=== PATIENT | female | born 1995 | race Caucasian/White ===

== ENCOUNTER → 2016-08-17 | Outpatient (CLI) | payer BC ==
--- NOTE | 2016-08-17 14:38 | US ---
EXAMINATION TYPE: US abdomen complete DATE OF EXAM: 08/17/2016 2:12 PM COMPARISON: 10/08/2013 CLINICAL HISTORY: R10.30 lower abdominal pain. left flank pain EXAM MEASUREMENTS: Liver Length: 14.3 cm Gallbladder Wall: 0.1 cm CBD: 0.4 cm Spleen: 8.4 cm Right Kidney: 10.6 x 4.5 x 4.4 cm Left Kidney: 10.5 x 5.3 x 4.8 cm Findings: Pancreas: tail gassed out, vis portions wnl Liver: wnl Gallbladder: wnl Evidence for sonographic Arizmendi's sign: no CBD: wnl Spleen: wnl Right Kidney: wnl Left Kidney: wnl Upper IVC: wnl Abd Aorta: wnl The liver is homogenous. The intrahepatic portion of the IVC and proximal abdominal aorta are within normal limits. There is no evidence of cholelithiasis. Common bile duct is unremarkable. The visu alized portions of the pancreas are homogenous. The spleen is unremarkable. Kidneys are symmetric a nd free of hydronephrosis. No renal lesions are seen. IMPRESSION: No significant abnormality.
--- NOTE | 2016-08-17 14:38 | US ---
EXAMINATION TYPE: US transvaginal DATE OF EXAM: 08/17/2016 2:27 PM COMPARISON: NONE CLINICAL HISTORY: R10.30 lower abdominal pain. rt states left flank pain TECHNIQUE: Transvaginal (TV) Date of LMP: has subcutaneous control chip in arm x 2 yrs, no cycles EXAM MEASUREMENTS: Uterus: 6.7 x 2.7 x 4.5 cm Endometrial Stripe: 0.1 cm Right Ovary: 2.4 x 1.6 x 3.0 cm Left Ovary: 2.6 x 1.2 x 2.3 cm Findings: 1. Uterus: Anteverted wnl 2. Endometrium: wnl 3. Right Ovary: wnl 4. Left Ovary: wnl 5. Bilateral Adnexa: wnl 6. Posterior cul-de-sac: Trace free fluid IMPRESSION: Trace free fluid. Otherwise unremarkable study.
== END | disposition home or self-care (01) ==
LOC: RADUSWWP 13:50
PROVIDERS: ATTEND Family Medicine
DX: R10.9 Unspecified abdominal pain (principal)
CPT/HCPCS: 76700; 76830

== ENCOUNTER 2017-03-05 11:35 | Emergency (ER) | payer BC ==
[2017-03-05] MEDS ORDERED: SODIUM CHLORIDE 0.9% 500 ML BAG ONE (11:38)
--- NOTE | 2017-03-05 12:49 | ED ---
General Adult HPI - General Stated complaint: vomiting blood/stomach burning Time Seen by Provider: 03/05/17 12:30 Source: RN notes reviewed - History of Present Illness Initial comments: This is a 21-year-old female presents emergency Department stating about 9:00 this morning she started becoming nauseated and then started vomiting. Patient states then she had an episode of blood in the vomitus. Patient states she has a little epigastric abdominal pain. Patient denies any diarrhea. Patient denies any fever chills. Patient states she does not feel ill in any other way. Patient did not take anything for the vomiting. Patient denies chest pain difficulty breathing shortness breath. Patient denies any previous history of similar. - Related Data Home Medications Medication Instructions Recorded Confirmed Levonorgestrel-Ethin Estradiol 1 tab PO HS 03/05/17 03/05/17 [Trivora-28 Tablet] Allergies Allergy/AdvReac Type Severity Reaction Status Date / Time azithromycin [From Zithromax] Allergy Unknown Verified 03/05/17 13:38 latex Allergy Rash/Hives Verified 03/05/17 13:38 Review of Systems ROS Statement: Those systems with pertinent positive or pertinent negative responses have been documented in the HPI. ROS Other: All systems not noted in ROS Statement are negative. Past Medical History Past Medical History: No Reported History History of Any Multi-Drug Resistant Organisms: None Reported Past Surgical History: Tonsillectomy Past Psychological History: No Psychological Hx Reported Smoking Status: Never smoker Past Alcohol Use History: None Reported Past Drug Use History: None Reported General Exam - General Exam Comments Initial Comments: GENERAL: Patient is well-developed and well-nourished. Patient is nontoxic and well- hydrated and is in mild distress. ENT: Neck is soft and supple. No significant lymphadenopathy is noted. Oropharynx is clear. Moist mucous membranes. Neck has full range of motion without eliciting any pain. EYES: The sclera were anicteric and conjunctiva were pink and moist. Extraocular movements were intact and pupils were equal round and reactive to light. Eyelids were unremarkable. PULMONARY: Unlabored respirations. Good breath sounds bilaterally. No audible rales rhonchi or wheezing was noted. CARDIOVASCULAR: There is a regular rate and rhythm without any murmurs gallops or rubs. ABDOMEN: Soft and nontender with normal bowel sounds. No palpable organomegaly was noted. There is no palpable pulsatile mass. SKIN: Skin is clear with no lesions or rashes and otherwise unremarkable. NEUROLOGIC: Patient is alert and oriented x3. Cranial nerves II through XII are grossly intact. Motor and sensory are also intact. Normal speech, volume and content. Symmetrical smile. MUSCULOSKELETAL: Normal extremities with adequate strength and full range of motion. LYMPHATICS: No significant lymphadenopathy is noted PSYCHIATRIC: Normal psychiatric evaluation. Medical Decision Making - Medical Decision Making I went back into the room to reevaluate the patient she was no longer having abdominal pain she was no longer nauseated. Patient felt good enough to be discharged home to follow-up with her family doctor - Lab Data Result diagrams: 03/05/17 12:42 03/05/17 12:42 Lab Results 03/05/17 03/05/17 03/05/17 Range/Units 12:42 12:42 12:42 WBC 7.4 (4.0-11.0) k/uL RBC 3.82 (3.80-5.40) m/uL Hgb 12.0 (11.4-16.0) gm/dL Hct 35.2 (34.0-46.0) % MCV 92.1 (80.0-100.0) fL MCH 31.4 (25.0-35.0) pg MCHC 34.1 (31.0-37.0) g/dL RDW 12.5 (11.5-15.5) % Plt Count 247 (150-450) k/uL Neutrophils % (Manual) 60 % Lymphocytes % (Manual) 33 % Monocytes % (Manual) 4 % Eosinophils % (Manual) 1 % Basophils % (Manual) 0 % Neutrophils # (Manual) 4.44 (1.3-7.7) k/uL Lymphocytes # (Manual) 2.44 (1.0-4.8) k/uL Monocytes # (Manual) 0.30 (0-1.0) k/uL Eosinophils # (Manual) 0.07 (0-0.7) k/uL Basophils # (Manual) 0.00 (0-0.2) k/uL PT 11.0 (9.0-12.0) sec INR 1.1 (<1.2) APTT 24.1 (22.0-30.0) sec Sodium 139 (137-145) mmol/L Potassium 3.8 (3.5-5.1) mmol/L Chloride 108 H (98-107) mmol/L Carbon Dioxide 23 (22-30) mmol/L Anion Gap 8 mmol/L BUN 7 (7-17) mg/dL Creatinine 0.50 L (0.52-1.04) mg/dL Est GFR (MDRD) Af Amer >60 (>60 ml/min/1.73 sqM) Est GFR (MDRD) Non-Af >60 (>60 ml/min/1.73 sqM) Glucose 84 (74-99) mg/dL Calcium 9.5 (8.4-10.2) mg/dL Total Bilirubin 0.4 (0.2-1.3) mg/dL AST 15 (14-36) U/L ALT 29 (9-52) U/L Alkaline Phosphatase 42 (38-126) U/L Total Protein 6.9 (6.3-8.2) g/dL Albumin 4.1 (3.5-5.0) g/dL Amylase 33 (30-110) U/L Lipase 86 (23-300) U/L Disposition Clinical Impression: Hematemesis, Acute vomiting Disposition: HOME SELF-CARE Condition: Good Instructions: Acute Nausea and Vomiting (ED) Referrals: Byron Leslie MD [Primary Care Provider] - 1-2 days Time of Disposition: 14:32
[2017-03-05 13:13] LABS: HCT 35.2 % (34.0-46.0); MCH 31.4 pg (25.0-35.0); MCV 92.1 fL (80.0-100.0); RBC 3.82 m/uL (3.80-5.40); WBC 7.4 k/uL (4.0-11.0)
[2017-03-05 13:14] LABS: CH 30.8; CHCM 33.6; HDW 2.27; MCHC 34.1 g/dL (31.0-37.0); Mean Platelet Volume 7.2; RDW 12.5 % (11.5-15.5)
[2017-03-05 13:24] LABS: INR 1.1 (<1.2); Partial Thromboplastin Time 24.1 sec (22.0-30.0)
[2017-03-05 13:26] LABS: ALT 29 U/L (9-52); AST 15 U/L (14-36); Alkaline Phosphatase 42 U/L (38-126); Amylase 33 U/L (30-110); Anion Gap 8 mmol/L; Blood Urea Nitrogen 7 mg/dL (7-17); Calcium 9.5 mg/dL (8.4-10.2); Carbon Dioxide 23 mmol/L (22-30); Chloride 108 mmol/L (98-107); Glucose 84 mg/dL (74-99); Non-African American GFR(MDRD) >60 (>60 ml/min/1.73 sqM); Potassium 3.8 mmol/L (3.5-5.1); Sodium 139 mmol/L (137-145); Total Bilirubin 0.4 mg/dL (0.2-1.3); Total Protein 6.9 g/dL (6.3-8.2)
--- NOTE | 2017-03-05 14:20 | XR ---
EXAMINATION TYPE: XR abdomen 1V DATE OF EXAM: 03/05/2017 CLINICAL HISTORY: Pain and hemoptysis. TECHNIQUE: 2 upright KUB images of the abdomen are obtained. COMPARISON: None. FINDINGS: Scattered gas is seen in non-distended small bowel loops. Gas and fecal material is seen in non-distended colon. Several overlying metallic skin ornaments are present. There is no visceromeg denise, pneumoperitoneum, or abnormal calcification appreciated. The lung bases are clear and the osse ous structures are intact. IMPRESSION: Overall nonobstructive bowel gas pattern.
--- NOTE | 2017-03-05 14:20 | XR ---
EXAMINATION TYPE: XR chest 2V DATE OF EXAM: 03/05/2017 CLINICAL HISTORY: Pain and hemoptysis. TECHNIQUE: Frontal and lateral views of the chest are obtained. COMPARISON: Chest x-ray June 13, 2016. FINDINGS: There is no focal air space opacity, pleural effusion, or pneumothorax seen. The cardiac silhouette size is within normal limits. The osseous structures are intact. Metallic ornament overl ies the mid sternum. IMPRESSION: No acute process identified.
[2017-03-05] MEDS ORDERED: ONDANSETRON 4 MG ODT STARTER PACK 2 TAB BTL PO STA (14:33)
[2017-03-05 14:49] VITALS: BP 134/87; PULSE 87; RESP 18; TEMP 98.4
== END 2017-03-05 14:49 | disposition home or self-care (01) ==
LOC: EC 11:35
DX: K92.0 Hematemesis (principal); R07.9 Chest pain, unspecified; Z79.3 Long term (current) use of hormonal contraceptives; Z88.1 Allergy status to other antibiotic agents; Z91.040 Latex allergy status
CPT/HCPCS: 99284 ×2; 36415; 80053; 82150; 83690; 85027; 85610; 85730; 71020; 74000; S0119

== ENCOUNTER 2017-03-14 14:13 | Emergency (ER) | payer OTHER, BC ==
[2017-03-14 14:31] VITALS: BP 122/84; PULSE 98; RESP 18; TEMP 97.6
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
== END 2017-03-14 15:18 | disposition home or self-care (01) ==
LOC: EC 14:13
DX: S46.912A Strain of unspecified muscle, fascia and tendon at shoulder and upper arm level, left arm, initial encounter (principal); S09.90XA Unspecified injury of head, initial encounter; Z88.1 Allergy status to other antibiotic agents; Z91.040 Latex allergy status; Z79.3 Long term (current) use of hormonal contraceptives; V43.53XA Car driver injured in collision with pick-up truck in traffic accident, initial encounter; Y92.410 Unspecified street and highway as the place of occurrence of the external cause
CPT/HCPCS: 70450; 72125; 99284

== ENCOUNTER → 2017-04-11 | Outpatient (CLI) | payer BC ==
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
== END | disposition home or self-care (01) ==
LOC: RADCTMAIN 07:55
PROVIDERS: ATTEND Orthopaedic Surgery
DX: R93.7 Abnormal findings on diagnostic imaging of other parts of musculoskeletal system (principal); M25.512 Pain in left shoulder; S40.012A Contusion of left shoulder, initial encounter
CPT/HCPCS: 73202; Q9967

== ENCOUNTER 2017-09-19 10:56 | Emergency (ER) | payer BC ==
[2017-09-19] MEDS ORDERED: ACETAMINOPHEN TAB 500 MG TAB PO STA (12:08)
[2017-09-19] MEDS ORDERED: IBUPROFEN 600 MG TAB PO STA (12:08)
--- NOTE | 2017-09-19 12:15 | ED ---
URI HPI - General Chief Complaint: Upper Respiratory Infection Stated Complaint: bronchitis, Dehydration Time Seen by Provider: 09/19/17 12:00 Source: patient, RN notes reviewed Mode of arrival: ambulatory Limitations: no limitations - History of Present Illness Initial Comments: This is a 22-year-old female who presents to the emergency department with chief complaint of bronchitis. Patient states that she has had fevers, chills, body aches, sore throat, and a nonproductive cough since Saturday. She was seen at her doctor's office on Saturday and was diagnosed with allergies. She returned to her doctor's yesterday and was diagnosed with bronchitis. She was given a shot of Rocephin and was prescribed amoxicillin and an albuterol inhaler. Patient states that she is not feeling any better so presents to the emergency department today. Denies abdominal pain, nausea or vomiting, diarrhea or constipation. Appetite is poor, however patient does continue to urinate normally. Her last dose of medication was 7:30 this morning when she took Tylenol cold and flu. - Related Data Home Medications Medication Instructions Recorded Confirmed Levonorgestrel-Ethin Estradiol 1 tab PO HS 03/05/17 03/05/17 [Trivora-28 Tablet] Previous Rx's Medication Instructions Recorded Cefdinir [Omnicef] 300 mg PO Q12HR #14 capsule 09/19/17 predniSONE 20 mg PO BID #6 tab 09/19/17 Allergies Allergy/AdvReac Type Severity Reaction Status Date / Time azithromycin [From Zithromax] Allergy Unknown Verified 03/14/17 14:25 latex Allergy Rash/Hives Verified 03/14/17 14:25 tramadol [From Ultram] Allergy Rash/Hives Verified 09/19/17 11:08 Review of Systems ROS Statement: Those systems with pertinent positive or pertinent negative responses have been documented in the HPI. ROS Other: All systems not noted in ROS Statement are negative. Past Medical History Past Medical History: No Reported History History of Any Multi-Drug Resistant Organisms: None Reported Past Surgical History: Tonsillectomy Past Psychological History: No Psychological Hx Reported Smoking Status: Never smoker Past Alcohol Use History: None Reported Past Drug Use History: None Reported General Exam - General Exam Comments Initial Comments: General: Awake and alert, well-developed; in no apparent distress. Mother is at bedside. HEENT: Head atraumatic, normocephalic. Pupils are equal, round and reactive to light. Extraocular movements intact. Oropharynx moist without erythema or exudate. Neck: Supple. Normal ROM. Cardiovascular: Regular rate and rhythm. No murmurs, rubs or gallops. Chest symmetrical. Respiratory: Normal respiratory effort with no use of accessory muscles. Rhonchi left lower lobe. No wheezes or rales. Abdomen: Soft, non-tender, non-distended. No rigidity, rebound or guarding. Normal bowel sounds in all 4 quadrants. Musculoskeletal: Normal ROM, no tenderness bilateral upper and lower extremities. Ambulating normally. Skin: [place], warm and dry without rashes or lesions. Neurological: Alert and oriented x3. CN II-XII grossly intact. Speech is fluent and answers are appropriate. No focal neuro deficits. Psychiatric: Normal mood and affect. No overt signs of depression or anxiety noted. Limitations: no limitations Course Vital Signs 09/19/17 09/19/17 11:03 13:08 Temperature 101.1 F H 99.4 F Pulse Rate 112 H 104 H Respiratory 20 18 Rate Blood Pressure 123/80 113/65 O2 Sat by Pulse 98 98 Oximetry Medical Decision Making - Medical Decision Making This is a 22-year-old female who presents to the emergency department with chief complaint of bronchitis. Patient is febrile on presentation. She was given doses of Tylenol and Motrin. Patient tested negative for influenza, strep throat and Michele-Bowman virus. Chest x-ray revealed no acute cardiopulmonary processes. Rhonchi was noted in the left lower lobe. Amoxicillin will be discontinued and patient will be placed on cefdinir as she is allergic to azithromycin. She'll also be prescribed 3 days worth of steroids. Patient's vital signs have stabilized and she is in no acute distress. She will be discharged home. Return parameters were discussed. She is in agreement with plan and voices understanding. All questions were answered. - Lab Data Lab Results 09/19/17 09/19/17 Range/Units 11:10 12:30 Heterophile Antibody Negative (Negative) Influenza Type A RNA Not Detected (Not Detectd) Influenza Type B (PCR) Not Detected (Not Detectd) Group A Strep Rapid Negative (Negative) - Radiology Data Radiology results: report reviewed Chest x-ray findings: The cardiomediastinal silhouette, aorta and pulmonary vasculature are within normal limits. Lungs and pleural space are clear. Right mammary ornamentation. Impression: No acute cardiopulmonary process. Disposition Clinical Impression: Bronchitis Disposition: HOME SELF-CARE Condition: Good Instructions: Upper Respiratory Infection (ED), Acute Bronchitis (ED) Additional Instructions: Please take medications as prescribed. Please follow up with primary care provider within 1-2 days. Return to emergency department if symptoms should worsen or any concerns arise. Prescriptions: Cefdinir [Omnicef] 300 mg PO Q12HR #14 capsule predniSONE 20 mg PO BID #6 tab Referrals: Byron Leslie MD [Primary Care Provider] - 1-2 days Time of Disposition: 13:28
--- NOTE | 2017-09-19 12:16 | XR ---
EXAMINATION TYPE: XR chest 2V DATE OF EXAM: 09/19/2017 COMPARISON: 03/05/2017 HISTORY: 22-year-old female with pain TECHNIQUE: PA and lateral views FINDINGS: The cardiomediastinal silhouette, aorta, and pulmonary vasculature are within normal limits. Lungs an d pleural spaces are clear. Right mammary ornamentation. IMPRESSION: No acute cardiopulmonary process.
[2017-09-19 13:09] VITALS: BP 113/65; PULSE 104; RESP 18; TEMP 99.4
[2017-09-19] MEDS ORDERED: predniSONE 50 MG TAB PO STA (13:25)
== END 2017-09-19 13:37 | disposition home or self-care (01) ==
LOC: EC 10:56
DX: J40 Bronchitis, not specified as acute or chronic (principal); Z88.1 Allergy status to other antibiotic agents; Z88.5 Allergy status to narcotic agent; Z91.040 Latex allergy status; Z79.3 Long term (current) use of hormonal contraceptives
CPT/HCPCS: 36415; 71046; 86308; 87081; 87430; 87502; 99283

== ENCOUNTER 2017-11-23 06:55 | Emergency (ER) | payer OTHER, BC ==
[2017-11-23 08:01] LABS: Basophils % (A) 0 %; Eosinophils % (A) 0 %; HCT 37.1 % (34.0-46.0); HGB 12.4 gm/dL (11.4-16.0); Lymphocytes # (A) 0.7 k/uL (1.0-4.8); Lymphocytes % (A) 5 %; MCH 30.7 pg (25.0-35.0); MCHC 33.5 g/dL (31.0-37.0); MCV 91.8 fL (80.0-100.0); Mean Platelet Volume 7.4; Monocytes # (A) 0.4 k/uL (0-1.0); Monocytes % (A) 4 %; Neutrophils # (A) 11.2 k/uL (1.3-7.7); Neutrophils % (A) 90 %; Platelet Count 207 k/uL (150-450); RBC 4.05 m/uL (3.80-5.40); RDW 13.5 % (11.5-15.5); WBC 12.4 k/uL (3.8-10.6)
[2017-11-23 08:11] LABS: ALT 29 U/L (9-52); AST 17 U/L (14-36); Albumin 4.2 g/dL (3.5-5.0); Alkaline Phosphatase 44 U/L (38-126); Amylase 54 U/L (30-110); Anion Gap 14 mmol/L; Blood Urea Nitrogen 9 mg/dL (7-17); Calcium 9.7 mg/dL (8.4-10.2); Carbon Dioxide 24 mmol/L (22-30); Chloride 103 mmol/L (98-107); Glucose 86 mg/dL (74-99); Lipase 77 U/L (23-300); Potassium 3.7 mmol/L (3.5-5.1); Sodium 141 mmol/L (137-145); Total Bilirubin 0.7 mg/dL (0.2-1.3); Total Protein 7.2 g/dL (6.3-8.2)
[2017-11-23] MEDS ORDERED: ONDANSETRON 4 MG/2 ML VIAL IVP STA (08:13)
[2017-11-23] MEDS ORDERED: SODIUM CHLORIDE 0.9% 2,000 ML IV ONE (08:13)
[2017-11-23 08:21] LABS: Appearance,Urine Cloudy (Clear); Bacteria,Urine Moderate /hpf; Bilirubin,Urine Negative (Negative); Blood,Urine Negative (Negative); Budding Yeast,Urine Rare /hpf; Color,Urine Yellow; Glucose,Urine (UA) Negative (Negative); Ketones,Urine 4+ (Negative); Leukocyte Esterase,Urine Small (Negative); Mucus,Urine Many /hpf; Nitrite,Urine Negative (Negative); PH, Urine 6.5 (5.0-8.0); Protein,Urine 1+ (Negative); RBC,Urine 13 /hpf (0-5); Specific Gravity,Urine 1.025 (1.001-1.035); Squamous Epithelial Cell,Urine 35 /hpf (0-4); Urobilinogen,Urine <2.0 mg/dL (<2.0); WBC,Urine 14 /hpf (0-5)
--- NOTE | 2017-11-23 08:24 | ED ---
Abdominal Pain HPI - General Chief Complaint: Abdominal Pain Stated Complaint: Rib Pain/Vomiting Time Seen by Provider: 11/23/17 08:07 Source: patient, RN notes reviewed Mode of arrival: wheelchair Limitations: no limitations - History of Present Illness Initial Comments: 22-year-old female presents emergency Department chief complaint of right-sided abdominal pain. Patient states started last day or so. She states it has worsened since 3 AM this morning when woke up and she has been vomiting every half an hour. Patient states that it hurts when she tries to twist and bend and in the car ride. Patient denies any diarrhea constipation. She does have a urinary tract infection yesterday in which she took one nasal. Patient reports feeling that she had fever at home was 99.4. Patient denies any headache, dizziness. Denies any back pain no flank pain. - Related Data Home Medications Medication Instructions Recorded Confirmed Levonorgestrel-Ethin Estradiol 1 tab PO HS 03/05/17 11/23/17 [Trivora-28 Tablet] Ranitidine HCl [Zantac] 150 mg PO BID 11/23/17 11/23/17 Previous Rx's Medication Instructions Recorded Ondansetron Odt [Zofran Odt] 4 mg PO Q8HR PRN #10 tab 11/23/17 Allergies Allergy/AdvReac Type Severity Reaction Status Date / Time azithromycin [From Zithromax] Allergy Unknown Verified 11/23/17 07:05 latex Allergy Rash/Hives Verified 11/23/17 07:05 tramadol [From Ultram] Allergy Rash/Hives Verified 11/23/17 07:05 Review of Systems ROS Statement: Those systems with pertinent positive or pertinent negative responses have been documented in the HPI. ROS Other: All systems not noted in ROS Statement are negative. Past Medical History Past Medical History: No Reported History History of Any Multi-Drug Resistant Organisms: None Reported Past Surgical History: Tonsillectomy Past Psychological History: No Psychological Hx Reported Smoking Status: Never smoker Past Alcohol Use History: None Reported Past Drug Use History: None Reported General Exam Limitations: no limitations General appearance: alert, in no apparent distress Head exam: Present: atraumatic, normocephalic, normal inspection Respiratory exam: Present: normal lung sounds bilaterally. Absent: respiratory distress, wheezes, rales, rhonchi, stridor Cardiovascular Exam: Present: regular rate, normal rhythm, normal heart sounds. Absent: systolic murmur, diastolic murmur, rubs, gallop, clicks GI/Abdominal exam: Present: soft, tenderness ([id number] right-sided, right mid to right lower quadrant tenderness), normal bowel sounds. Absent: distended, guarding, rebound, rigid Back exam: Absent: CVA tenderness (R), CVA tenderness (L) Skin exam: Present: warm, dry, intact, normal color. Absent: rash Course Vital Signs 11/23/17 11/23/17 11/23/17 07:01 07:53 08:26 Temperature 99.5 F 99.4 F Pulse Rate 107 H 95 Respiratory 18 16 Rate Blood Pressure 115/82 122/68 O2 Sat by Pulse 98 97 Oximetry 11/23/17 09:35 Temperature 99.3 F Pulse Rate Respiratory Rate Blood Pressure O2 Sat by Pulse Oximetry Medical Decision Making - Medical Decision Making 22-year-old female presented for abdominal pain nausea vomiting. Patient does have some free fluid in the cul-de-sac and CT concern for possible ruptured ovarian cyst. Patient most likely has nausea vomiting related to gastroenteritis. Patient we discharged with Zofran she was hydrated as she had 4+ ketones and urinalysis. Patient does feel improved after antiemetics will be discharged. Return parameters were discussed - Lab Data Result diagrams: 11/23/17 07:43 11/23/17 07:43 Lab Results 11/23/17 11/23/17 11/23/17 Range/Units 07:43 07:43 07:43 WBC 12.4 H (3.8-10.6) k/uL RBC 4.05 (3.80-5.40) m/uL Hgb 12.4 (11.4-16.0) gm/dL Hct 37.1 (34.0-46.0) % MCV 91.8 (80.0-100.0) fL MCH 30.7 (25.0-35.0) pg MCHC 33.5 (31.0-37.0) g/dL RDW 13.5 (11.5-15.5) % Plt Count 207 (150-450) k/uL Neutrophils % 90 % Lymphocytes % 5 % Monocytes % 4 % Eosinophils % 0 % Basophils % 0 % Neutrophils # 11.2 H (1.3-7.7) k/uL Lymphocytes # 0.7 L (1.0-4.8) k/uL Monocytes # 0.4 (0-1.0) k/uL Eosinophils # 0.0 (0-0.7) k/uL Basophils # 0.0 (0-0.2) k/uL Sodium 141 (137-145) mmol/L Potassium 3.7 (3.5-5.1) mmol/L Chloride 103 (98-107) mmol/L Carbon Dioxide 24 (22-30) mmol/L Anion Gap 14 mmol/L BUN 9 (7-17) mg/dL Creatinine 0.53 (0.52-1.04) mg/dL Est GFR (CKD-EPI)AfAm >90 (>60 ml/min/1.73 sqM) Est GFR (CKD-EPI)NonAf >90 (>60 ml/min/1.73 sqM) Glucose 86 (74-99) mg/dL Calcium 9.7 (8.4-10.2) mg/dL Total Bilirubin 0.7 (0.2-1.3) mg/dL AST 17 (14-36) U/L ALT 29 (9-52) U/L Alkaline Phosphatase 44 (38-126) U/L Total Protein 7.2 (6.3-8.2) g/dL Albumin 4.2 (3.5-5.0) g/dL Amylase 54 (30-110) U/L Lipase 77 (23-300) U/L Urine Color Urine Appearance (Clear) Urine pH (5.0-8.0) Ur Specific [place] (1.001-1.035) Urine Protein (Negative) Urine Glucose (UA) (Negative) Urine Ketones (Negative) Urine Blood (Negative) Urine Nitrite (Negative) Urine Bilirubin (Negative) Urine Urobilinogen (<2.0) mg/dL Ur Leukocyte Esterase (Negative) Urine RBC (0-5) /hpf Urine WBC (0-5) /hpf Ur Squamous Epith Cells (0-4) /hpf Urine Bacteria (None) /hpf Urine Mucus (None) /hpf Urine Yeast (Budding) (None) /hpf Urine HCG, Qual Not Detected (Not Detectd) 11/23/17 Range/Units 07:43 WBC (3.8-10.6) k/uL RBC (3.80-5.40) m/uL Hgb (11.4-16.0) gm/dL Hct (34.0-46.0) % MCV (80.0-100.0) fL MCH (25.0-35.0) pg MCHC (31.0-37.0) g/dL RDW (11.5-15.5) % Plt Count (150-450) k/uL Neutrophils % % Lymphocytes % % Monocytes % % Eosinophils % % Basophils % % Neutrophils # (1.3-7.7) k/uL Lymphocytes # (1.0-4.8) k/uL Monocytes # (0-1.0) k/uL Eosinophils # (0-0.7) k/uL Basophils # (0-0.2) k/uL Sodium (137-145) mmol/L Potassium (3.5-5.1) mmol/L Chloride (98-107) mmol/L Carbon Dioxide (22-30) mmol/L Anion Gap mmol/L BUN (7-17) mg/dL Creatinine (0.52-1.04) mg/dL Est GFR (CKD-EPI)AfAm (>60 ml/min/1.73 sqM) Est GFR (CKD-EPI)NonAf (>60 ml/min/1.73 sqM) Glucose (74-99) mg/dL Calcium (8.4-10.2) mg/dL Total Bilirubin (0.2-1.3) mg/dL AST (14-36) U/L ALT (9-52) U/L Alkaline Phosphatase (38-126) U/L Total Protein (6.3-8.2) g/dL Albumin (3.5-5.0) g/dL Amylase (30-110) U/L Lipase (23-300) U/L Urine Color Yellow Urine Appearance Cloudy H (Clear) Urine pH 6.5 (5.0-8.0) Ur Specific [place] 1.025 (1.001-1.035) Urine Protein 1+ H (Negative) Urine Glucose (UA) Negative (Negative) Urine Ketones 4+ H (Negative) Urine Blood Negative (Negative) Urine Nitrite Negative (Negative) Urine Bilirubin Negative (Negative) Urine Urobilinogen <2.0 (<2.0) mg/dL Ur Leukocyte Esterase Small H (Negative) Urine RBC 13 H (0-5) /hpf Urine WBC 14 H (0-5) /hpf Ur Squamous Epith Cells 35 H (0-4) /hpf Urine Bacteria Moderate H (None) /hpf Urine Mucus Many H (None) /hpf Urine Yeast (Budding) Rare H (None) /hpf Urine HCG, Qual (Not Detectd) Disposition Clinical Impression: Gastroenteritis Disposition: HOME SELF-CARE Condition: Stable Instructions: Gastroenteritis (ED) Additional Instructions: Please return to the Emergency Department if symptoms worsen or any other concerns. Prescriptions: Ondansetron Odt [Zofran Odt] 4 mg PO Q8HR PRN #10 tab PRN Reason: Nausea Is patient prescribed a controlled substance at d/c from ED?: No Referrals: Byron Leslie MD [Primary Care Provider] - 1-2 days Time of Disposition: 10:02
[2017-11-23 08:28] VITALS: PULSE 95
--- NOTE | 2017-11-23 09:33 | CT ---
EXAMINATION TYPE: CT abdomen pelvis w con DATE OF EXAM: 11/23/2017 COMPARISON: NONE HISTORY: Rt mid abd pain CT DLP: 326.8 mGycm CONTRAST: CT scan of the abdomen and pelvis is performed without Oral Contrast and with IV Contrast, patient in jected with 100 mL of Isovue 300. FINDINGS: LUNG BASES-: No visible nodule. No infiltrate. LIVER/GB: No calcified gallstones. No space occupying hepatic lesion. Biliary tree is of normal ca liber. PANCREAS: No inflammation. No distinct mass. SPLEEN: No splenic enlargement. No lesion seen. ADRENALS: No nodule. No thickening. KIDNEYS/BLADDER: No hydronephrosis. No nephrolithiasis. No distinct renal mass. Urinary bladder g rossly unremarkable. BOWEL: Normal appendix. Normal bowel caliber. No inflammation. GENITAL ORGANS: There Is a small amount of free fluid within the cul-de-sac. No evidence for uterine or ovarian mass. LYMPH NODES: No greater than 1cm abdominal or pelvic lymph nodes are appreciated. AORTA: No significant abnormality. OSSEOUS STRUCTURES: No significant abnormality is seen. OTHER: No significant additional abnormality is seen. IMPRESSION: 1. Small amount of free fluid within the cul-de-sac. There appears to normal appendix. No inflammator y process seen with certainty.
[2017-11-23] MEDS ORDERED: METOCLOPRAMIDE 5 MG/ML 2 ML VIAL IVP STA (09:43)
[2017-11-23 10:15] VITALS: BP 100/64; RESP 18; TEMP 98.6
== END 2017-11-23 10:16 | disposition home or self-care (01) ==
LOC: EC 06:55
DX: K52.9 Noninfective gastroenteritis and colitis, unspecified (principal); R82.4 Acetonuria; N39.0 Urinary tract infection, site not specified; Z79.3 Long term (current) use of hormonal contraceptives; Z79.899 Other long term (current) drug therapy; Z88.1 Allergy status to other antibiotic agents; Z88.5 Allergy status to narcotic agent; Z91.040 Latex allergy status
CPT/HCPCS: 36415; 80053; 82150; 83690; 85025; 81001; 81025; 87086; 74177; 99284; 96374; 96375; 96361 ×2; J2765; J2405; Q9967

== ENCOUNTER 2017-11-25 14:04 | Observation (INO) | payer OTHER, BC ==
[2017-11-25] MEDS ORDERED: SODIUM CHLORIDE 0.9% 1,000 ML IV ONE (15:02)
[2017-11-25] MEDS ORDERED: KETOROLAC 30 MG/ML 1 ML VIAL IVP STA (15:02)
--- NOTE | 2017-11-25 15:09 | ED ---
Abdominal Pain HPI - General Chief Complaint: Abdominal Pain Stated Complaint: appendix-sent by Time Seen by Provider: 11/25/17 14:48 Source: patient Mode of arrival: ambulatory Limitations: no limitations - History of Present Illness Initial Comments: Patient is a 22-year-old female presents with chief complaint of right lower quadrant pain. Patient states that she was seen here on the second for a similar complaint, had a normal workup, and was discharged home. Patient followed up with her primary care physician today who again is concerned for appendicitis and sent her back to the emergency department. Patient states that her right lower quadrant pain is associated with nausea and vomiting, loss of appetite, and constipation. She further admits to having a fever of 100.4 at home. - Related Data Home Medications Medication Instructions Recorded Confirmed Ranitidine HCl [Zantac] 150 mg PO BID 11/23/17 11/25/17 Falmina-28 1 tab PO HS 11/25/17 11/25/17 Allergies Allergy/AdvReac Type Severity Reaction Status Date / Time azithromycin [From Zithromax] Allergy Unknown Verified 11/25/17 15:09 latex Allergy Rash/Hives Verified 11/25/17 15:09 tramadol [From Ultram] Allergy Rash/Hives Verified 11/25/17 15:09 Review of Systems ROS Statement: Those systems with pertinent positive or pertinent negative responses have been documented in the HPI. ROS Other: All systems not noted in ROS Statement are negative. Gastrointestinal: Reports: abdominal pain, nausea, vomiting, constipation Past Medical History Past Medical History: No Reported History History of Any Multi-Drug Resistant Organisms: None Reported Past Surgical History: Tonsillectomy Past Psychological History: No Psychological Hx Reported Smoking Status: Never smoker Past Alcohol Use History: None Reported Past Drug Use History: None Reported General Exam Limitations: no limitations General appearance: alert, in no apparent distress Head exam: Present: atraumatic, normocephalic Eye exam: Present: normal appearance ENT exam: Present: normal exam, mucous membranes moist Neck exam: Present: normal inspection Respiratory exam: Present: normal lung sounds bilaterally. Absent: respiratory distress, wheezes Cardiovascular Exam: Present: regular rate, normal rhythm GI/Abdominal exam: Present: soft, tenderness (RLQ and RUQ tenderness. + rovsings sign, + obturator sign, +mcburney's tenderness. abdomen with localized peritonitis in the RLQ. ). Absent: distended Rectal exam: Present: deferred Extremities exam: Present: normal inspection Back exam: Present: normal inspection Neurological exam: Present: alert, oriented X3 Psychiatric exam: Present: normal affect, normal mood Skin exam: Present: warm, dry, intact Course Vital Signs 11/25/17 11/25/17 11/25/17 14:05 16:08 18:45 Temperature 98.2 F Pulse Rate 80 89 77 Respiratory 18 20 20 Rate Blood Pressure 133/85 141/64 104/64 O2 Sat by Pulse 100 99 99 Oximetry 11/25/17 19:20 Temperature 98.1 F Pulse Rate 68 Respiratory 16 Rate Blood Pressure 106/69 O2 Sat by Pulse Oximetry Medical Decision Making - Medical Decision Making Patient presents with a chief complaint of right lower quadrant pain. On initial evaluation, vitals are stable, patient is no acute distress. Exam is concerning for appendicitis. Review of patient's CAT scan on 11/23/17 shows a normal-appearing appendix however her symptoms have not improved. Case discussed with Dr. Lake who recommends re-imaging with oral and IV contrast. 7:44PM lab evaluation is unremarkable, negative, UA negative. CT abdomen and pelvis show an 8mm proximal appendix with wall edema consistent with appendicitis. I spoke with Dr. Lake again who agrees to admit the patient for surgical consult. rocephin and flagyl started, patient updated on findings. her and her family are agreeable. patient stable for transfer to floor. clear liquids until midnight, NPO after. - Lab Data Result diagrams: 11/25/17 15:10 11/25/17 15:10 Lab Results 11/25/17 11/25/17 11/25/17 Range/Units 15:10 15:10 16:20 WBC 10.4 (3.8-10.6) k/uL RBC 4.30 (3.80-5.40) m/uL Hgb 13.2 (11.4-16.0) gm/dL Hct 39.3 (34.0-46.0) % MCV 91.3 (80.0-100.0) fL MCH 30.6 (25.0-35.0) pg MCHC 33.5 (31.0-37.0) g/dL RDW 13.4 (11.5-15.5) % Plt Count 295 (150-450) k/uL Neutrophils % 72 % Lymphocytes % 21 % Monocytes % 4 % Eosinophils % 1 % Basophils % 0 % Neutrophils # 7.5 (1.3-7.7) k/uL Lymphocytes # 2.2 (1.0-4.8) k/uL Monocytes # 0.5 (0-1.0) k/uL Eosinophils # 0.1 (0-0.7) k/uL Basophils # 0.0 (0-0.2) k/uL Sodium 145 (137-145) mmol/L Potassium 3.5 (3.5-5.1) mmol/L Chloride 104 (98-107) mmol/L Carbon Dioxide 25 (22-30) mmol/L Anion Gap 16 mmol/L BUN 4 L (7-17) mg/dL Creatinine 0.50 L (0.52-1.04) mg/dL Est GFR (CKD-EPI)AfAm >90 (>60 ml/min/1.73 sqM) Est GFR (CKD-EPI)NonAf >90 (>60 ml/min/1.73 sqM) Glucose 93 (74-99) mg/dL Calcium 10.0 (8.4-10.2) mg/dL Total Bilirubin 0.3 (0.2-1.3) mg/dL AST 15 (14-36) U/L ALT 26 (9-52) U/L Alkaline Phosphatase 44 (38-126) U/L Total Protein 7.1 (6.3-8.2) g/dL Albumin 4.1 (3.5-5.0) g/dL Lipase 84 (23-300) U/L HCG, Qual Not Detected Urine Color Light Yellow Urine Appearance Clear (Clear) Urine pH 7.5 (5.0-8.0) Ur Specific [place] 1.004 (1.001-1.035) Urine Protein Negative (Negative) Urine Glucose (UA) Negative (Negative) Urine Ketones Negative (Negative) Urine Blood Negative (Negative) Urine Nitrite Negative (Negative) Urine Bilirubin Negative (Negative) Urine Urobilinogen <2.0 (<2.0) mg/dL Ur Leukocyte Esterase Negative (Negative) Disposition Clinical Impression: Appendicitis Disposition: ADMITTED IP TO THIS HOSP Condition: Good Referrals: Byron Leslie MD [Primary Care Provider] - 1-2 days Decision to Admit Reason: Admit from EC - Out of Hospital Transfer - Req. Specs Out of Hospital Transfer - Requested Specifics: Other Non-Acute
[2017-11-25] MEDS ORDERED: ONDANSETRON 4 MG/2 ML VIAL IVP STA (15:18)
[2017-11-25] MEDS ORDERED: IOPAMIDOL-300 CONTRAST 30 ML VIAL (ORAL USE) PO PRN (15:18)
[2017-11-25 15:27] LABS: Basophils % (A) 0 %; Eosinophils # (A) 0.1 k/uL (0-0.7); Eosinophils % (A) 1 %; HCT 39.3 % (34.0-46.0); HGB 13.2 gm/dL (11.4-16.0); Lymphocytes # (A) 2.2 k/uL (1.0-4.8); Lymphocytes % (A) 21 %; MCH 30.6 pg (25.0-35.0); MCHC 33.5 g/dL (31.0-37.0); MCV 91.3 fL (80.0-100.0); Mean Platelet Volume 7.4; Monocytes # (A) 0.5 k/uL (0-1.0); Monocytes % (A) 4 %; Neutrophils # (A) 7.5 k/uL (1.3-7.7); Neutrophils % (A) 72 %; Platelet Count 295 k/uL (150-450); RDW 13.4 % (11.5-15.5); WBC 10.4 k/uL (3.8-10.6)
[2017-11-25 15:37] LABS: HCG,Qualitative Serum Not Detected
[2017-11-25 15:43] LABS: ALT 26 U/L (9-52); AST 15 U/L (14-36); Albumin 4.1 g/dL (3.5-5.0); Alkaline Phosphatase 44 U/L (38-126); Anion Gap 16 mmol/L; Blood Urea Nitrogen 4 mg/dL (7-17); Carbon Dioxide 25 mmol/L (22-30); Chloride 104 mmol/L (98-107); Glucose 93 mg/dL (74-99); Lipase 84 U/L (23-300); Potassium 3.5 mmol/L (3.5-5.1); Sodium 145 mmol/L (137-145); Total Bilirubin 0.3 mg/dL (0.2-1.3); Total Protein 7.1 g/dL (6.3-8.2)
[2017-11-25] MEDS: MORPHINE SULFATE 2 MG/ML SYRINGE IVP PRN ×2 (16:15→20:46)
[2017-11-25 16:31] LABS: Appearance,Urine Clear (Clear); Bilirubin,Urine Negative (Negative); Blood,Urine Negative (Negative); Color,Urine Light Yellow; Glucose,Urine (UA) Negative (Negative); Ketones,Urine Negative (Negative); Leukocyte Esterase,Urine Negative (Negative); Nitrite,Urine Negative (Negative); PH, Urine 7.5 (5.0-8.0); Protein,Urine Negative (Negative); Specific Gravity,Urine 1.004 (1.001-1.035); Urobilinogen,Urine <2.0 mg/dL (<2.0)
--- NOTE | 2017-11-25 19:15 | CT ---
EXAMINATION TYPE: CT abdomen pelvis w con DATE OF EXAM: 11/25/2017 COMPARISON: 12-09 HISTORY: Patient complains of RLQ pain. CT DLP: 362.8 mGycm Automated exposure control for dose reduction was used. TECHNIQUE: Helical acquisition of images was performed from the lung bases through the pelvis. CONTRAST: Performed with Oral Contrast and with IV Contrast, patient injected with 100 mL of Isovue 300. FINDINGS: LUNG BASES: No significant abnormality is appreciated. LIVER/GB: No significant abnormality is appreciated. PANCREAS: No significant abnormality is seen. SPLEEN: No significant abnormality is seen. ADRENALS: No significant abnormality is seen. KIDNEYS: No significant abnormality is seen. PERITONEAL CAVITY: There is a scant volume of cul-de-sac fluid. RETROPERITONEAL ADENOPATHY: None visualized REPRODUCTIVE ORGANS: No significant abnormality is seen URINARY BLADDER: No significant abnormality is seen. PELVIC ADENOPATHY: None visualized. OSSEOUS STRUCTURES: No significant abnormality is seen. BOWEL: The proximal appendix measures 8 mm in caliber, with top normal caliber being 6 mm. There is also minimal periappendiceal edematous reticulation. These are subtle findings, involving only a port ion of the appendix, but they can correlate with a clinical diagnosis of noncomplicated appendicitis. Remainder of the bowel examination is unremarkable. VASCULATURE: Unremarkable. IMPRESSION: SUBTLE CT FINDINGS WHICH CAN CORRELATE WITH A CLINICAL DIAGNOSIS OF NONCOMPLICATED APPENDICITIS.
[2017-11-25] MEDS ORDERED: cefTRIAXone IN SWFI 1,000 MG/10 ML SYRINGE IVP STA (19:20)
[2017-11-25] MEDS ORDERED: metroNIDAZOLE-NS PMX 500 MG in SALINE 1 100ML.BAG IVPB STA (19:20)
[2017-11-25] MEDS ORDERED: NALOXONE 0.4 MG/ML 1 ML VIAL IV PRN (19:46)
[2017-11-25] MEDS ORDERED: MORPHINE SULFATE 2 MG/ML SYRINGE IV PRN (19:46)
[2017-11-25] MEDS: ONDANSETRON 4 MG/2 ML VIAL IVP PRN (23:08)
[2017-11-25 23:27] VITALS: BMI 22.8
[2017-11-26] MEDS: SODIUM CHLORIDE 0.9% 1,000 ML IV SCH ×2 (00:35→13:48)
[2017-11-26] MEDS: MORPHINE SULFATE 2 MG/ML SYRINGE IVP PRN ×4 (00:45→19:57)
[2017-11-26] MEDS: ONDANSETRON 4 MG/2 ML VIAL IVP PRN ×2 (05:51→17:05)
[2017-11-26 06:35] LABS: Basophils % (A) 1 %; Eosinophils # (A) 0.1 k/uL (0-0.7); Eosinophils % (A) 1 %; HCT 31.8 % (34.0-46.0); HGB 10.5 gm/dL (11.4-16.0); Lymphocytes # (A) 2.2 k/uL (1.0-4.8); Lymphocytes % (A) 30 %; MCH 30.5 pg (25.0-35.0); MCHC 32.9 g/dL (31.0-37.0); MCV 92.7 fL (80.0-100.0); Mean Platelet Volume 6.8; Monocytes # (A) 0.4 k/uL (0-1.0); Monocytes % (A) 5 %; Neutrophils # (A) 4.6 k/uL (1.3-7.7); Neutrophils % (A) 61 %; Platelet Count 232 k/uL (150-450); RBC 3.43 m/uL (3.80-5.40); RDW 13.4 % (11.5-15.5); WBC 7.5 k/uL (3.8-10.6)
[2017-11-26 06:51] LABS: Anion Gap 11 mmol/L; Blood Urea Nitrogen 3 mg/dL (7-17); Calcium 8.9 mg/dL (8.4-10.2); Carbon Dioxide 25 mmol/L (22-30); Chloride 107 mmol/L (98-107); Glucose 79 mg/dL (74-99); Potassium 3.7 mmol/L (3.5-5.1); Sodium 143 mmol/L (137-145)
[2017-11-26] MEDS: KETOROLAC 30 MG/ML 1 ML VIAL IVP PRN ×3 (07:57→21:15)
--- NOTE | 2017-11-26 08:55 | P.GSHP ---
History of Present Illness H&P Date: 11/26/17 22-year-old who presented to the emergency room to be evaluated for a persistent symptomatic right lower quadrant abdominal pain. Patient presented to the emergency room initially on Saturday last week for right lower quadrant abdominal pain. Patient stated that she had a CAT scan of the abdomen without contrast was told it was her ovarian cyst and was discharged from the emergency room. Patient stated that she was followed up in outpatient setting by her primary care doctor on November 25 PCP was concern for appendicitis and sent her back to the emergency room. Patient had persistent right lower quadrant pain nausea vomiting loss of appetite. Patient stated at home she was febrile temp was 100.4. In the emergency room the white count was 10.4. Temp was 100 CAT scan abdomen and pelvis clinical diagnosis of a non-complicated appendicitis. Patient was recommended to undergo a lap appendectomy and has elected to proceed. Past surgical history tonsillectomy. Past medical history none. Current nonsmoker. No alcohol. Does have several [place]ott body piercings to the abdomen and umbilical area patient states they have been in place for 4 years and they are not removable. - Review of Systems Comment: Essentially unremarkable except as mentioned in the present illness Past Medical History Past Medical History: No Reported History History of Any Multi-Drug Resistant Organisms: None Reported Past Surgical History: Tonsillectomy Past Psychological History: No Psychological Hx Reported Smoking Status: Never smoker Past Alcohol Use History: None Reported Past Drug Use History: None Reported - Past Family History Mother Family Medical History: No Reported History Medications and Allergies Home Medications Medication Instructions Recorded Confirmed Type Ranitidine HCl [Zantac] 150 mg PO BID 11/23/17 11/25/17 History Falmina-28 1 tab PO HS 11/25/17 11/25/17 History Allergies Allergy/AdvReac Type Severity Reaction Status Date / Time azithromycin [From Zithromax] Allergy Unknown Verified 11/25/17 15:09 latex Allergy Rash/Hives Verified 11/25/17 15:09 tramadol [From Ultram] Allergy Rash/Hives Verified 11/25/17 15:09 Surgical - Exam Vital Signs Temp Pulse Resp BP Pulse Ox 98.2 F 80 18 133/85 100 11/25/17 14:05 11/25/17 14:05 11/25/17 14:05 11/25/17 14:05 11/25/17 14:05 GENERAL APPEARANCE: 22-year-old female patient is alert, oriented, in no acute distress. Continues to report having right lower quadrant abdominal discomfort worse with activity VITAL SIGNS: Reviewed HEENT: Head is normocephalic and atraumatic. Pupils are equal and reactive. The nares are patent. Oropharynx is clear without lesions. NECK: Supple without lymphadenopathy. Traches midline. HEART: S1, S2. Regular rate and rhythm. No murmur noted LUNGS: No crackles or wheezes are heard. Adequate air movement bilaterally ABDOMEN: Soft, tenderness to the right lower quadrant nondistended with good bowel sounds. No peritoneal signs. No palpable organomegaly or masses. EXTREMITIES: Normal skin color and turgor. No cyanosis, rash, ulceration, clubbing or edema. Radial pedal pulses are 2/4 bilaterally. NEUROLOGICAL: No focal deficits. Strength and sensation are grossly intact. Skin multiple skin tattoos with multiple on back and abdomen body piercing Results - Labs 11/26/17 06:05 11/26/17 06:05 Abnormal Lab Results - Last 24 Hours (Table) 11/25/17 11/26/17 11/26/17 Range/Units 15:10 06:05 06:05 RBC 3.43 L (3.80-5.40) m/uL Hgb 10.5 L (11.4-16.0) gm/dL Hct 31.8 L (34.0-46.0) % BUN 4 L 3 L (7-17) mg/dL Creatinine 0.50 L 0.50 L (0.52-1.04) mg/dL Diabetes panel 11/25/17 11/26/17 Range/Units 15:10 06:05 Sodium 145 143 (137-145) mmol/L Potassium 3.5 3.7 (3.5-5.1) mmol/L Chloride 104 107 (98-107) mmol/L Carbon Dioxide 25 25 (22-30) mmol/L BUN 4 L 3 L (7-17) mg/dL Creatinine 0.50 L 0.50 L (0.52-1.04) mg/dL Glucose 93 79 (74-99) mg/dL Calcium 10.0 8.9 (8.4-10.2) mg/dL AST 15 (14-36) U/L ALT 26 (9-52) U/L Alkaline Phosphatase 44 (38-126) U/L Total Protein 7.1 (6.3-8.2) g/dL Albumin 4.1 (3.5-5.0) g/dL Calcium panel 11/25/17 11/26/17 Range/Units 15:10 06:05 Calcium 10.0 8.9 (8.4-10.2) mg/dL Albumin 4.1 (3.5-5.0) g/dL Pituitary panel 11/25/17 11/26/17 Range/Units 15:10 06:05 Sodium 145 143 (137-145) mmol/L Potassium 3.5 3.7 (3.5-5.1) mmol/L Chloride 104 107 (98-107) mmol/L Carbon Dioxide 25 25 (22-30) mmol/L BUN 4 L 3 L (7-17) mg/dL Creatinine 0.50 L 0.50 L (0.52-1.04) mg/dL Glucose 93 79 (74-99) mg/dL Calcium 10.0 8.9 (8.4-10.2) mg/dL Adrenal panel 11/25/17 11/26/17 Range/Units 15:10 06:05 Sodium 145 143 (137-145) mmol/L Potassium 3.5 3.7 (3.5-5.1) mmol/L Chloride 104 107 (98-107) mmol/L Carbon Dioxide 25 25 (22-30) mmol/L BUN 4 L 3 L (7-17) mg/dL Creatinine 0.50 L 0.50 L (0.52-1.04) mg/dL Glucose 93 79 (74-99) mg/dL Calcium 10.0 8.9 (8.4-10.2) mg/dL Total Bilirubin 0.3 (0.2-1.3) mg/dL AST 15 (14-36) U/L ALT 26 (9-52) U/L Alkaline Phosphatase 44 (38-126) U/L Total Protein 7.1 (6.3-8.2) g/dL Albumin 4.1 (3.5-5.0) g/dL Assessment and Plan Assessment: Impression Present on admission persistent right lower quadrant pain febrile nausea vomiting suspect due to acute appendicitis CAT scan abdomen and pelvis suggestive of an acute non-complicated appendicitis Present on admission Leukocytosis suspect due to acute appendicitis Plan Scheduled today for a lap appendectomy per Dr. barrow Pain control DVT and GI prophylaxis IV fluid for hydration The above impression and plan of care have been discussed and directed by signing physician. Lissette Gibson nurse practitioner acting as scribe for signing physician.
[2017-11-26] MEDS ORDERED: IV FLUID CONTINUATION 1,000 ML IV ONE (09:26)
[2017-11-26] MEDS ORDERED: ONDANSETRON 4 MG/2 ML VIAL IVP ONE (10:00)
[2017-11-26] MEDS ORDERED: fentaNYL (PF) 50 MCG/ML 2 ML AMP IVP ONE (10:02)
[2017-11-26] MEDS ORDERED: LACTATED RINGERS 1,000 ML IV ONE (10:07)
[2017-11-26] MEDS ORDERED: HEPARIN SODIUM,PORCINE 5,000 UNIT/ML 1 ML VIAL SQ ONE (10:25)
[2017-11-26] MEDS ORDERED: MIDAZOLAM 2 MG/2 ML VIAL ONE (10:35)
[2017-11-26] MEDS ORDERED: LIDOCAINE 1% INJ 10MG/ML (20 ML MDV) ONE (10:35)
[2017-11-26] MEDS ORDERED: ROCURONIUM BROMIDE 10 MG/ML 10 ML VIAL IV ONE (10:35)
[2017-11-26] MEDS ORDERED: GLYCOPYRROLATE 0.2 MG/ML 2 ML VIAL ONE (10:35)
[2017-11-26] MEDS ORDERED: KETOROLAC 30 MG/ML 1 ML VIAL ONE (10:35)
[2017-11-26] MEDS ORDERED: ceFAZolin 1,000 MG VIAL ONE (10:35)
[2017-11-26] MEDS ORDERED: NEOSTIGMINE 1 MG/ML 10 ML VIAL ONE (10:35)
[2017-11-26] MEDS ORDERED: fentaNYL (PF) 50 MCG/ML 2 ML AMP ONE (10:35)
[2017-11-26] MEDS ORDERED: PROPOFOL 10 MG/ML 20 ML VIAL IV ONE (10:35)
[2017-11-26] MEDS ORDERED: SUCCINYLCHOLINE CHLORIDE 100 MG/5 ML SYR IV ONE (10:35)
[2017-11-26] MEDS ORDERED: SODIUM CHLORIDE 0.9% 50 ML with ceFAZolin 2,000 MG IV ONE ×2 (11:03)
[2017-11-26] MEDS ORDERED: BUPIVACAINE (PF) 0.5% 30 ML VIAL SQ ONE (11:10)
--- NOTE | 2017-11-26 11:18 | P.OP ---
Date of Procedure: 11/26/17 Preoperative Diagnosis: Acute appendicitis Postoperative Diagnosis: Appendicitis Procedure(s) Performed: Laparoscopic appendectomy Anesthesia: CLOTILDE Surgeon: Joselito Lake Estimated Blood Loss (ml): 5 Pathology: other (Appendix) Condition: stable Disposition: PACU Description of Procedure: HThe patient's placed on the operating table in the supine position. The patient received general anesthesia. The abdomen was prepped and draped in the usual sterile fashion. The skin was anesthetized 1% local Xylocaine at the trocar sites. Using an 11 blade the skin was incised at the umbilicus. The umbilicus was grasped with a Bryant clamp and then a Veress needle was placed into the peritoneal cavity. Position of the Veress needle was confirmed with positive drop test. After adequate insufflation a 5 mm trocar was placed into the peritoneal cavity. The abdomen was further insufflated. And then the laparoscope was placed in the peritoneal cavity. Next a 5 mm trocar was placed in the midline suprapubic position. And then a 10 mm trocar was placed in the midline epigastric position. The patient was rotated with the right side up and in Trendelenburg. The appendix was visualized. The appendix appeared to be inflamed. The appendix was grasped and then using the Harmonic scissors the mesoappendix was divided. A PDS Endoloop was then placed around the base of the appendix. And then the appendix was divided using Harmonic scissors. The appendix was placed into an Endo Catch and brought out through the 10 mm trocar site. The abdomen was irrigated. There is no bleeding seen. The trochars withdrawn. The skin was closed interrupted 3-0 Monocryl suture. Dermabond dressing was applied. Patient was sent to recovery room in stable condition.
[2017-11-26] MEDS ORDERED: MEPERIDINE 50 MG/ML SYRINGE IVP ONE (11:35)
[2017-11-26] MEDS ORDERED: MORPHINE SULFATE 2 MG/ML SYRINGE IVP STA (15:08)
--- NOTE | 2017-11-26 15:09 | P.PN ---
Progress Note - Text Progress Note Date: 11/26/17 Called by nursing to come evaluate the patient for a sudden onset of experiencing sharp stabbing pain to the right abdominal wall. The abdomen is soft surgical dressings dry. Abdomen on the right anterior wall slight puffiness noted patient is crying stating she cannot tolerate the pain nursing reports that they just gave the patient a dose of Toradol as well as morphine 4 mg IV notified the attending who indicated the patient is to receive now 8 mg of morphine evaluate the response the plan of care was discussed with the patient the patient's family and the nurse at the bedside. Another 8 mg of IV morphine and have nursing monitor the response follow-up The above impression and plan of care have been discussed and directed by signing physician. Lissette Gibson nurse practitioner acting as scribe for signing physician.
[2017-11-27] MEDS: KETOROLAC 30 MG/ML 1 ML VIAL IVP PRN ×2 (02:15→20:28)
[2017-11-27] MEDS: MORPHINE SULFATE 2 MG/ML SYRINGE IVP PRN ×5 (03:23→21:58)
[2017-11-27] MEDS: ONDANSETRON 4 MG/2 ML VIAL IVP PRN ×2 (07:18→16:42)
[2017-11-27] MEDS: ACETAMINOPHEN TAB 325 MG TAB PO PRN (07:35)
[2017-11-27] MEDS ORDERED: SODIUM CHLORIDE 0.9% 1,000 ML IV ONE (07:35)
[2017-11-27] MEDS ORDERED: RX INFO: IV CONTRAST WAS GIVEN 1 EACH MISC MISCELLANE PRN (07:56)
[2017-11-27 08:06] LABS: Basophils % (A) 0 %; Eosinophils % (A) 0 %; HCT 31.9 % (34.0-46.0); HGB 10.2 gm/dL (11.4-16.0); Lymphocytes # (A) 1.2 k/uL (1.0-4.8); Lymphocytes % (A) 12 %; MCH 29.7 pg (25.0-35.0); MCHC 32.1 g/dL (31.0-37.0); MCV 92.6 fL (80.0-100.0); Mean Platelet Volume 7.1; Monocytes # (A) 0.4 k/uL (0-1.0); Monocytes % (A) 4 %; Neutrophils # (A) 8.8 k/uL (1.3-7.7); Neutrophils % (A) 83 %; Platelet Count 215 k/uL (150-450); RBC 3.45 m/uL (3.80-5.40); RDW 13.4 % (11.5-15.5); WBC 10.6 k/uL (3.8-10.6)
[2017-11-27] MEDS ORDERED: PIPERACILLIN-TAZOBACTAM 3.375 GM in DEXTROSE/WATER 1 50ML.BAG IVPB SCH (08:30)
[2017-11-27] MEDS: IOPAMIDOL-300 CONTRAST 30 ML VIAL (ORAL USE) PO PRN ×2 (08:31→09:35)
--- NOTE | 2017-11-27 08:33 | P.PN ---
Subjective Progress Note Date: 11/27/17 22-year-old seen and examined this morning. Patient is teary-eyed crying stating the pain is unbearable "sharp stabbing pain across the lower abdomen can 't touch the right lower side causes pain. Nursing reports patient has been experiencing pain discomfort throughout the night requiring IV pain medication. Patient currently had received 4 mg of morphine at 7:30 with Zofran for nausea and Toradol given at 2:30. Abdomen soft not distended positive tenderness to the right lower quadrant surgical dressing site dry up to the bathroom urinating no difficulty states not passing gas not belching no stool temp this morning 100.8 white count 10.6 Postop November 26 laparoscopic appendectomy for acute appendicitis Objective - Vital Signs Vital signs: Vital Signs Temp 100.8 F H 11/27/17 07:29 Pulse 110 H 11/27/17 07:29 Resp 22 11/27/17 07:29 BP 109/69 11/27/17 07:29 Pulse Ox 99 11/27/17 07:29 Intake & Output 11/26/17 11/27/17 11/27/17 18:59 06:59 18:59 Intake Total 1100 1000 Output Total 5 Balance 1095 1000 Intake: IV 1100 Oral 1000 Output: Estimated Blood Loss 5 Other: # Voids 1 1 - Exam Physical exam 22-year-old female up to the bathroom urinating no difficulty teary-eyed reports having "intense pain in the right lower abdomen tender to the touch" Lungs adequate air movement bilaterally on room air sats are 99% Heart S1-S2 audible heart rate 110 no murmur noted Abdomen surgical dressing sites dry tenderness to the right lower quadrant few hypoactive bowel tones states not passing gas no stool in urinating no difficulty no nausea no vomiting Extremities no edema - Labs CBC & Chem 7: 11/27/17 07:46 11/26/17 06:05 Labs: Abnormal Lab Results - Last 24 Hours (Table) 11/27/17 Range/Units 07:46 RBC 3.45 L (3.80-5.40) m/uL Hgb 10.2 L (11.4-16.0) gm/dL Hct 31.9 L (34.0-46.0) % Neutrophils # 8.8 H (1.3-7.7) k/uL Assessment and Plan Assessment: Impression Present on admission persistent right lower quadrant pain febrile nausea vomiting suspect due to acute appendicitis CAT scan abdomen and pelvis suggestive of an acute non-complicated appendicitis Present on admission Leukocytosis suspect due to acute appendicitis Postop laparoscopic appendectomy for acute appendicitis Postop febrile leukocytosis tachycardia unclear etiology Plan IV fluid bolus now Computed tomography scan abdomen pelvis follow up on results CBC and a CMP now Blood and urine culture IV Zosyn as ordered Pain control DVT and GI prophylaxis IV fluid for hydration Further recommendations pending The above impression and plan of care have been discussed and directed by signing physician. Lissette Gibson nurse practitioner acting as scribe for signing physician.
[2017-11-27] MEDS ORDERED: HYDROmorphone 0.5 MG/0.5 ML SYRINGE IVP PRN (08:57)
[2017-11-27 10:03] LABS: Appearance,Urine Clear (Clear); Bilirubin,Urine Negative (Negative); Blood,Urine Negative (Negative); Color,Urine Light Yellow; Glucose,Urine (UA) Negative (Negative); Ketones,Urine 2+ (Negative); Leukocyte Esterase,Urine Negative (Negative); Nitrite,Urine Negative (Negative); PH, Urine 6.5 (5.0-8.0); Protein,Urine Negative (Negative); Specific Gravity,Urine 1.003 (1.001-1.035); Urobilinogen,Urine <2.0 mg/dL (<2.0)
--- NOTE | 2017-11-27 11:01 | CT ---
EXAMINATION TYPE: CT ChestAbdPelvis w con DATE OF EXAM: 11/27/2017 COMPARISON: NONE HISTORY: Fever, S/P Appendicitis CT DLP: 1196 mGycm. Automated Exposure Control for Dose Reduction was Utilized. CONTRAST: CT scan of the thorax, abdomen and pelvis is performed with IV Contrast, patient injected with 100 ml mL of Isovue 300. FINDINGS: LUNGS: There are trace pleural effusions and minimal bibasilar subsegmental atelectasis. The lungs ar e grossly clear, there is no concerning parenchymal mass or nodule identified. There is no pleural effusion or pneumothorax seen. The tracheobronchial tree is patent. MEDIASTINUM: There are no greater than 1 cm hilar or mediastinal lymph nodes. No pericardial effusi on is seen. LIVER/GB: There is minimal periportal edema. Vicarious excretion of contrast or biliary sludge is not ed dependently within the gallbladder. PANCREAS: No significant abnormality is seen. No ductal dilatation. SPLEEN: No significant abnormality is seen. No splenomegaly. ADRENALS: No significant abnormality is seen. KIDNEYS: No significant abnormality is seen. BOWEL: No dilated bowel to suggest obstruction or reactive ileus. Bowel thickening of the sigmoid co jane is likely reactive to the adjacent postoperative inflammatory change and fluid. GENITAL ORGANS: No gross abnormality seen. LYMPH NODES: No greater than 1cm abdominal or pelvic lymph nodes are appreciated. Few prominent but n onenlarged mesenteric lymph nodes are likely reactive. OSSEOUS STRUCTURES: No significant abnormality is seen. OTHER: A small amount of pneumoperitoneum is seen, likely postoperative in nature. Free fluid and gen eralized fat stranding of the pelvis are also present and likely reactive. No focal fluid collection is seen. IMPRESSION: 1. Small amount of pneumoperitoneum, likely postoperative as well as free fluid and mild inflammatory change of the generalized low pelvis also likely reactive and postoperative. No focal fluid collecti on to suggest abscess. 2. Mild periportal edema and trace pleural effusions suggest volume overload. 3. Minimal thickening of the sigmoid colon is likely reactive to the adjacent inflammatory change.
[2017-11-27] MEDS ORDERED: ONDANSETRON 4 MG/2 ML VIAL IVP STA (11:02)
[2017-11-27] MEDS: SODIUM CHLORIDE 0.9% 1,000 ML IV SCH ×3 (14:09→23:17)
[2017-11-27] MEDS: PANTOPRAZOLE 40 MG/10 ML VIAL IVP SCH (14:09)
[2017-11-27] MEDS ORDERED: LORazepam 2 MG/ML INJ IV PRN (14:41)
[2017-11-27] MEDS ORDERED: metroNIDAZOLE-NS PMX 500 MG in SALINE 1 100ML.BAG IVPB SCH (16:00)
[2017-11-28] MEDS: MORPHINE SULFATE 2 MG/ML SYRINGE IVP PRN ×2 (04:49→09:48)
[2017-11-28] MEDS: ONDANSETRON 4 MG/2 ML VIAL IVP PRN ×5 (05:01→22:05)
[2017-11-28] MEDS: ACETAMINOPHEN TAB 325 MG TAB PO PRN (05:02)
[2017-11-28] MEDS: KETOROLAC 30 MG/ML 1 ML VIAL IVP PRN ×3 (06:57→22:04)
[2017-11-28 07:06] LABS: Basophils % (A) 0 %; Eosinophils % (A) 0 %; HCT 29.2 % (34.0-46.0); HGB 9.6 gm/dL (11.4-16.0); Lymphocytes # (A) 1.3 k/uL (1.0-4.8); Lymphocytes % (A) 12 %; MCH 30.4 pg (25.0-35.0); MCV 92.1 fL (80.0-100.0); Mean Platelet Volume 6.9; Monocytes # (A) 0.5 k/uL (0-1.0); Monocytes % (A) 5 %; Neutrophils # (A) 9.2 k/uL (1.3-7.7); Neutrophils % (A) 81 %; Platelet Count 236 k/uL (150-450); RBC 3.17 m/uL (3.80-5.40); RDW 13.3 % (11.5-15.5); WBC 11.3 k/uL (3.8-10.6)
[2017-11-28 07:24] LABS: ALT 28 U/L (9-52); AST 10 U/L (14-36); Albumin 2.7 g/dL (3.5-5.0); Alkaline Phosphatase 39 U/L (38-126); Anion Gap 9 mmol/L; Blood Urea Nitrogen 2 mg/dL (7-17); Calcium 8.5 mg/dL (8.4-10.2); Carbon Dioxide 25 mmol/L (22-30); Chloride 107 mmol/L (98-107); Glucose 106 mg/dL (74-99); Potassium 3.3 mmol/L (3.5-5.1); Sodium 141 mmol/L (137-145); Total Bilirubin 0.2 mg/dL (0.2-1.3); Total Protein 5.1 g/dL (6.3-8.2)
[2017-11-28] MEDS: PANTOPRAZOLE 40 MG/10 ML VIAL IVP SCH (09:48)
[2017-11-28] MEDS: POTASSIUM CHLORIDE ER 20 MEQ TAB.ER PO SCH ×2 (09:48→11:04)
[2017-11-28] MEDS: SODIUM CHLORIDE 0.9% 1,000 ML IV SCH ×3 (10:12→22:04)
[2017-11-28] MEDS ORDERED: metroNIDAZOLE-NS PMX 500 MG in SALINE 1 100ML.BAG IVPB SCH (10:30)
[2017-11-28] MEDS ORDERED: PIPERACILLIN-TAZOBACTAM 3.375 GM in DEXTROSE/WATER 1 50ML.BAG IVPB SCH (10:30)
--- NOTE | 2017-11-28 10:33 | P.PN ---
Subjective Progress Note Date: 11/28/17 22-year-old female seen and examined. Patient reports that she does have an anxiety disorder was taking Xanax by her primary care provider at home but there been no refills on Xanax since September. Currently is resting in bed abdomen is slightly distended few hypoactive bowel tones patient states she developed hipcups last evening caused increased abdominal pain. Patient states urinating no burning on urination states not passing gas no stool white count this morning 11.3 hemoglobin 9.6 potassium 3.3 patient has just received Ativan 1 mg IV with 8 mg of morphine IV this morning surgical incision sites no redness no drainage abdomen soft temp this morning 100.4 at 6 AM current 98 CAT scan abdomen pelvis with contrast done yesterday no dilated bowel to suggest obstruction no reactive ileus bowel thickening of the sigmoid likely reactive small amount of pneumoperitoneum as well as free air likely reactive postoperative changes Objective - Vital Signs Vital signs: Vital Signs Temp 98.5 F 11/28/17 07:39 Pulse 110 H 11/28/17 07:39 Resp 16 11/28/17 07:39 BP 96/57 11/28/17 07:39 Pulse Ox 98 11/28/17 07:39 Intake & Output 11/27/17 11/28/17 11/28/17 18:59 06:59 18:59 Output Total 800 80 Balance -800 -80 Output: Urine 80 Emesis 800 Other: Voiding Method Toilet # Voids 1 # Bowel Movements 1 - Exam Physical exam 22-year-old female resting in bed no new events Lungs adequate air movement bilaterally on room air sats are 99% Heart S1-S2 audible heart rate 110 no murmur noted Abdomen surgical dressing sites dry tenderness to the right lower quadrant slightly distended bilateral few hypoactive bowel tones states not passing gas no stool urinating no difficulty no nausea no vomiting Extremities no edema - Labs CBC & Chem 7: 11/28/17 06:48 11/28/17 06:48 Labs: Abnormal Lab Results - Last 24 Hours (Table) 11/27/17 11/27/17 11/28/17 Range/Units 07:46 09:28 06:48 WBC 11.3 H (3.8-10.6) k/uL RBC 3.17 L (3.80-5.40) m/uL Hgb 9.6 L (11.4-16.0) gm/dL Hct 29.2 L (34.0-46.0) % Neutrophils # 9.2 H (1.3-7.7) k/uL Potassium (3.5-5.1) mmol/L BUN (7-17) mg/dL Glucose (74-99) mg/dL Plasma Lactic Acid Jefry <0.5 L (0.7-2.0) mmol/L AST (14-36) U/L Total Protein (6.3-8.2) g/dL Albumin (3.5-5.0) g/dL Urine Ketones 2+ H (Negative) 11/28/17 Range/Units 06:48 WBC (3.8-10.6) k/uL RBC (3.80-5.40) m/uL Hgb (11.4-16.0) gm/dL Hct (34.0-46.0) % Neutrophils # (1.3-7.7) k/uL Potassium 3.3 L (3.5-5.1) mmol/L BUN 2 L (7-17) mg/dL Glucose 106 H (74-99) mg/dL Plasma Lactic Acid Jefry (0.7-2.0) mmol/L AST 10 L (14-36) U/L Total Protein 5.1 L (6.3-8.2) g/dL Albumin 2.7 L (3.5-5.0) g/dL Urine Ketones (Negative) Microbiology - Last 24 Hours (Table) 11/27/17 09:28 Urine Culture - Preliminary Urine,Clean Catch Assessment and Plan Assessment: Impression Present on admission persistent right lower quadrant pain febrile nausea vomiting suspect due to acute appendicitis CAT scan abdomen and pelvis suggestive of an acute non-complicated appendicitis Present on admission Leukocytosis suspect due to acute appendicitis Postop laparoscopic appendectomy for acute appendicitis Postop febrile leukocytosis tachycardia unclear etiology Anxiety disorder nonspecified Anemia suspect due to delusional received fluid bolus postop Plan child welfare caseworker to eval for anxiety issues referral for counseling patient request Increase activity Xanax .25mg bid for anxiety when necessary IV Zosyn and Flagyl as ordered Pain control DVT and GI prophylaxis IV fluid for hydration Further recommendations pending Repeat labs in the morning The above impression and plan of care have been discussed and directed by signing physician. Lissette Gibson nurse practitioner acting as scribe for signing physician.
[2017-11-28] MEDS ORDERED: ONDANSETRON 4 MG TAB PO PRN (12:41)
[2017-11-28] MEDS: HYDROcodone/APAP 5-325MG 1 EACH TAB PO PRN ×2 (15:45→20:17)
[2017-11-28] MEDS: ALPRAZolam 0.25 MG TAB PO PRN (15:47)
--- NOTE | 2017-11-28 19:17 | CONS ---
CONSULTATION DATE OF CONSULTATION: 11/28/2017 REASON FOR CONSULTATION: Medical management requested by Dr. Lake. CONSULTATION: This is a pleasant 22-year-old who follows with Dr. Leslie. The patient has an unremarkable past medical history. Patient initially presented to the hospital on 11/25/17. Prior to that, patient was having at home right-sided abdominal pain, some nausea, some low-grade fever, and she felt she may have had the beginning of a urinary tract infection with burning in the urine. She went and took [id number] Azo, and actually symptoms improved, but the patient continued to have increasing lower abdominal pain. She was brought down to the ER. CT scan of the abdomen was suggestive of appendicitis, and the patient was taken to the operating room by Dr. Lake the following morning. Following that the patient continued to have increasing abdominal pain and actually had low-grade fever and became rather bloated. Patient was put on IV antibiotics. Patient did have a good amount of loose stool yesterday and flatus and abdomen feels less distended. Patient normally has a BM once or twice a week. Patient does not remember eating anything untowards, except they do eat at [employer], and she and her boyfriend had eaten there. Patient is still having some right lower quadrant pain, some nausea, and patient has been drinking some water. Patient's menstruation is regulated because of control pills. Denies any vaginal discharge. REVIEW OF SYSTEMS: CONSTITUTIONAL: Low-grade fever. HEENT: None. RESPIRATORY: None. CARDIOVASCULAR: None. GASTROINTESTINAL: As above. GENITOURINARY: As above. MUSCULOSKELETAL: None. DERMATOLOGICAL: None. HEMATOLOGICAL: None. LYMPHATICS: None. PSYCHIATRY: None. NEUROLOGICAL: None. PAST MEDICAL HISTORY: None. PAST SURGICAL HISTORY: None. SOCIAL HISTORY: Lives with her boyfriend. Denies smoking, alcohol. No use of recreational drugs. Patient is employed. FAMILY HISTORY: Reviewed; noncontributory to presentation. HOME MEDICATIONS: 1. Zantac 150 mg p.o. b.i.d. 2. Falmina 28 one tablet p.o. at bedtime. ALLERGIES: 1. ZITHROMAX. 2. LATEX. 3. ULTRAM. PHYSICAL EXAMINATION: Temperature this morning was 101.3, pulse 126, respiration 18, blood pressure 111/53, pulse ox 96% on room air. GENERAL APPEARANCE: Average build. Lying in bed, somewhat uncomfortable-appearing. EYES: Pupils equal. Conjunctivae normal. HEENT: External appearance of nose and ears normal. Oral cavity normal. NECK: JVD not raised. Mass not palpable. RESPIRATORY: Effort normal. Lungs are clear. CARDIOVASCULAR: First and second sounds normal. No edema. ABDOMEN: Minimally distended. Patient has some metal studs. Right lower abdominal tenderness. No guarding or rigidity. LYMPHATIC: No lymph node palpable in neck or axillae. PSYCHIATRY: Alert and oriented x3. Mood and affect normal. NEUROLOGICAL: Pupils equal.. Cranial nerves grossly intact. Power and sensation grossly intact. INVESTIGATIONS: White count 11.3, hemoglobin 9.6, potassium 3.3, BUN 2, creatinine 0.52. UA positive for 2+ ketones. CT scan of the abdomen and pelvis shows some atelectasis, very small amount of pneumoperitoneum and some non-specific findings. ASSESSMENT: This is a patient who presents with increasing abdominal pain for last 3 days, some nausea, vomiting. Has a fever and some tachycardia. Patient did undergo laparoscopic appendectomy, but symptoms still persisted. Patient did have urinary symptoms at the beginning, which now resolved; could be from a partially treated UTI/early pyelonephritis. Low-grade colitis is in the differential. PLAN: Will keep the patient on IV fluids. Will stop patient's Flagyl, keep the patient on IV Zosyn, see how she does. The patient's blood cultures are pending. Diet being advanced as per Surgery. Care was discussed with the patient and her mother at the bedside. Questions were answered. Thank you, Dr. Lake. MMODL / IJN: [id number] /
[2017-11-28] MEDS: PIPERACILLIN-TAZOBACTAM 3.375 GM in DEXTROSE/WATER 1 50ML.BAG IVPB SCH (20:16)
[2017-11-29] MEDS: HYDROcodone/APAP 5-325MG 1 EACH TAB PO PRN ×3 (00:15→11:18)
[2017-11-29] MEDS: ALPRAZolam 0.25 MG TAB PO PRN ×2 (00:39→11:19)
[2017-11-29] MEDS: KETOROLAC 30 MG/ML 1 ML VIAL IVP PRN ×2 (04:18→11:20)
[2017-11-29] MEDS: PIPERACILLIN-TAZOBACTAM 3.375 GM in DEXTROSE/WATER 1 50ML.BAG IVPB SCH ×3 (04:18→19:58)
[2017-11-29] MEDS: PANTOPRAZOLE 40 MG TABLET PO SCH (06:58)
[2017-11-29 07:02] LABS: Basophils % (A) 0 %; Eosinophils # (A) 0.2 k/uL (0-0.7); Eosinophils % (A) 2 %; HCT 27.7 % (34.0-46.0); Lymphocytes # (A) 1.6 k/uL (1.0-4.8); Lymphocytes % (A) 17 %; MCH 30.2 pg (25.0-35.0); MCHC 32.7 g/dL (31.0-37.0); MCV 92.5 fL (80.0-100.0); Mean Platelet Volume 7.1; Monocytes # (A) 0.5 k/uL (0-1.0); Monocytes % (A) 5 %; Neutrophils # (A) 7.1 k/uL (1.3-7.7); Neutrophils % (A) 74 %; Platelet Count 255 k/uL (150-450); RBC 2.99 m/uL (3.80-5.40); RDW 13.3 % (11.5-15.5); WBC 9.5 k/uL (3.8-10.6)
[2017-11-29] MEDS: ONDANSETRON 4 MG/2 ML VIAL IVP PRN ×3 (07:16→14:58)
[2017-11-29 07:22] LABS: ALT 29 U/L (9-52); AST 12 U/L (14-36); Albumin 2.7 g/dL (3.5-5.0); Alkaline Phosphatase 42 U/L (38-126); Anion Gap 10 mmol/L; Blood Urea Nitrogen 2 mg/dL (7-17); Calcium 8.5 mg/dL (8.4-10.2); Carbon Dioxide 25 mmol/L (22-30); Chloride 109 mmol/L (98-107); Glucose 89 mg/dL (74-99); Potassium 3.5 mmol/L (3.5-5.1); Sodium 144 mmol/L (137-145); Total Bilirubin 0.3 mg/dL (0.2-1.3); Total Protein 4.9 g/dL (6.3-8.2)
[2017-11-29] MEDS ORDERED: FLUCONAZOLE 100 MG TAB PO ONE (08:02)
--- NOTE | 2017-11-29 10:44 | P.DS ---
Providers Date of admission: 11/25/17 19:46 Expected date of discharge: 11/29/17 Attending physician: Joselito Barrow Consults: 11/28/17 07:58 Consult Physician Urgent Consulting Provider: Trevor Gunter Consult Reason/Comments: med mtg Do you want consulting provider notified?: Yes Primary care physician: [facility] Hospital Course: 22-year-old female presented on the day of admission to the emergency room to be evaluated for right lower quadrant abdominal pain. Patient was seen in the emergency room with similar complaints had a normal workup and was discharged home at that time. Patient was seen by her primary care physician for continued persistent right lower quadrant pain. The primary care provider recommended that the patient come to the emergency room to be reevaluated. Patient was recently seen in the emergency room on the day of admission to be evaluated for right lower quadrant pain with nausea and vomiting poor oral intake with constipation. Patient stated that she was febrile at home with a temp of 100.4. In the emergency room temp is 98.2. The white count 10.4 patient had a CAT scan of the abdomen pelvis it indicated non-complicated appendicitis. Patient was recommended to undergo a lap appendectomy and the patient elected to proceed. Which was done on November 26. Postprocedure patient continued to have abdominal discomfort low-grade temp stated that she felt bloated. Was requiring IV morphine and IV Ativan repeat CAT scan postprocedure done on November 27 showed small amount of pneumoperitoneum likely postop as well as free fluid mild inflammatory changes likely reactive and postoperative. There were no acute findings. Patient did admit to having an anxiety disorder had been on Xanax at home she stated last Xanax was in September. On the day of discharge patient was up ambulatory on the unit tolerating a diet urine and blood cultures were negative white count was 9.5 patient was felt to be hemodynamically stable and appropriate to proceed with a discharge to home Impression Present on admission persistent right lower quadrant pain febrile nausea vomiting suspect due to acute appendicitis CAT scan abdomen and pelvis suggestive of an acute non-complicated appendicitis Present on admission Leukocytosis suspect due to acute appendicitis Postop laparoscopic appendectomy for acute appendicitis Postop febrile leukocytosis tachycardia unclear etiology Anxiety disorder nonspecified Anemia suspect due to dilutional after received fluid bolus postop The above impression and plan of care have been discussed and directed by signing physician. Lissette Gibson nurse practitioner acting as scribe for signing physician. Patient Condition at Discharge: Good Plan - Discharge Summary New Discharge Prescriptions: New Acetaminophen with Codeine [Tylenol w/codeine #3] 1 tab PO Q6H PRN 3 Days # 12 tab PRN Reason: Moderate Pain Ondansetron [Zofran] 4 mg PO Q8HR PRN #6 tab PRN Reason: Mild Nausea And/Or Anxiety Continue Ranitidine HCl [Zantac] 150 mg PO BID Falmina-28 1 tab PO HS Discharge Medication List Ranitidine HCl [Zantac] 150 mg PO BID 11/23/17 [History] Falmina-28 1 tab PO HS 11/25/17 [History] Acetaminophen with Codeine [Tylenol w/codeine #3] 1 tab PO Q6H PRN 3 Days #12 tab 11/29/17 [Rx] Ondansetron [Zofran] 4 mg PO Q8HR PRN #6 tab 11/29/17 [Rx] Follow up Appointment(s)/Referral(s): Byron Leslie MD [Primary Care Provider] - 12/05/17 10:45 am Joselito Barrow MD [STAFF PHYSICIAN] - 12/05/17 3:00 pm Activity/Diet/Wound Care/Special Instructions: No tub bath for six weeks. Shower daily. No lifting over 10 pounds for the next 6 weeks. Do not remove the plastic dressings from surgical site until seen in the follow- up office visit with dr barrow May use ice packs to surgical site. No driving while taking narcotic for pain. May return to work when seen in the follow-up office visit with Dr. barrow Discharge Disposition: HOME SELF-CARE
[2017-11-29] MEDS ORDERED: SCOPOLAMINE 1.5MG/72HR PATCH TRANSDERM SCH (12:00)
[2017-11-29] MEDS ORDERED: METOCLOPRAMIDE 5 MG/ML 2 ML VIAL IVP SCH (12:00)
--- NOTE | 2017-11-29 18:24 | PN ---
PROGRESS NOTE DATE OF SERVICE: 11/29/2017 PRESENTING COMPLAINT: Nausea. INTERVAL HISTORY: This patient who presented initially with abdominal pain did undergo appendectomy. I did discuss with Dr. Lake; it did not look too bad. Patient was put on a soft diet. The patient had been on antibiotics, IV Zosyn. Patient did walk a bit this morning; initially she was to be discharged, then patient did throw up once. Patient had received Xanax earlier and also received [place] earlier. Patient's mother and boyfriend were in the room. Patient had tried some yogurt earlier and some crackers. REVIEW OF SYSTEMS: Done for constitutional, cardiovascular, GI, pulmonary; relevant findings as above. Patient's abdomen is much less distended. Did have a bowel movement yesterday. CURRENT MEDICATIONS: Current medications included: 1. Xanax. 2. [place]. 3. Toradol. 4. Reglan. 5. Zofran. 6. Protonix. 7. IV Zosyn. 8. Scopolamine patch. 9. Normal saline. PHYSICAL EXAMINATION: Temperature 97.4, pulse 86, respiration 18, blood pressure 107/66, pulse ox 98% on room air. GENERAL APPEARANCE: Lying in bed, comfortable. Patient had to be woken up. EYES: Pupils equal. Conjunctivae normal. HEENT: External appearance of nose and ears normal. Oral cavity normal. NECK: JVD not raised. Mass not palpable. RESPIRATORY: Effort normal. Lungs are clear. CARDIOVASCULAR: First and second sounds normal. No edema. ABDOMEN: Soft, minimally tender. No guarding or rigidity. PSYCHIATRY: Alert and oriented x3. Mood and affect slightly anxious. INVESTIGATIONS: White count 9.5, hemoglobin 9, potassium 3.5, BUN 2, creatinine 0.5. Patient's UA from yesterday only showed 2+ ketone. ASSESSMENT: 1. Patient has been nauseated today. This could well have been from patient getting [place]. Toradol could be causing that. 2. Weak and tired from decreased oral intake. 3. Gastroesophageal reflux disease. Patient is already on Protonix. 4. Hyperchloremia. Chloride is 109. PLAN: Will switch patient's normal saline to lactated Ringer's. Will discontinue patient's Xanax and [place]; this will contribute to being more lethargic. [place] itself will give her more nausea. Will also stop the Toradol. Will also stop the Reglan, as patient is already on a scopolamine patch, and wish to hold off the Zofran. GI was consulted earlier today. Empirically we will keep the patient on Zosyn, though patient has no white count, no fever, and leave the scopolamine patch on. I had a lengthy talk with the patient's mother and boyfriend; would like the patient to take a shower and then to ambulate the patient, and again add soft foods like yogurt, mashed potatoes, maybe toast, butter and tea. That will help patient feel stronger and feel better. Patient's examination is otherwise rather benign-appearing. Patient could be simply having a side effect of all these medications for pain control. If any, patient should use ice pack, heating pad and Tylenol if needed. Patient does not seem to be excited by my plan, but I think this is in the best interest of the patient. I did explain this to her mother and boyfriend and my reasoning for the same. Thank you, Dr. Lake. DENISE / ALEX: [id number] /
[2017-11-29] MEDS: ACETAMINOPHEN TAB 325 MG TAB PO PRN ×2 (19:41→19:47)
[2017-11-29] MEDS: LACTATED RINGERS 1,000 ML IV SCH (19:57)
[2017-11-29] MEDS ORDERED: ONDANSETRON 4 MG/2 ML VIAL IVP PRN (20:57)
[2017-11-30] MEDS: Acetaminophen-Codeine 300-30mg TAB PO PRN ×2 (00:27→07:00)
[2017-11-30] MEDS: LACTATED RINGERS 1,000 ML IV SCH (04:10)
[2017-11-30] MEDS: PIPERACILLIN-TAZOBACTAM 3.375 GM in DEXTROSE/WATER 1 50ML.BAG IVPB SCH (04:11)
[2017-11-30] MEDS: PANTOPRAZOLE 40 MG TABLET PO SCH (07:02)
[2017-11-30 09:04] VITALS: BP 109/68; PULSE 89; RESP 20; TEMP 98.3
--- NOTE | 2017-12-01 11:02 | CONS ---
CONSULTATION DATE OF SERVICE: 11/30/17 REQUESTING PHYSICIAN: Dr. Gunter. HISTORY OF PRESENT ILLNESS: The patient is a 22-year-old white female who presents to the hospital with right lower quadrant abdominal pain and subsequently diagnosed with appendicitis and underwent appendectomy by Dr. Lake. She had a CT of the abdomen and pelvis done in the ER that showed evidence of acute appendicitis. Surgery went uneventful. Following the surgery, the patient continued to complain of abdominal pain mostly in the right upper quadrant area, extreme nausea with no emesis. The pain continued to progressively get worse. She started having some loose bowel movements and hence we are consulted in regards to this issue. This morning the patient states that she is feeling a little bit better. She had some clear liquids for breakfast, tolerating well. The pain is mostly in the upper abdominal area. Patient states that she has been having digestive upset on and off for the last 3 years duration. She has abdominal bloating, abdominal discomfort, alternating diarrhea and constipation of several years duration. Since being in the hospital, her symptoms have been progressively getting worse. She denies any fever, chills, night sweats. PAST MEDICAL HISTORY: The past medical history unremarkable. PAST SURGICAL HISTORY: Unremarkable other than appendectomy 3 days ago. SOCIAL HISTORY: No smoking or alcohol use. FAMILY HISTORY: Unremarkable. MEDICATIONS: At home, Zantac, and control pills. ALLERGIES: TO ZITHROMAX, LATEX, ULTRAM. FAMILY HISTORY: Family history unremarkable. REVIEW OF SYSTEMS: Cardiopulmonary: No chest pain, shortness of breath. Genitourinary: No dysuria or hematuria. Musculoskeletal: Unremarkable. Skin unremarkable. Endocrine unremarkable. Psychiatric unremarkable. Neurology unremarkable. ENT vision unremarkable. Constitutional: No recent weight loss. No fever, chills or night sweats. PHYSICAL EXAMINATION: Blood pressure 116/68, pulse rate 90, temperature 98.4. HEENT examination unremarkable. Conjunctivae pink. Sclerae anicteric. Oral cavity no lesions. Neck no jugular venous distention or lymph node enlargement. Chest was clear to auscultation. HEART: Regular rate and rhythm. ABDOMEN: Soft. There was mild tenderness in the epigastric and right upper quadrant area, right lower quadrant area was benign. Extremities: No pedal edema. Skin no rashes. NEUROLOGIC: Alert and oriented x3. No focal deficits. LABS: Done today, CBC with differential count is within normal limits and CMP is normal. IMPRESSION: 1. This is a patient who presents to the hospital with right upper quadrant abdominal pain and CT scan showed evidence of acute appendicitis status post laparoscopic appendectomy by Dr. Lake 3 days ago and patient did well. 2. Postoperative nausea and vague abdominal discomfort and abdominal bloating, which has been progressively getting worse for the last 3 days. Clinically, the patient appears stable. Labs normal. RECOMMENDATION: 1. Encourage the patient to increase her oral intake. 2. Continue with Zantac as needed. 3. Antiemetics as needed. 4. Increase ambulation. 5. If she is able to keep her food down by lunch, she can be discharged home today with an outpatient follow up in 3-4 weeks. Thank you for this consultation. DENISE / ALEX: [id number] /
== END 2017-11-30 11:25 | disposition home or self-care (01) ==
LOC: EC 14:04 → 6PED 19:46
PROVIDERS: ADMIT Surgery; ATTEND Surgery
DX: R10.31 Right lower quadrant pain (principal); R50.9 Fever, unspecified; R11.2 Nausea with vomiting, unspecified; K35.80 Unspecified acute appendicitis; K59.00 Constipation, unspecified; K66.8 Other specified disorders of peritoneum; F41.9 Anxiety disorder, unspecified; G89.18 Other acute postprocedural pain; R50.82 Postprocedural fever; D72.829 Elevated white blood cell count, unspecified; R00.0 Tachycardia, unspecified; K21.9 Gastro-esophageal reflux disease without esophagitis; E87.8 Other disorders of electrolyte and fluid balance, not elsewhere classified; R06.6 Hiccough; D64.9 Anemia, unspecified; Z79.3 Long term (current) use of hormonal contraceptives; Z79.899 Other long term (current) drug therapy; Z91.040 Latex allergy status; Z88.1 Allergy status to other antibiotic agents; Z88.5 Allergy status to narcotic agent
CPT/HCPCS: 99285 ×2; 96365 ×2; 96375 ×5; 96361 ×2; 44970; 96376 ×2; 36415; 81025; 88304; 80053 ×3; 80048; 83605; 83690 ×2; 85025 ×5; 81003 ×2; 84703; 87040; 87086; 71260; 74177 ×2; G0378 ×6; J2250; J2060; J1644; J2710; J2765; J2175; J2405 ×5; J0690 ×2; J2001; J0696; J3010; J1885 ×5; J2270 ×4; J2543 ×4; J0330; J2704; C9113; J1170; Q9967 ×2

== ENCOUNTER 2017-12-03 18:13 | Inpatient (IN) | payer OTHER, BC ==
[2017-12-03 17:38] LABS: Basophils % (A) 1 %; Eosinophils # (A) 0.1 k/uL (0-0.7); Eosinophils % (A) 2 %; HCT 36.9 % (34.0-46.0); Lymphocytes # (A) 2.3 k/uL (1.0-4.8); Lymphocytes % (A) 29 %; MCH 30.3 pg (25.0-35.0); MCHC 32.5 g/dL (31.0-37.0); MCV 93.3 fL (80.0-100.0); Mean Platelet Volume 6.4; Monocytes # (A) 0.4 k/uL (0-1.0); Monocytes % (A) 5 %; Neutrophils # (A) 5.1 k/uL (1.3-7.7); Neutrophils % (A) 63 %; RBC 3.95 m/uL (3.80-5.40); RDW 13.8 % (11.5-15.5); WBC 8.1 k/uL (3.8-10.6)
[2017-12-03 17:40] LABS: Platelet Count 537 k/uL (150-450)
[2017-12-03 17:55] LABS: ALT 165 U/L (9-52); AST 152 U/L (14-36); Albumin 4.3 g/dL (3.5-5.0); Alkaline Phosphatase 57 U/L (38-126); Anion Gap 16 mmol/L; Blood Urea Nitrogen 3 mg/dL (7-17); Calcium 9.8 mg/dL (8.4-10.2); Carbon Dioxide 28 mmol/L (22-30); Chloride 101 mmol/L (98-107); Glucose 91 mg/dL (74-99); Potassium 3.8 mmol/L (3.5-5.1); Sodium 145 mmol/L (137-145); Total Bilirubin 0.3 mg/dL (0.2-1.3); Total Protein 7.6 g/dL (6.3-8.2)
--- NOTE | 2017-12-03 18:05 | CT ---
EXAMINATION TYPE: CT abdomen pelvis w con DATE OF EXAM: 12/03/2017 COMPARISON: 11/27/2017 HISTORY: Right sided abdominal pain and distention post appendectomy. CT DLP: 893 mGycm Automated exposure control for dose reduction was used. TECHNIQUE: Helical acquisition of images was performed from the lung bases through the pelvis. CONTRAST: Performed without Oral Contrast and with IV Contrast, patient injected with 100ml mL of Isovue 300. FINDINGS: There is small bilateral pleural effusions. Lung bases are clear of consolidation. There is no perica rdial effusion. Liver spleen pancreas gallbladder appear normal. Bile ducts are not dilated. There is no adrenal mass . Kidneys show satisfactory contrast opacification. There is no hydronephrosis. Ureters are not dilat ed. There are some minimally distended fluid-filled loops of small bowel. Bladder distends smoothly. There is no definite free fluid in the pelvis. Bony structures are intact. Uterus is anteverted. IMPRESSION: THERE IS EVIDENCE FOR MINIMAL SMALL BOWEL ILEUS. No evidence of an abscess. Small pleural effusions.
[2017-12-03] MEDS ORDERED: SODIUM CHLORIDE 0.9% 500 ML IV ONE (19:08)
[2017-12-03] MEDS ORDERED: MORPHINE SULFATE 2 MG/ML SYRINGE IVP STA (19:08)
[2017-12-03] MEDS ORDERED: LORazepam 1 MG TAB PO STA (19:09)
[2017-12-03 19:15] LABS: Amylase 154 U/L (30-110); Lipase 1113 U/L (23-300)
--- NOTE | 2017-12-03 19:20 | ED ---
Abdominal Pain HPI - General Chief Complaint: Abdominal Pain Stated Complaint: abd pain Time Seen by Provider: 12/03/17 19:00 Source: patient Mode of arrival: ambulatory Limitations: no limitations - History of Present Illness Initial Comments: 22-year-old female patient presents to the emergency department today for evaluation after having a computed tomography scan outpatient. There is findings of small bowel ileus. Patient states that she saw her primary care physician today who ordered a CAT scan because she has been having persistent right sided abdominal pain and abdominal bloating since having her appendix removed on 11/26/2017. Surgery was with Dr. Lake. Patient states that she has been having chills, but has not checked her temperature. States that she has been nauseated and feels weak, dizzy, and tired. Patient does not feel that she is getting any better. States that she has been urinating without difficulty. Denies any diarrhea. States she has been taking Tylenol 3 every 6 hours for pain control. Denies any stool softeners. States that she has not passing gas. Has had very little oral intake today. Patient denies any recent rash, shortness breath, chest pain, back pain, numbness, tingling, hematuria, dysuria, urinary urgency, urinary frequency, headache, visual changes, or any other complaints. - Related Data Home Medications Medication Instructions Recorded Confirmed Ranitidine HCl [Zantac] 150 mg PO BID 11/23/17 12/03/17 Falmina-28 1 tab PO HS 11/25/17 12/03/17 Previous Rx's Medication Instructions Recorded Acetaminophen with Codeine 1 tab PO Q6H PRN 3 Days #12 tab 11/29/17 [Tylenol w/codeine #3] Amoxicillin/Potassium Clav 1 tab PO Q12HR #10 tab 11/29/17 [Augmentin 875-125 Tablet] Allergies Allergy/AdvReac Type Severity Reaction Status Date / Time azithromycin [From Zithromax] Allergy Unknown Verified 11/25/17 15:09 latex Allergy Rash/Hives Verified 11/25/17 15:09 tramadol [From Ultram] Allergy Rash/Hives Verified 11/25/17 15:09 Review of Systems ROS Statement: Those systems with pertinent positive or pertinent negative responses have been documented in the HPI. ROS Other: All systems not noted in ROS Statement are negative. Past Medical History Past Medical History: No Reported History History of Any Multi-Drug Resistant Organisms: None Reported Past Surgical History: Appendectomy, Tonsillectomy Past Psychological History: No Psychological Hx Reported Smoking Status: Never smoker Past Alcohol Use History: None Reported Past Drug Use History: None Reported - Past Family History Mother Family Medical History: No Reported History General Exam Limitations: no limitations General appearance: alert, in no apparent distress, other (This is a well- developed, well-nourished adult female patient in no acute distress. Vital signs upon presentation are temperature 98.3F, pulse 89, respiration 18, blood pressure 119/78, pulse ox 99% on room air.) Eye exam: Present: normal appearance, PERRL, EOMI. Absent: scleral icterus, conjunctival injection, periorbital swelling ENT exam: Present: normal exam, normal oropharynx, mucous membranes moist Respiratory exam: Present: normal lung sounds bilaterally. Absent: respiratory distress, wheezes, rales, rhonchi, stridor Cardiovascular Exam: Present: regular rate, normal rhythm, normal heart sounds. Absent: systolic murmur, diastolic murmur, rubs, gallop, clicks GI/Abdominal exam: Present: soft, distended, tenderness (Generalized tenderness , more so around incision sites), normal bowel sounds, other (Has multiple laparoscopic incision sites, no surrounding erythema, no drainage. Incisional tenderness.). Absent: guarding, rebound, rigid Neurological exam: Present: alert, oriented X3, CN II-XII intact Psychiatric exam: Present: normal affect, normal mood Skin exam: Present: warm, dry, intact, normal color. Absent: rash Course Vital Signs 12/03/17 18:42 Temperature 98.3 F Pulse Rate 89 Respiratory 18 Rate Blood Pressure 119/78 O2 Sat by Pulse 99 Oximetry Medical Decision Making - Medical Decision Making 22-year-old female patient presented to the emergency department today for evaluation of increased abdominal pain and bloating after an appendectomy on 10/2017. Patient did have outpatient CT ordered by her primary care physician which did show small bowel ileus. Labs reviewed and showed a platelet count of 537, AST of 152, a LT of 165, amylase 154, lipase 1113. Patient does not drink alcohol and denies any drug use. My attending Dr. Majano did speak to Dr. Gunter to admit patient for further evaluation. IV fluids and pain management will be provided. - Lab Data Result diagrams: 12/03/17 17:30 12/03/17 17:30 Lab Results 12/03/17 12/03/17 12/03/17 Range/Units 17:30 17:30 17:30 WBC 8.1 (3.8-10.6) k/uL RBC 3.95 (3.80-5.40) m/uL Hgb 12.0 D (11.4-16.0) gm/dL Hct 36.9 (34.0-46.0) % MCV 93.3 (80.0-100.0) fL MCH 30.3 (25.0-35.0) pg MCHC 32.5 (31.0-37.0) g/dL RDW 13.8 (11.5-15.5) % Plt Count 537 H D (150-450) k/uL Neutrophils % 63 % Lymphocytes % 29 % Monocytes % 5 % Eosinophils % 2 % Basophils % 1 % Neutrophils # 5.1 (1.3-7.7) k/uL Lymphocytes # 2.3 (1.0-4.8) k/uL Monocytes # 0.4 (0-1.0) k/uL Eosinophils # 0.1 (0-0.7) k/uL Basophils # 0.0 (0-0.2) k/uL Sodium 145 (137-145) mmol/L Potassium 3.8 (3.5-5.1) mmol/L Chloride 101 (98-107) mmol/L Carbon Dioxide 28 (22-30) mmol/L Anion Gap 16 mmol/L BUN 3 L (7-17) mg/dL Creatinine 0.55 (0.52-1.04) mg/dL Est GFR (CKD-EPI)AfAm >90 (>60 ml/min/1.73 sqM) Est GFR (CKD-EPI)NonAf >90 (>60 ml/min/1.73 sqM) Glucose 91 (74-99) mg/dL Calcium 9.8 (8.4-10.2) mg/dL Total Bilirubin 0.3 (0.2-1.3) mg/dL AST 152 H (14-36) U/L ALT 165 H (9-52) U/L Alkaline Phosphatase 57 (38-126) U/L Total Protein 7.6 (6.3-8.2) g/dL Albumin 4.3 (3.5-5.0) g/dL Amylase 154 H (30-110) U/L Lipase 1113 H (23-300) U/L - Radiology Data Radiology results: report reviewed, image reviewed CT abdomen and pelvis with contrast was obtained. Report was reviewed in its entirety. Impression by Dr. Roman shows evidence for minimal small bowel ileus. No evidence of abscess. Small pleural effusions. Disposition Clinical Impression: Ileus, Acute pancreatitis Disposition: [facility] Condition: Serious Referrals: Byron Leslie MD [Primary Care Provider] - 1-2 days Decision to Admit Reason: Admit from EC Decision Date: 12/03/17 Decision Time: 19:46
[2017-12-03] MEDS ORDERED: NALOXONE 0.4 MG/ML 1 ML VIAL IV PRN (19:40)
[2017-12-03 20:46] LABS: Appearance,Urine Clear (Clear); Bilirubin,Urine Negative (Negative); Blood,Urine Negative (Negative); Color,Urine Light Yellow; Glucose,Urine (UA) Negative (Negative); Ketones,Urine Negative (Negative); Leukocyte Esterase,Urine Negative (Negative); Nitrite,Urine Negative (Negative); Protein,Urine Negative (Negative); Specific Gravity,Urine 1.044 (1.001-1.035); Urobilinogen,Urine <2.0 mg/dL (<2.0)
[2017-12-03] MEDS: SODIUM CHLORIDE 0.9% 1,000 ML IV SCH (21:14)
[2017-12-03 21:35] VITALS: BMI 22.7
[2017-12-03] MEDS: MORPHINE SULFATE 2 MG/ML SYRINGE IV PRN (23:34)
--- NOTE | 2017-12-04 00:23 | US ---
EXAMINATION TYPE: US gallbladder DATE OF EXAM: 12/03/2017 COMPARISON: NONE CLINICAL HISTORY: gallstones. RUQ pain EXAM MEASUREMENTS: Liver Length: 15.9 cm Gallbladder Wall: 0.3 cm CBD: 0.4 cm Right Kidney: 11.1 x 3.8 x 4.2 cm Pancreas: wnl Liver: wnl Gallbladder: wnl Evidence for sonographic Arizmendi's sign: No CBD: wnl Right Kidney: wnl IMPRESSION: Negative right upper quadrant abdominal sonogram. No gallstones or dilated ducts.
[2017-12-04] MEDS: SODIUM CHLORIDE 0.9% 1,000 ML IV SCH (05:19)
[2017-12-04 06:04] LABS: Basophils % (A) 1 %; Eosinophils # (A) 0.2 k/uL (0-0.7); Eosinophils % (A) 2 %; HCT 31.6 % (34.0-46.0); HGB 10.4 gm/dL (11.4-16.0); Lymphocytes # (A) 2.3 k/uL (1.0-4.8); Lymphocytes % (A) 29 %; MCH 30.4 pg (25.0-35.0); MCHC 32.9 g/dL (31.0-37.0); MCV 92.3 fL (80.0-100.0); Mean Platelet Volume 6.8; Monocytes # (A) 0.5 k/uL (0-1.0); Monocytes % (A) 6 %; Neutrophils # (A) 4.9 k/uL (1.3-7.7); Neutrophils % (A) 62 %; Platelet Count 453 k/uL (150-450); RBC 3.43 m/uL (3.80-5.40); RDW 13.7 % (11.5-15.5); WBC 7.9 k/uL (3.8-10.6)
[2017-12-04 06:07] LABS: ALT 216 U/L (9-52); AST 201 U/L (14-36); Albumin 3.3 g/dL (3.5-5.0); Alkaline Phosphatase 45 U/L (38-126); Amylase 129 U/L (30-110); Anion Gap 10 mmol/L; Blood Urea Nitrogen 4 mg/dL (7-17); Calcium 8.8 mg/dL (8.4-10.2); Carbon Dioxide 25 mmol/L (22-30); Chloride 108 mmol/L (98-107); Glucose 82 mg/dL (74-99); Lipase 925 U/L (23-300); Sodium 143 mmol/L (137-145); Total Bilirubin 0.3 mg/dL (0.2-1.3)
[2017-12-04] MEDS: MORPHINE SULFATE 2 MG/ML SYRINGE IV PRN ×2 (08:31→22:02)
[2017-12-04] MEDS: ONDANSETRON 4 MG/2 ML VIAL IVP PRN (08:40)
[2017-12-04] MEDS ORDERED: WATER FOR INJECTION, STERILE 10 ML IV ONE (12:54)
[2017-12-04] MEDS: LORazepam 2 MG/ML INJ IV PRN ×2 (13:04→23:45)
[2017-12-04] MEDS: PANTOPRAZOLE 40 MG/10 ML VIAL IVP SCH (13:23)
[2017-12-04] MEDS: LACTATED RINGERS 1,000 ML IV SCH ×2 (13:23→22:38)
--- NOTE | 2017-12-04 16:09 | P.GSCN ---
History of Present Illness Consult date: 12/04/17 Reason for Consult: Pancreatitis History of present illness: The patient was admitted with complaints of abdominal pain yesterday. Her biochemistry showed evidence of peritonitis. Patient states her pain is improved. Her ultrasound shows no gallstones. Past Medical History Past Medical History: No Reported History History of Any Multi-Drug Resistant Organisms: None Reported Past Surgical History: Appendectomy, Tonsillectomy Additional Past Surgical History / Comment(s): lap appy on november 25, discharged november 30 Past Anesthesia/Blood Transfusion Reactions: No Reported Reaction Past Psychological History: Anxiety Smoking Status: Never smoker Past Alcohol Use History: None Reported Past Drug Use History: None Reported - Past Family History Mother Family Medical History: No Reported History Medications and Allergies Home Medications Medication Instructions Recorded Confirmed Type Ranitidine HCl [Zantac] 150 mg PO BID 11/23/17 12/03/17 History Falmina-28 1 tab PO HS 11/25/17 12/03/17 History Acetaminophen with Codeine 1 tab PO Q6H PRN 3 Days #12 tab 11/29/17 12/03/17 Rx [Tylenol w/codeine #3] Amoxicillin/Potassium Clav 1 tab PO Q12HR #10 tab 11/29/17 12/03/17 Rx [Augmentin 875-125 Tablet] Allergies Allergy/AdvReac Type Severity Reaction Status Date / Time azithromycin [From Zithromax] Allergy Unknown Verified 11/25/17 15:09 latex Allergy Rash/Hives Verified 11/25/17 15:09 tramadol [From Ultram] Allergy Rash/Hives Verified 11/25/17 15:09 Surgical - Exam Vital Signs Temp Pulse Resp BP Pulse Ox 98.3 F 89 18 119/78 99 12/03/17 18:42 12/03/17 18:42 12/03/17 18:42 12/03/17 18:42 12/03/17 18:42 - General well developed, no distress - Eyes PERRL - ENT normal pinna - Neck no masses - Respiratory normal expansion - Cardiovascular Rhythm: regular - Abdomen Mild epigastric tenderness Abdomen: soft Results - Labs 12/04/17 05:43 12/04/17 05:43 Abnormal Lab Results - Last 24 Hours (Table) 12/03/17 12/03/17 12/03/17 Range/Units 17:30 17:30 17:30 RBC (3.80-5.40) m/uL Hgb (11.4-16.0) gm/dL Hct (34.0-46.0) % Plt Count 537 H D (150-450) k/uL Chloride (98-107) mmol/L BUN 3 L (7-17) mg/dL AST 152 H (14-36) U/L ALT 165 H (9-52) U/L Total Protein (6.3-8.2) g/dL Albumin (3.5-5.0) g/dL Amylase 154 H (30-110) U/L Lipase 1113 H (23-300) U/L Ur Specific [place] (1.001-1.035) 12/03/17 12/04/17 12/04/17 Range/Units 20:34 05:43 05:43 RBC 3.43 L (3.80-5.40) m/uL Hgb 10.4 L (11.4-16.0) gm/dL Hct 31.6 L (34.0-46.0) % Plt Count 453 H (150-450) k/uL Chloride 108 H (98-107) mmol/L BUN 4 L (7-17) mg/dL AST 201 H (14-36) U/L ALT 216 H (9-52) U/L Total Protein 6.0 L (6.3-8.2) g/dL Albumin 3.3 L (3.5-5.0) g/dL Amylase 129 H (30-110) U/L Lipase 925 H (23-300) U/L Ur Specific [place] 1.044 H (1.001-1.035) Diabetes panel 12/03/17 12/04/17 Range/Units 17:30 05:43 Sodium 145 143 (137-145) mmol/L Potassium 3.8 4.0 (3.5-5.1) mmol/L Chloride 101 108 H (98-107) mmol/L Carbon Dioxide 28 25 (22-30) mmol/L BUN 3 L 4 L (7-17) mg/dL Creatinine 0.55 0.56 (0.52-1.04) mg/dL Glucose 91 82 (74-99) mg/dL Calcium 9.8 8.8 (8.4-10.2) mg/dL AST 152 H 201 H (14-36) U/L ALT 165 H 216 H (9-52) U/L Alkaline Phosphatase 57 45 (38-126) U/L Total Protein 7.6 6.0 L (6.3-8.2) g/dL Albumin 4.3 3.3 L (3.5-5.0) g/dL Calcium panel 12/03/17 12/04/17 Range/Units 17:30 05:43 Calcium 9.8 8.8 (8.4-10.2) mg/dL Albumin 4.3 3.3 L (3.5-5.0) g/dL Pituitary panel 12/03/17 12/04/17 Range/Units 17:30 05:43 Sodium 145 143 (137-145) mmol/L Potassium 3.8 4.0 (3.5-5.1) mmol/L Chloride 101 108 H (98-107) mmol/L Carbon Dioxide 28 25 (22-30) mmol/L BUN 3 L 4 L (7-17) mg/dL Creatinine 0.55 0.56 (0.52-1.04) mg/dL Glucose 91 82 (74-99) mg/dL Calcium 9.8 8.8 (8.4-10.2) mg/dL Adrenal panel 12/03/17 12/04/17 Range/Units 17:30 05:43 Sodium 145 143 (137-145) mmol/L Potassium 3.8 4.0 (3.5-5.1) mmol/L Chloride 101 108 H (98-107) mmol/L Carbon Dioxide 28 25 (22-30) mmol/L BUN 3 L 4 L (7-17) mg/dL Creatinine 0.55 0.56 (0.52-1.04) mg/dL Glucose 91 82 (74-99) mg/dL Calcium 9.8 8.8 (8.4-10.2) mg/dL Total Bilirubin 0.3 0.3 (0.2-1.3) mg/dL AST 152 H 201 H (14-36) U/L ALT 165 H 216 H (9-52) U/L Alkaline Phosphatase 57 45 (38-126) U/L Total Protein 7.6 6.0 L (6.3-8.2) g/dL Albumin 4.3 3.3 L (3.5-5.0) g/dL Assessment and Plan Assessment: Pancreatitis. Patient also was negative. HIDA scan is pending. We will follow with you.
--- NOTE | 2017-12-04 16:12 | P.HPIM ---
History of Present Illness Patient is a very pleasant 30-year-old female came in with complaints of severe right upper quadrant abdominal pain and epigastric abdominal pain and epigastric abdominal pain is mostly burning sensation found to have elevated lipase. Patient is also found to have ileus. Ultrasound of the abdomen did not show any gallstones. Patient is not an alcoholic. Patient has elevated liver enzymes. Patient was admitted and made nothing by mouth. Patient had a recent abdominal surgery and removal of appendix on 11/26/2017. Since then patient has been having this abdominal bloating started having severe abdominal pain progressively gotten worse since her discharge unsure the exact onset of this severity. Patient does have right upper quadrant abdominal tenderness as well as epigastric abdominal tenderness upon exam. Surgery was consulted HIDA scan is being obtained with concerns of acute cholecystitis which was not seen on ultrasound of the abdomen. Patient remains nothing by mouth. After the HIDA HIDA scan as patient is requesting can be started on clear liquid diet if that is okay with surgical services. Patient will be started on Tylenol for pain we'll try to avoid nonsteroidal anti-inflammatories as there is a possibility of gastritis or give her Protonix if patient requires more pain medications will judiciously give Toradol for pain along with proton pump inhibitor. Patient was having multiple episodes of nausea and vomiting. CAT scan of the abdomen did show some small bowel ileus. Review of Systems REVIEW OF SYSTEMS: CONSTITUTIONAL: No fever, no malaise, no fatigue. HEENT: No recent visual problems or hearing problems. Denied any sore throat. CARDIOVASCULAR: No chest pain, orthopnea, PND, no palpitations, no syncope. PULMONARY: No shortness of breath, no cough, no hemoptysis. GASTROINTESTINAL: As mentioned in HPI NEUROLOGICAL: No headaches, no weakness, no numbness. HEMATOLOGICAL: Denies any bleeding or petechiae. GENITOURINARY: Denies any burning micturition, frequency, or urgency. MUSCULOSKELETAL/RHEUMATOLOGICAL: Denies any joint pain, swelling, or any muscle pain. ENDOCRINE: Denies any polyuria or polydipsia. The rest of the 14-point review of systems is negative. Past Medical History Past Medical History: No Reported History History of Any Multi-Drug Resistant Organisms: None Reported Past Surgical History: Appendectomy, Tonsillectomy Additional Past Surgical History / Comment(s): lap appy on november 25, discharged november 30 Past Anesthesia/Blood Transfusion Reactions: No Reported Reaction Past Psychological History: Anxiety Smoking Status: Never smoker Past Alcohol Use History: None Reported Past Drug Use History: None Reported - Past Family History Mother Family Medical History: No Reported History Medications and Allergies Home Medications Medication Instructions Recorded Confirmed Type Ranitidine HCl [Zantac] 150 mg PO BID 11/23/17 12/03/17 History Falmina-28 1 tab PO HS 11/25/17 12/03/17 History Acetaminophen with Codeine 1 tab PO Q6H PRN 3 Days #12 tab 11/29/17 12/03/17 Rx [Tylenol w/codeine #3] Amoxicillin/Potassium Clav 1 tab PO Q12HR #10 tab 11/29/17 12/03/17 Rx [Augmentin 875-125 Tablet] Allergies Allergy/AdvReac Type Severity Reaction Status Date / Time azithromycin [From Zithromax] Allergy Unknown Verified 11/25/17 15:09 latex Allergy Rash/Hives Verified 11/25/17 15:09 tramadol [From Ultram] Allergy Rash/Hives Verified 11/25/17 15:09 Physical Exam Vitals: Vital Signs Temp Pulse Pulse Pulse Resp BP BP 12/04/17 14:59 98.7 F 90 18 113/62 12/04/17 08:45 88 12/04/17 08:25 98.1 F 88 20 110/65 12/03/17 23:45 98.2 F 72 18 12/03/17 21:19 98.1 F 76 20 12/03/17 20:37 99.0 F 76 18 109/60 12/03/17 18:42 98.3 F 89 18 119/78 BP Pulse Ox 12/04/17 14:59 99 12/04/17 08:45 12/04/17 08:25 98 12/03/17 23:45 110/70 12/03/17 21:19 109/73 98 12/03/17 20:37 98 12/03/17 18:42 99 Intake and Output 12/04/17 12/04/17 12/04/17 06:59 14:59 22:59 Output Total 1100 Balance -1100 Output: Urine 1100 Other: Voiding Method Toilet # Voids 1 # Bowel Movements 1 PHYSICAL EXAMINATION: GENERAL: The patient is alert and oriented x3, not in any acute distress. Well developed, well nourished. HEENT: Pupils are round and equally reacting to light. EOMI. No scleral icterus. No conjunctival pallor. Normocephalic, atraumatic. No pharyngeal erythema. No thyromegaly. CARDIOVASCULAR: S1 and S2 present. No murmurs, rubs, or gallops. PULMONARY: Chest is clear to auscultation, no wheezing or crackles. ABDOMEN: Soft, right upper quadrant and epigastric abdominal tenderness MUSCULOSKELETAL: No joint swelling or deformity. EXTREMITIES: No cyanosis, clubbing, or pedal edema. NEUROLOGICAL: Gross neurological examination did not reveal any focal deficits. SKIN: No rashes. Results CBC & Chem 7: 12/04/17 05:43 12/04/17 05:43 Labs: Abnormal Lab Results - Last 24 Hours (Table) 12/03/17 12/03/17 12/03/17 Range/Units 17:30 17:30 17:30 RBC (3.80-5.40) m/uL Hgb (11.4-16.0) gm/dL Hct (34.0-46.0) % Plt Count 537 H D (150-450) k/uL Chloride (98-107) mmol/L BUN 3 L (7-17) mg/dL AST 152 H (14-36) U/L ALT 165 H (9-52) U/L Total Protein (6.3-8.2) g/dL Albumin (3.5-5.0) g/dL Amylase 154 H (30-110) U/L Lipase 1113 H (23-300) U/L Ur Specific [place] (1.001-1.035) 12/03/17 12/04/17 12/04/17 Range/Units 20:34 05:43 05:43 RBC 3.43 L (3.80-5.40) m/uL Hgb 10.4 L (11.4-16.0) gm/dL Hct 31.6 L (34.0-46.0) % Plt Count 453 H (150-450) k/uL Chloride 108 H (98-107) mmol/L BUN 4 L (7-17) mg/dL AST 201 H (14-36) U/L ALT 216 H (9-52) U/L Total Protein 6.0 L (6.3-8.2) g/dL Albumin 3.3 L (3.5-5.0) g/dL Amylase 129 H (30-110) U/L Lipase 925 H (23-300) U/L Ur Specific [place] 1.044 H (1.001-1.035) Thrombosis Risk Factor Assmnt - Choose All That Apply Each Factor Represents 1 point: Oral contraceptives or hormone replacement therapy Other Risk Factors: No Other congenital or acquired thrombophilia - If yes, enter type in comment: No Thrombosis Risk Factor Assessment Total Risk Factor Score: 1 Thrombosis Risk Factor Assessment Level: Low Risk Assessment and Plan Plan: -Acute pancreatitis: Most probably gallstone pancreatitis. Patient does have elevated liver enzymes although there is no common bile ductal agitation may be related to the past gallops stones. Patient also has ileus may be related to gallstone ileus. Patient will remain nothing by mouth for now, ultrasound did not show any evidence of cholecystitis, patient will undergo HIDA scan High-possibility of acute gastritis: Management as mentioned and uncontrolled history -Ileus: As mentioned above possibly gallstone ileus -Elevated liver enzymes most probably due to past gallstone other possibility being the medication-related Augmentin can cause cholestasis although his alkaline phosphatase is within normal limits and AST and ALP is elevated will repeat a liver enzymes tomorrow.
[2017-12-04] MEDS: KETOROLAC 30 MG/ML 1 ML VIAL IVP PRN ×2 (17:35→23:46)
--- NOTE | 2017-12-04 17:39 | NM ---
EXAMINATION TYPE: NM hepatobiliary w CCK DATE OF EXAM: 12/04/2017 COMPARISON: NONE HISTORY: Nausea and abdominal pain TECHNIQUE: After the intravenous administration of 4.8 mCi Tc 99m Mebrofenin hepatobiliary scintigrap hy is performed. Immediate images post injection. FINDINGS: There is satisfactory initial accumulation of tracer by the liver. The gallbladder is visualized wit hin 8 minutes. The small bowel activity is noted within 46 minutes. At one hour CCK was administere d, patient was injected with 1.1 mcg of Kinevac, and gallbladder ejection fraction is calculated at 2 1 %, . IMPRESSION: Large gallbladder. 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 No focal liver defect.
[2017-12-05] MEDS: KETOROLAC 30 MG/ML 1 ML VIAL IVP PRN ×2 (06:41→17:51)
[2017-12-05] MEDS: LACTATED RINGERS 1,000 ML IV SCH ×2 (06:45→16:35)
[2017-12-05 07:53] LABS: Basophils % (A) 1 %; Eosinophils # (A) 0.1 k/uL (0-0.7); Eosinophils % (A) 2 %; HCT 35.2 % (34.0-46.0); HGB 11.3 gm/dL (11.4-16.0); Lymphocytes # (A) 2.1 k/uL (1.0-4.8); Lymphocytes % (A) 35 %; MCHC 32.1 g/dL (31.0-37.0); MCV 93.3 fL (80.0-100.0); Mean Platelet Volume 6.7; Monocytes # (A) 0.4 k/uL (0-1.0); Monocytes % (A) 7 %; Neutrophils # (A) 3.2 k/uL (1.3-7.7); Neutrophils % (A) 53 %; Platelet Count 469 k/uL (150-450); RBC 3.77 m/uL (3.80-5.40); RDW 13.5 % (11.5-15.5)
[2017-12-05 08:05] LABS: ALT 370 U/L (9-52); AST 280 U/L (14-36); Albumin 3.6 g/dL (3.5-5.0); Alkaline Phosphatase 49 U/L (38-126); Amylase 179 U/L (30-110); Anion Gap 11 mmol/L; Blood Urea Nitrogen 3 mg/dL (7-17); Calcium 9.6 mg/dL (8.4-10.2); Carbon Dioxide 27 mmol/L (22-30); Chloride 103 mmol/L (98-107); Glucose 85 mg/dL (74-99); Lipase 1419 U/L (23-300); Potassium 4.1 mmol/L (3.5-5.1); Sodium 141 mmol/L (137-145); Total Bilirubin 0.4 mg/dL (0.2-1.3); Total Protein 6.3 g/dL (6.3-8.2)
[2017-12-05] MEDS ORDERED: KETOROLAC 30 MG/ML 1 ML VIAL IVP STA (09:08)
[2017-12-05] MEDS: LORazepam 2 MG/ML INJ IV PRN ×2 (10:46→19:32)
[2017-12-05] MEDS: PANTOPRAZOLE 40 MG/10 ML VIAL IVP SCH (10:46)
[2017-12-05] MEDS: MORPHINE SULFATE 2 MG/ML SYRINGE IV PRN ×2 (13:34→19:43)
[2017-12-05] MEDS: ONDANSETRON 4 MG/2 ML VIAL IVP PRN (14:07)
--- NOTE | 2017-12-05 15:23 | P.PN ---
Subjective Progress Note Date: 12/05/17 22-year-old female seen this morning at the bedside currently resting in bed states is hungry and is asking for diet to be started. States the nausea sensation has improved and there is less abdominal pain when questioning no active emesis. Did note the lipase is elevated this morning 1419 with amylase 179 AST are elevated AST to 80, ALT 370, alkaline phosphatase 49. 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 Objective - Vital Signs Vital signs: Vital Signs Temp 98.4 F 12/05/17 08:00 Pulse 88 12/05/17 08:00 Resp 18 12/05/17 08:00 BP 113/66 12/05/17 08:00 Pulse Ox 97 12/05/17 08:00 Intake & Output 12/04/17 12/05/17 12/05/17 18:59 06:59 18:59 Intake Total 480 Output Total 1525 Balance -1045 Intake: Oral 480 Output: Urine 1525 Other: Voiding Method Toilet # Voids 1 # Bowel Movements 1 - Exam Physical exam 22-year-old female sitting up in bed appears in no acute distress talkative visitors at bedside Lungs adequate air movement bilaterally on room air Heart S1-S2 audible regular Abdomen surgical incision sites dressings dry soft no facial grimacing with palpitation to the abdominal wall states less abdominal pain less nausea sensation is asking for a diet. Bowel tones present. No frequent stooling Extremities no edema noted - Labs CBC & Chem 7: 12/05/17 07:37 12/05/17 07:37 Labs: Abnormal Lab Results - Last 24 Hours (Table) 12/05/17 12/05/17 Range/Units 07:37 07:37 RBC 3.77 L (3.80-5.40) m/uL Hgb 11.3 L (11.4-16.0) gm/dL Plt Count 469 H (150-450) k/uL BUN 3 L (7-17) mg/dL AST 280 H (14-36) U/L ALT 370 H (9-52) U/L Amylase 179 H (30-110) U/L Lipase 1419 H (23-300) U/L Assessment and Plan Assessment: Impression Present on admission abdominal pain with elevated lipase and amylase suspect due to acute pancreatitis A recent laparoscopic appendectomy November 25 for acute appendicitis Ultrasound of the gallbladder showed no evidence of gallstones or dilated ducts HIDA scan done on December 04 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 Lissette Gibson nurse practitioner acting as scribe for signing physician.
--- NOTE | 2017-12-05 15:43 | P.PN ---
Subjective 22-year-old pleasant female admitted for a right upper quadrant abdominal pain and epigastric abdominal pain. In spite of concerns of gastritis patient is on an nonsteroidal anti-inflammatories, patient is also on Protonix. Patient was evaluated by gastroenterology had a scan was obtained which showed decreased ejection fraction, Gen. surgery is not planning on any surgical intervention at this point of time that not requiring any antiemetics at this point of time. Patient can use to have elevated liver enzymes because of which in counseling gastroenterology hepatitis panel is being obtained. Patient's lipase is a bit elevated more than yesterday. Although patient nausea improved and patient is not having pain after eating because of that reason I'm continuing her diet which was ordered by surgery, I advised the patient if she has nausea vomiting or abdominal pain increased with food she had to stop eating and repeat lipase will be obtained tomorrow. She still has some epigastric abdominal pain and tenderness which she believes is secondary to surgery. Constitutional: Denied any fatigue denied any fever. Cardio vascular: denied any chest pain, palpitations Gastrointestinal denied any nausea vomiting Pulmonary: Denied any shortness of breath cough Neurologic denied any new focal deficits Objective - Vital Signs Vital signs: Vital Signs Temp 98.4 F 12/05/17 08:00 Pulse 88 12/05/17 08:00 Resp 18 12/05/17 08:00 BP 113/66 12/05/17 08:00 Pulse Ox 97 12/05/17 08:00 Intake & Output 12/04/17 12/05/17 12/05/17 18:59 06:59 18:59 Intake Total 480 Output Total 1525 Balance -1045 Intake: Oral 480 Output: Urine 1525 Other: Voiding Method Toilet # Voids 1 # Bowel Movements 1 - Exam PHYSICAL EXAMINATION: GENERAL: The patient is alert and oriented x3, not in any acute distress. Well developed, well nourished. HEENT: Pupils are round and equally reacting to light. EOMI. No scleral icterus. No conjunctival pallor. Normocephalic, atraumatic. No pharyngeal erythema. No thyromegaly. CARDIOVASCULAR: S1 and S2 present. No murmurs, rubs, or gallops. PULMONARY: Chest is clear to auscultation, no wheezing or crackles. ABDOMEN: Soft, right upper quadrant and epigastric abdominal tenderness MUSCULOSKELETAL: No joint swelling or deformity. EXTREMITIES: No cyanosis, clubbing, or pedal edema. NEUROLOGICAL: Gross neurological examination did not reveal any focal deficits. SKIN: No rashes. - Labs CBC & Chem 7: 12/05/17 07:37 12/05/17 07:37 Labs: Abnormal Lab Results - Last 24 Hours (Table) 12/05/17 12/05/17 Range/Units 07:37 07:37 RBC 3.77 L (3.80-5.40) m/uL Hgb 11.3 L (11.4-16.0) gm/dL Plt Count 469 H (150-450) k/uL BUN 3 L (7-17) mg/dL AST 280 H (14-36) U/L ALT 370 H (9-52) U/L Amylase 179 H (30-110) U/L Lipase 1419 H (23-300) U/L Assessment and Plan Plan: -Acute pancreatitis: Most probably gallstone pancreatitis. Patient does have elevated liver enzymes although there is no common bile ductal dilation and elevated liver enzymes are secondary to passage of gallstone. Patient has decreased ejection fraction on HIDA scan. Continue to have elevated liver enzymes consult thing gastroenterology Patient also has ileus may be related to gallstone ileus. patient is on clear liquid diet, if patient is able to tolerate clinically without any pain and nausea vomiting this will be continued -possibility of acute gastritis: Management as mentioned and uncontrolled history -Ileus: As mentioned above possibly gallstone ileus -Elevated liver enzymes most probably due to past gallstone other possibility being the medication-related Augmentin can cause cholestasis although his alkaline phosphatase is within normal limits and AST and ALP is elevated will repeat a liver enzymes tomorrow.
[2017-12-05 22:49] LABS: Hepatitis A Antibody IgM Non-Reactive (Non-Reactive); Hepatitis B Core IgM Non-Reactive (Non-Reactive)
[2017-12-06 06:51] LABS: MCHC 32.4 g/dL (31.0-37.0); MCV 92.7 fL (80.0-100.0); Mean Platelet Volume 6.5; Platelet Count 522 k/uL (150-450); RBC 3.66 m/uL (3.80-5.40); RDW 13.9 % (11.5-15.5); WBC 6.9 k/uL (3.8-10.6)
[2017-12-06 07:04] LABS: ALT 503 U/L (9-52); AST 394 U/L (14-36); Albumin 3.5 g/dL (3.5-5.0); Alkaline Phosphatase 49 U/L (38-126); Amylase 223 U/L (30-110); Anion Gap 11 mmol/L; Blood Urea Nitrogen 3 mg/dL (7-17); Calcium 9.4 mg/dL (8.4-10.2); Carbon Dioxide 27 mmol/L (22-30); Chloride 103 mmol/L (98-107); Glucose 77 mg/dL (74-99); Lipase 1873 U/L (23-300); Potassium 4.3 mmol/L (3.5-5.1); Sodium 141 mmol/L (137-145); Total Bilirubin 0.5 mg/dL (0.2-1.3); Total Protein 6.3 g/dL (6.3-8.2)
[2017-12-06] MEDS: LORazepam 2 MG/ML INJ IV PRN ×2 (08:31→17:59)
[2017-12-06] MEDS: PANTOPRAZOLE 40 MG/10 ML VIAL IVP SCH (09:34)
--- NOTE | 2017-12-06 10:30 | P.CONS ---
History of Present Illness - Reason for Consult Consult date: 12/06/17 Pancreatitis Requesting physician: Emery Beavers - History of Present Illness 22-year-old female admitted a week ago with acute abdominal pain underwent laparoscopic appendectomy on 11/26/2017. Patient has been hospitalized twice over the last week secondary to persistent abdominal pain. She describes her pain is very sharp localized mostly in the upper right abdomen. She has had multiple imaging studies over the last week. 11/23/2017 CT abdomen and pelvis small amount of free fluid within the cul-de- sac. Normal appendix 11/27/2017 CT abdomen and pelvis reported biliary sludge periportal edema. Subtle CT findings can correlate with a clinical diagnosis of non-complicated appendicitis. No significant abnormality seen within the liver gallbladder pancreas or spleen. 12/03/2017 ultrasound no evidence of gallstones. CBD 0.4 cm. 12/04/2017 HIDA scan 21%. Liver pancreatic chemistries over the last week total bilirubin 0.3-0.7. AST 10 -394. ALT 29-503. AP 39-57. Lipase 77-1873. Amylase 54-to 23. No history of pancreatitis no recent changes in medications. No history of alcoholism. No history of known autoimmune, liver or pancreatic disorders. Presently she is without abdominal pain. Afebrile. Denies hematemesis hematochezia melena. Hepatitis screen nonreactive. Review of Systems Constitutional: Denies fever, chills, sweats, weight gain, or loss. HEENT: Negative for migraines, blurred vision or loss, earaches, drainage, tinnitus, oral mucosal lesions, dysphagia, or odynophagia. CARDIAC: Negative for chest pain, arrhythmias, or palpitation. RESPIRATORY: Negative for shortness of breath, hemoptysis, cough, or sputum production. GI: See HPI for pertinent findings. : Negative for hematuria, urgency, frequency, polyuria, or dysuria. GYNc: Denies possibility of . Negative vaginal discharge. MUSCULOSKELETAL: Negative for muscle aches, swelling, arthritis, and arthralgias. NEUROLOGIC: Negative for stroke or TIA. ENDOCRINE: Negative for thyroid problems. SKIN: Negative for rash or itching. PSYCHIATRIC: Negative history for depression and anxiety Past Medical History Past Medical History: No Reported History History of Any Multi-Drug Resistant Organisms: None Reported Past Surgical History: Appendectomy, Tonsillectomy Additional Past Surgical History / Comment(s): hesham manning on november 25, discharged november 30 Past Anesthesia/Blood Transfusion Reactions: No Reported Reaction Past Psychological History: Anxiety Smoking Status: Never smoker Past Alcohol Use History: None Reported Past Drug Use History: None Reported - Past Family History Mother Family Medical History: No Reported History Medications and Allergies Home Medications Medication Instructions Recorded Confirmed Type Ranitidine HCl [Zantac] 150 mg PO BID 11/23/17 12/03/17 History Falmina-28 1 tab PO HS 11/25/17 12/03/17 History Acetaminophen with Codeine 1 tab PO Q6H PRN 3 Days #12 tab 11/29/17 12/03/17 Rx [Tylenol w/codeine #3] Amoxicillin/Potassium Clav 1 tab PO Q12HR #10 tab 11/29/17 12/03/17 Rx [Augmentin 875-125 Tablet] Allergies Allergy/AdvReac Type Severity Reaction Status Date / Time azithromycin [From Zithromax] Allergy Unknown Verified 11/25/17 15:09 latex Allergy Rash/Hives Verified 11/25/17 15:09 tramadol [From Ultram] Allergy Rash/Hives Verified 11/25/17 15:09 Physical Exam Vitals: Vital Signs Temp Pulse Resp BP Pulse Ox 12/06/17 08:00 98.2 F 88 18 116/75 96 12/05/17 20:27 97.9 F 79 16 111/65 99 12/05/17 15:51 97.7 F 92 16 112/65 98 Intake and Output 12/05/17 12/06/17 12/06/17 22:59 06:59 14:59 Intake Total 120 0 Balance 120 0 Intake: Oral 120 0 General appearance: The patient is alert, oriented, in no acute distress. HET: Head is normocephalic and atraumatic. Pupils are equal and reactive. Oropharynx is clear without lesions. Neck: Supple without lymphadenopathy. Trachea midline. Heart: S1 S2. Regular rate and rhythm. Lungs: No crackles or wheezes are heard. Abdomen: Soft, nontender, nondistended with bowel sounds. Laparoscopic incisions without erythema or drainage. No peritoneal signs. No palpable organomegaly or masses. Extremities: Normal skin color and turgor. No cyanosis, rash, ulceration, clubbing, or edema. Radial and pedal pulses are 2/4 bilaterally. Neurological: No focal deficits. Strength and sensation are grossly intact. Results CBC & Chem 7: 12/06/17 06:09 12/06/17 06:09 Labs: Abnormal Lab Results - Last 24 Hours (Table) 12/06/17 12/06/17 Range/Units 06:09 06:09 RBC 3.66 L (3.80-5.40) m/uL Hgb 11.0 L (11.4-16.0) gm/dL Plt Count 522 H (150-450) k/uL BUN 3 L (7-17) mg/dL AST 394 H (14-36) U/L ALT 503 H (9-52) U/L Amylase 223 H (30-110) U/L Lipase 1873 H (23-300) U/L Comments: HIDA scan report reviewed by Dr. Zepeda CT scan - abdomen: report reviewed (Dr. Zepeda) Assessment and Plan (1) Acute pancreatitis Narrative/Plan: Suspect biliary pancreatitis, gallbladder sludge seen on CT imaging. Transaminitis most likely reflective of edema from pancreatitis choledocholithiasis felt to be less likely but cannot be entirely excluded. Possible biliary dyskinesia HIDA scan ejection fraction 21% general surgery evaluating. Current Visit: Yes Status: Acute Code(s): K85.90 - ACUTE PANCREATITIS WITHOUT NECROSIS OR INFECTION, UNSP SNOMED Code(s): 801823602 (2) Elevated liver enzymes Current Visit: Yes Status: Acute Code(s): R74.8 - ABNORMAL LEVELS OF OTHER SERUM ENZYMES SNOMED Code(s): 625523598 (3) Status post laparoscopic appendectomy Current Visit: Yes Status: Acute Code(s): Z90.49 - ACQUIRED ABSENCE OF OTHER SPECIFIED PARTS OF DIGESTIVE TRACT SNOMED Code(s): 850130699 Plan: 1. Patient has a symptomatic without abdominal pain. Clear liquid diet. IV hydration MRCP/ERCP is not planned at this time. We will obtain REE and subclass IgG4 to evaluate for autoimmune pathology even though it is felt to be less likely the cause of her presentation. 2. General surgery is following closely outpatient cholecystectomy was discussed. 3. Repeat liver pancreatic enzymes in a.m. if improved discharge per medicine and follow-up with GI says advised. 4. GI prophylaxis. Supportive measures. Thank you for this kind referral and the opportunity to participate in the care of your patient. This consultation was discussed with Dr. Zepeda. The impression and plan of care have been directed as dictated.
--- NOTE | 2017-12-06 11:03 | P.PN ---
Progress Note - Text Progress Note Date: 12/06/17 The patient is resting comfortably in bed. She has no complaints of pain. She is tolerating a diet and had no vomiting. On exam her vital signs are stable. Her abdomen is soft. Resolving pancreatitis. Patient was discharged home. She'll follow myself next week.
--- NOTE | 2017-12-06 13:19 | P.PN ---
Subjective 22-year-old pleasant female admitted for a right upper quadrant abdominal pain and epigastric abdominal pain. In spite of concerns of gastritis patient is on an nonsteroidal anti-inflammatories, patient is also on Protonix. Patient was evaluated by gastroenterology had a scan was obtained which showed decreased ejection fraction, Gen. surgery is not planning on any surgical intervention at this point of time that not requiring any antiemetics at this point of time. Patient can use to have elevated liver enzymes because of which in counseling gastroenterology hepatitis panel is being obtained. Patient's lipase is a bit elevated more than yesterday. Although patient nausea improved and patient is not having pain after eating because of that reason I'm continuing her diet which was ordered by surgery, I advised the patient if she has nausea vomiting or abdominal pain increased with food she had to stop eating and repeat lipase will be obtained tomorrow. She still has some epigastric abdominal pain and tenderness which she believes is secondary to surgery. 12/06/2017 Patient continues to have elevation of liver enzymes, gastric body evaluate the patient and obtaining autoimmune workup hepatitis panel is negative may be related to Augmentin. Patient was cleared for discharge from surgical perspective with the constricting her elevated liver enzymes are do not believe patient is ready for discharge patient's lipase is also going up, I'll make patient nothing by mouth at this time. Patient is not medically stable to be discharged at this time. Constitutional: Denied any fatigue denied any fever. Cardio vascular: denied any chest pain, palpitations Gastrointestinal denied any nausea vomiting Pulmonary: Denied any shortness of breath cough Neurologic denied any new focal deficits Objective - Vital Signs Vital signs: Vital Signs Temp 98.0 F 12/06/17 11:59 Pulse 87 12/06/17 11:59 Resp 20 12/06/17 11:59 BP 113/74 12/06/17 11:59 Pulse Ox 97 12/06/17 11:59 Intake & Output 12/05/17 12/06/17 12/06/17 18:59 06:59 18:59 Intake Total 120 120 Balance 120 120 Intake: Oral 120 120 Other: # Voids 2 - Exam PHYSICAL EXAMINATION: GENERAL: The patient is alert and oriented x3, not in any acute distress. Well developed, well nourished. HEENT: Pupils are round and equally reacting to light. EOMI. No scleral icterus. No conjunctival pallor. Normocephalic, atraumatic. No pharyngeal erythema. No thyromegaly. CARDIOVASCULAR: S1 and S2 present. No murmurs, rubs, or gallops. PULMONARY: Chest is clear to auscultation, no wheezing or crackles. ABDOMEN: Soft, right upper quadrant and epigastric abdominal tenderness MUSCULOSKELETAL: No joint swelling or deformity. EXTREMITIES: No cyanosis, clubbing, or pedal edema. NEUROLOGICAL: Gross neurological examination did not reveal any focal deficits. SKIN: No rashes. - Labs CBC & Chem 7: 12/06/17 06:09 12/06/17 06:09 Labs: Abnormal Lab Results - Last 24 Hours (Table) 12/06/17 12/06/17 Range/Units 06:09 06:09 RBC 3.66 L (3.80-5.40) m/uL Hgb 11.0 L (11.4-16.0) gm/dL Plt Count 522 H (150-450) k/uL BUN 3 L (7-17) mg/dL AST 394 H (14-36) U/L ALT 503 H (9-52) U/L Amylase 223 H (30-110) U/L Lipase 1873 H (23-300) U/L Assessment and Plan Plan: -Acute pancreatitis: Most probably gallstone pancreatitis. Patient does have elevated liver enzymes , etiology is not clear gastric body evaluate the patient and patient is undergoing auto human workup quite a bit frustrated as she cannot go home. Patient has decreased ejection fraction on HIDA scan. Continue to have elevated liver enzymes consult thing gastroenterology Patient also has ileus may be related to gallstone ileus. patient is on clear liquid diet, if patient is able to tolerate clinically without any pain and nausea vomiting this will be continued -possibility of acute gastritis: Management as mentioned and uncontrolled history -Ileus: As mentioned above possibly gallstone ileus, resolved now -Elevated liver enzymes etiology is not clear hepatitis panel negative undergoing further workup for autoimmune diseases. Repeat compresses metabolic profile tomorrow, if liver enzymes trended down patient will be discharged I'll also obtain INR level. Considering her worsening lipase patient should be nothing by mouth
[2017-12-06] MEDS: LACTATED RINGERS 1,000 ML IV SCH ×2 (18:08→18:13)
[2017-12-06] MEDS: MORPHINE SULFATE 2 MG/ML SYRINGE IV PRN (19:39)
[2017-12-06] MEDS: MELATONIN 5 MG TABLET PO SCH (21:17)
[2017-12-07] MEDS: LACTATED RINGERS 1,000 ML IV SCH ×3 (06:26→22:00)
[2017-12-07] MEDS: MORPHINE SULFATE 2 MG/ML SYRINGE IV PRN (07:12)
[2017-12-07 08:15] LABS: ALT 609 U/L (9-52); AST 390 U/L (14-36); Albumin 3.8 g/dL (3.5-5.0); Alkaline Phosphatase 48 U/L (38-126); Amylase 280 U/L (30-110); Anion Gap 11 mmol/L; Blood Urea Nitrogen 4 mg/dL (7-17); Calcium 9.4 mg/dL (8.4-10.2); Carbon Dioxide 26 mmol/L (22-30); Chloride 102 mmol/L (98-107); Glucose 76 mg/dL (74-99); Potassium 4.1 mmol/L (3.5-5.1); Sodium 139 mmol/L (137-145); Total Bilirubin 0.5 mg/dL (0.2-1.3); Total Protein 6.7 g/dL (6.3-8.2)
[2017-12-07 08:27] LABS: Lipase 2012 U/L (23-300)
[2017-12-07] MEDS: PANTOPRAZOLE 40 MG/10 ML VIAL IVP SCH (09:00)
[2017-12-07] MEDS: KETOROLAC 30 MG/ML 1 ML VIAL IVP PRN (09:00)
[2017-12-07] MEDS: ONDANSETRON 4 MG/2 ML VIAL IVP PRN (09:02)
--- NOTE | 2017-12-07 09:40 | P.PN ---
Progress Note - Text Progress Note Date: 12/07/17 The patient states she feels better today. She wants to go home. She still requiring some morphine for pain. She denies a significant nausea. On exam her vital signs are stable. Her abdomen soft. There is some minimal epigastric tenderness. The patient's amylase and lipase have risen today. She'll be observed. No surgical intervention is planned at this point. The patient does have chronic cholecystitis and biliary dyskinesia. We will plan for outpatient laparoscopic ostectomy once her pancreatitis has resolved.
[2017-12-07] MEDS: LORazepam 2 MG/ML INJ IV PRN ×2 (10:20→20:16)
[2017-12-07 12:33] LABS: IgG Subclass 3 69.2 mg/dL (11.0-85.0); IgG Subclass 4 24.3 mg/dL (3.0-175.0)
--- NOTE | 2017-12-07 16:18 | P.PN ---
Subjective 22-year-old pleasant female admitted for a right upper quadrant abdominal pain and epigastric abdominal pain. In spite of concerns of gastritis patient is on an nonsteroidal anti-inflammatories, patient is also on Protonix. Patient was evaluated by gastroenterology had a scan was obtained which showed decreased ejection fraction, Gen. surgery is not planning on any surgical intervention at this point of time that not requiring any antiemetics at this point of time. Patient can use to have elevated liver enzymes because of which in counseling gastroenterology hepatitis panel is being obtained. Patient's lipase is a bit elevated more than yesterday. Although patient nausea improved and patient is not having pain after eating because of that reason I'm continuing her diet which was ordered by surgery, I advised the patient if she has nausea vomiting or abdominal pain increased with food she had to stop eating and repeat lipase will be obtained tomorrow. She still has some epigastric abdominal pain and tenderness which she believes is secondary to surgery. 12/06/2017 Patient continues to have elevation of liver enzymes, gastric body evaluate the patient and obtaining autoimmune workup hepatitis panel is negative may be related to Augmentin. Patient was cleared for discharge from surgical perspective with the constricting her elevated liver enzymes are do not believe patient is ready for discharge patient's lipase is also going up, I'll make patient nothing by mouth at this time. Patient is not medically stable to be discharged at this time. 12/08/2079 Patient's pain is clinically negative patient liver enzymes continue to go up and pancreatic lipase it can you to go up as patient is insisting I'll start her on clear liquid diet we'll repeat these again tomorrow we will get opinion of the gastroenterology Constitutional: Denied any fatigue denied any fever. Cardio vascular: denied any chest pain, palpitations Gastrointestinal denied any nausea vomiting Pulmonary: Denied any shortness of breath cough Neurologic denied any new focal deficits Objective - Vital Signs Vital signs: Vital Signs Temp 98.2 F 12/07/17 15:00 Pulse 88 12/07/17 15:00 Resp 19 12/07/17 15:00 BP 107/58 12/07/17 15:00 Pulse Ox 99 12/07/17 15:00 Intake & Output 12/06/17 12/07/17 12/07/17 18:59 06:59 18:59 Intake Total 800 Balance 800 Weight 52.9 kg Intake: Intake, IV Titration 800 Amount Lactated Ringers 1,000 ml 800 @ 100 mls/hr IV .Q10H [facility] Rx#:[id number] Oral 0 Other: # Voids 1 1 2 # Bowel Movements 1 - Exam PHYSICAL EXAMINATION: GENERAL: The patient is alert and oriented x3, not in any acute distress. Well developed, well nourished. HEENT: Pupils are round and equally reacting to light. EOMI. No scleral icterus. No conjunctival pallor. Normocephalic, atraumatic. No pharyngeal erythema. No thyromegaly. CARDIOVASCULAR: S1 and S2 present. No murmurs, rubs, or gallops. PULMONARY: Chest is clear to auscultation, no wheezing or crackles. ABDOMEN: Soft, right upper quadrant and epigastric abdominal tenderness MUSCULOSKELETAL: No joint swelling or deformity. EXTREMITIES: No cyanosis, clubbing, or pedal edema. NEUROLOGICAL: Gross neurological examination did not reveal any focal deficits. SKIN: No rashes. - Labs CBC & Chem 7: 12/06/17 06:09 12/07/17 07:32 Labs: Abnormal Lab Results - Last 24 Hours (Table) 12/07/17 Range/Units 07:32 BUN 4 L (7-17) mg/dL Creatinine 0.51 L (0.52-1.04) mg/dL AST 390 H (14-36) U/L ALT 609 H (9-52) U/L Amylase 280 H (30-110) U/L Lipase 2012 H (23-300) U/L Assessment and Plan Plan: -Acute pancreatitis: Most probably gallstone pancreatitis. Patient does have elevated liver enzymes , etiology is not clear gastroenterology evaluate the patient and patient has a negative JOSELIN screen and hepatitis panel Patient has decreased ejection fraction on HIDA scan. Continue to have elevated liver enzymes . Patient may have drug induced cholestasis probably from Augmentin other consideration is Ativan -possibility of acute gastritis: Management as mentioned and uncontrolled history -Ileus: As mentioned above possibly gallstone ileus, resolved now -Elevated liver enzymes etiology is not clear hepatitis panel negative undergoing further workup for autoimmune diseases. Repeat compresses metabolic profile tomorrow, if liver enzymes trended down patient will be discharged I'll also obtain INR level.
[2017-12-07] MEDS: MELATONIN 5 MG TABLET PO SCH (22:01)
[2017-12-08 00:30] VITALS: RESP 16; TEMP 98.5
[2017-12-08 05:56] VITALS: BP 105/58; PULSE 70
[2017-12-08] MEDS: LORazepam 2 MG/ML INJ IV PRN (06:22)
[2017-12-08 08:48] LABS: ALT 521 U/L (9-52); AST 210 U/L (14-36); Albumin 3.7 g/dL (3.5-5.0); Alkaline Phosphatase 45 U/L (38-126); Amylase 223 U/L (30-110); Anion Gap 10 mmol/L; Blood Urea Nitrogen 2 mg/dL (7-17); Calcium 9.8 mg/dL (8.4-10.2); Carbon Dioxide 26 mmol/L (22-30); Chloride 104 mmol/L (98-107); Glucose 89 mg/dL (74-99); Lipase 1784 U/L (23-300); Potassium 4.3 mmol/L (3.5-5.1); Sodium 140 mmol/L (137-145); Total Bilirubin 0.3 mg/dL (0.2-1.3); Total Protein 6.5 g/dL (6.3-8.2)
[2017-12-08] MEDS: PANTOPRAZOLE 40 MG/10 ML VIAL IVP SCH (09:13)
[2017-12-08] MEDS: LACTATED RINGERS 1,000 ML IV SCH (09:14)
--- NOTE | 2017-12-08 12:02 | P.PN ---
Progress Note - Text Progress Note Date: 12/08/17 The patient feels better. She has no complaints of abdominal pain or nausea. Her liver flush test and amylase and lipase have improved. On exam her vital signs are stable. Her abdomen soft. Resolving pancreatitis. Patient was discharged home she'll follow-up assaulted one week.
--- NOTE | 2017-12-08 13:03 | P.DS ---
Providers Date of admission: 12/03/17 20:20 Attending physician: Emery Beavers Consults: 12/03/17 20:13 Consult Physician Urgent Consulting Provider: Joselito Lake Consult Reason/Comments: Recent Appendectomy; Pancreatitis Do you want consulting provider notified?: Yes 12/05/17 12:28 Consult Physician Routine Consulting Provider: Suzie Zepeda Consult Reason/Comments: elevated liver enzymes Do you want consulting provider notified?: Yes Primary care physician: Byron Perez [facility] Course: 22-year-old pleasant female admitted for a right upper quadrant abdominal pain and epigastric abdominal pain. In spite of concerns of gastritis patient is on an nonsteroidal anti-inflammatories, patient is also on Protonix. Patient was evaluated by gastroenterology had a scan was obtained which showed decreased ejection fraction, Gen. surgery is not planning on any surgical intervention at this point of time that not requiring any antiemetics at this point of time. Patient can use to have elevated liver enzymes because of which in counseling gastroenterology hepatitis panel is being obtained. Patient's lipase is a bit elevated more than yesterday. Although patient nausea improved and patient is not having pain after eating because of that reason I'm continuing her diet which was ordered by surgery, I advised the patient if she has nausea vomiting or abdominal pain increased with food she had to stop eating and repeat lipase will be obtained tomorrow. She still has some epigastric abdominal pain and tenderness which she believes is secondary to surgery. 12/06/2017 Patient continues to have elevation of liver enzymes, gastric body evaluate the patient and obtaining autoimmune workup hepatitis panel is negative may be related to Augmentin. Patient was cleared for discharge from surgical perspective with the constricting her elevated liver enzymes are do not believe patient is ready for discharge patient's lipase is also going up, I'll make patient nothing by mouth at this time. Patient is not medically stable to be discharged at this time. 12/07/2017 Patient's pain is clinically negative patient liver enzymes continue to go up and pancreatic lipase it can you to go up as patient is insisting I'll start her on clear liquid diet we'll repeat these again tomorrow we will get opinion of the gastroenterology 12/08/2017 Patient has improved lipase improved liver enzymes, patient is looking better symptomatically, patient said "Tylenol with Codeine 3 will be discontinued Augmentin will be discontinued which may be contributing to her poor liver function. Will be discharged today in stable medical condition to home to follow with Dr. Byron Leslie and Dr. Bui as an outpatient PHYSICAL EXAMINATION: GENERAL: The patient is alert and oriented x3, not in any acute distress. Well developed, well nourished. HEENT: Pupils are round and equally reacting to light. EOMI. No scleral icterus. No conjunctival pallor. Normocephalic, atraumatic. No pharyngeal erythema. No thyromegaly. CARDIOVASCULAR: S1 and S2 present. No murmurs, rubs, or gallops. PULMONARY: Chest is clear to auscultation, no wheezing or crackles. ABDOMEN: Soft, no significant tenderness abdominal surgical site areas appear to be clean MUSCULOSKELETAL: No joint swelling or deformity. EXTREMITIES: No cyanosis, clubbing, or pedal edema. NEUROLOGICAL: Gross neurological examination did not reveal any focal deficits. SKIN: No rashes. Assessment and Plan Plan: -Acute pancreatitis: Most probably gallstone pancreatitis. Patient does have elevated liver enzymes , etiology is not clear gastroenterology evaluate the patient and patient has a negative JOSELIN screen and hepatitis panel Patient has decreased ejection fraction on HIDA scan. Liver enzymes are better today. Patient may have drug induced cholestasis probably from Augmentin -possibility of acute gastritis: -Ileus: As mentioned above possibly gallstone ileus, resolved now -Elevated liver enzymes probably due to cholestasis from Augmentin Patient Condition at Discharge: Serious Plan - Discharge Summary New Discharge Prescriptions: Discontinued Acetaminophen with Codeine [Tylenol w/codeine #3] 1 tab PO Q6H PRN 3 Days # 12 tab PRN Reason: Moderate Pain Amoxicillin/Potassium Clav [Augmentin 875-125 Tablet] 1 tab PO Q12HR #10 tab No Action Ranitidine HCl [Zantac] 150 mg PO BID Falmina-28 1 tab PO HS Discharge Medication List Ranitidine HCl [Zantac] 150 mg PO BID 11/23/17 [History] Falmina-28 1 tab PO HS 11/25/17 [History] Follow up Appointment(s)/Referral(s): Byron Leslie MD [Primary Care Provider] - 3 Days Joselito Lake MD [STAFF PHYSICIAN] - 1 Week Patient Instructions/Handouts: Pancreatitis (DC), Low Fat Diet (DC), Bowel Obstruction (DC) Discharge Disposition: HOME SELF-CARE
== END 2017-12-08 12:44 | disposition home or self-care (01) | DRG 439 ==
LOC: EC 18:13 → 6PED 20:20 → EEVIPCON 20:20 → 4MS4W 12-06 19:15
PROVIDERS: ADMIT Internal Medicine; ATTEND Internal Medicine
DX: K85.10 Biliary acute pancreatitis without necrosis or infection (principal); K56.7 Ileus, unspecified; F41.9 Anxiety disorder, unspecified; K81.1 Chronic cholecystitis; K71.0 Toxic liver disease with cholestasis; T36.0X5A Adverse effect of penicillins, initial encounter; Z88.5 Allergy status to narcotic agent; Z88.1 Allergy status to other antibiotic agents; Z91.040 Latex allergy status
CPT/HCPCS: 36415; 74177; 76705; 78227; 80053; 80074; 81003; 81025; 82150; 82787; 83690; 85025; 85027; 86038; 96374; 99285

== ENCOUNTER → 2018-01-22 | Outpatient (CLI) | payer OTHER, BC ==
[2018-01-22 17:31] LABS: HGB 12.6 gm/dL (11.4-16.0); MCH 29.9 pg (25.0-35.0); MCHC 32.2 g/dL (31.0-37.0); MCV 92.9 fL (80.0-100.0); Platelet Count 265 k/uL (150-450); RBC 4.19 m/uL (3.80-5.40); RDW 13.4 % (11.5-15.5); WBC 6.5 k/uL (3.8-10.6)
[2018-01-22 18:04] LABS: ALT 31 U/L (9-52); AST 21 U/L (14-36); Albumin 4.7 g/dL (3.5-5.0); Alkaline Phosphatase 36 U/L (38-126); Anion Gap 10 mmol/L; Blood Urea Nitrogen 10 mg/dL (7-17); Calcium 10.4 mg/dL (8.4-10.2); Carbon Dioxide 25 mmol/L (22-30); Chloride 104 mmol/L (98-107); Glucose 87 mg/dL (74-99); Sodium 139 mmol/L (137-145); Total Bilirubin 0.3 mg/dL (0.2-1.3); Total Protein 7.8 g/dL (6.3-8.2)
[2018-01-22 18:47] LABS: Eosinophils # (M) 0.07 k/uL (0-0.7); Lymphocytes # (M) 3.38 k/uL (1.0-4.8); Monocytes # (M) 0.78 k/uL (0-1.0); Neutrophils # (M) 2.28 k/uL (1.3-7.7); Neutrophils % (M) 35 %; Nucleated Red Blood Cells 0 /100 WBC (0-0); Polychromasia Present; Total Cells Counted 100
== END | disposition home or self-care (01) ==
LOC: LABWHC1 16:43
PROVIDERS: ATTEND Internal Medicine Gastroenterology
DX: R79.89 Other specified abnormal findings of blood chemistry (principal)
CPT/HCPCS: 36415; 80053; 85025

== ENCOUNTER → 2018-02-04 | Outpatient (CLI) | payer OTHER, BC ==
[2018-02-04 17:12] LABS: Basophils % (A) 0 %; Eosinophils # (A) 0.1 k/uL (0-0.7); Eosinophils % (A) 1 %; HCT 38.7 % (34.0-46.0); HGB 12.6 gm/dL (11.4-16.0); Lymphocytes # (A) 3.4 k/uL (1.0-4.8); Lymphocytes % (A) 48 %; MCH 29.5 pg (25.0-35.0); MCHC 32.6 g/dL (31.0-37.0); MCV 90.5 fL (80.0-100.0); Mean Platelet Volume 7.3; Monocytes # (A) 0.3 k/uL (0-1.0); Monocytes % (A) 4 %; Neutrophils # (A) 3.2 k/uL (1.3-7.7); Neutrophils % (A) 45 %; Platelet Count 297 k/uL (150-450); RBC 4.28 m/uL (3.80-5.40); RDW 13.2 % (11.5-15.5); WBC 7.1 k/uL (3.8-10.6)
[2018-02-04 17:22] LABS: ALT 27 U/L (9-52); AST 16 U/L (14-36); Albumin 4.4 g/dL (3.5-5.0); Alkaline Phosphatase 33 U/L (38-126); Anion Gap 11 mmol/L; Blood Urea Nitrogen 7 mg/dL (7-17); Calcium 9.8 mg/dL (8.4-10.2); Carbon Dioxide 24 mmol/L (22-30); Chloride 105 mmol/L (98-107); Glucose 93 mg/dL (74-99); Sodium 140 mmol/L (137-145); Total Bilirubin 0.2 mg/dL (0.2-1.3); Total Protein 7.4 g/dL (6.3-8.2)
== END | disposition home or self-care (01) ==
LOC: LABWHC1 16:29
PROVIDERS: ATTEND Internal Medicine Gastroenterology
DX: R79.89 Other specified abnormal findings of blood chemistry (principal)
CPT/HCPCS: 36415; 80053; 85025

== ENCOUNTER → 2018-03-06 | Day surgery (SDC) | payer OTHER, BC ==
[2018-02-28 15:47] VITALS: BMI 22.6
[~2018-03-06] MED LIST: BUPIVACAIN-EPI 0.5%-1:200,000 30 ML VIAL SQ ONE; DEXAMETHASONE SOD PHOSPHATE 10 MG/ML 1 ML VIAL IV ONE; ESMOLOL 100 MG/10 ML VIAL ONE; GLYCOPYRROLATE 0.2 MG/ML 2 ML VIAL ONE; HEPARIN SODIUM,PORCINE 5,000 UNIT/ML 1 ML VIAL SQ ONE; HYDROcodone/APAP 7.5-325MG 1 EACH TAB PO ONE; HYDROmorphone (PF) 1 MG/ML ONE; LACTATED RINGERS 1,000 ML IV ONE; LACTATED RINGERS 1,000 ML IV SCH; LIDOCAINE 1% 20 ML VIAL (10MG/ML) FOR IV START INTRADERMA ONE; LIDOCAINE 1% INJ 10MG/ML (20 ML MDV) ONE; MIDAZOLAM 2 MG/2 ML VIAL IV PRN; MIDAZOLAM 2 MG/2 ML VIAL ONE; NEOSTIGMINE 1 MG/ML 10 ML VIAL ONE; PROPOFOL 10 MG/ML 20 ML VIAL IV ONE; ROCURONIUM BROMIDE 10 MG/ML 10 ML VIAL IV ONE; SCOPOLAMINE 1.5MG/72HR PATCH TRANSDERM ONE; SUCCINYLCHOLINE CHLORIDE 100 MG/5 ML SYR IV ONE; ceFAZolin IN SWFI 2 GM/20 ML SYRINGE IVP ONE; diphenhydrAMINE 50 MG/ML 1 ML VIAL IVP ONE; fentaNYL (PF) 50 MCG/ML 2 ML AMP IV PRN; fentaNYL (PF) 50 MCG/ML 2 ML AMP ONE
[2018-03-06] MEDS: ONDANSETRON 4 MG/2 ML VIAL IVP ONE ×2 (07:45→09:34)
--- NOTE | 2018-03-06 08:01 | P.GSHP ---
History of Present Illness H&P Date: 03/06/18 Chief Complaint: Upper quadrant pain This a 21-year-old female who's had right upper quadrant pain. Patient presents today for laparoscopic cholestatic. She had a recent HIDA scan with abnormal ejection fraction consistent with chronic cholecystitis. Past Medical History Past Medical History: No Reported History History of Any Multi-Drug Resistant Organisms: None Reported Past Surgical History: Appendectomy, Tonsillectomy Additional Past Surgical History / Comment(s): lap appy on november 25, discharged november 30 Past Anesthesia/Blood Transfusion Reactions: No Reported Reaction Past Psychological History: Anxiety Smoking Status: Never smoker Past Alcohol Use History: None Reported Past Drug Use History: None Reported - Past Family History Mother Family Medical History: No Reported History Medications and Allergies Home Medications Medication Instructions Recorded Confirmed Type Ranitidine HCl [Zantac] 150 mg PO BID 11/23/17 02/28/18 History Falmina-28 1 tab PO HS 11/25/17 02/28/18 History Ondansetron [Zofran] 4 mg PO Q8HR PRN 02/28/18 03/06/18 History Allergies Allergy/AdvReac Type Severity Reaction Status Date / Time azithromycin [From Zithromax] Allergy Unknown Verified 03/06/18 07:13 latex Allergy Rash/Hives Verified 03/06/18 07:13 tramadol [From Ultram] Allergy Rash/Hives Verified 03/06/18 07:13 Surgical - Exam Vital Signs Temp Pulse Resp BP Pulse Ox 98.2 F 80 16 109/72 97 03/06/18 07:24 03/06/18 07:24 03/06/18 07:24 03/06/18 07:24 03/06/18 07:24 - General well developed, well nourished, no distress - Eyes PERRL - ENT normal pinna - Neck no masses - Respiratory normal expansion - Cardiovascular Rhythm: regular - Abdomen Abdomen: soft, non tender Assessment and Plan Assessment: Chronic cholecystitis We'll perform laparoscopic cholecystectomy.
--- NOTE | 2018-03-06 09:15 | P.OP ---
Date of Procedure: 03/06/18 Preoperative Diagnosis: Cholecystitis Postoperative Diagnosis: Cholecystitis Procedure(s) Performed: Laparoscopic cholecystectomy Anesthesia: CLOTILDE Surgeon: Joselito Lake Estimated Blood Loss (ml): 5 Pathology: other (Gallbladder) Condition: stable Disposition: PACU Description of Procedure: The patient was placed on the operating table. The patient received a general endotracheal tube anesthesia. The patients abdomen was prepped and draped in the usual sterile fashion. Through an infraumbilical stab incision, the fascia of the anterior abdominal wall was grasped with a pair of Kochers and then the Veress needle was placed in the peritoneal cavity. Position of the Veress needle was confirmed with positive drop test. The abdomen was then insufflated. After adequate insufflation, the 10 mm trocar was placed in the peritoneal cavity. Following this the laparoscope was placed in the peritoneal cavity. The patient was placed in the head-up, right side up position and then a 5 mm trocar was placed in the right lateral and right subcostal position under direct visualization. A 8 mm trocar was placed in the epigastric position. The gallbladder was grasped in the fundus and infundibulum. Traction on the gallbladder was placed in the lateral and the cephalad positions. The triangle of Calot was visualized.. The cystic duct was bluntly dissected until the union of the cystic duct and common bile duct was seen. The cystic duct was then divided and sealed with the Harmonic scissors. A PDS Endoloop was then placed throughout the cystic duct stump. The cystic artery divided and sealed with the Harmonic scissors. The gallbladder was then removed from the liver bed using Harmonic scissors. The gallbladder was then extracted through the epigastric port site. Operative field was checked for any bleeding spots and Harmonic scissors was used to coagulate the liver bed. The abdomen was irrigated. The trocars were removed. The skin was closed using interrupted 3-0 Vicryl suture. Dermabond dressing were applied. The patient tolerated the procedure well.
[2018-03-06 09:16] VITALS: TEMP 97.2
[2018-03-06] MEDS: HYDROmorphone 1 MG/ML 1 ML SYRINGE IVP ONE ×2 (09:31→10:06)
[2018-03-06 11:32] VITALS: BP 121/82; RESP 16
[2018-03-06 12:22] VITALS: PULSE 96
== END | disposition home or self-care (01) ==
LOC: OR 06:53
PROVIDERS: ATTEND Surgery
DX: K81.1 Chronic cholecystitis (principal); K21.9 Gastro-esophageal reflux disease without esophagitis; Z79.3 Long term (current) use of hormonal contraceptives; Z79.899 Other long term (current) drug therapy; Z88.5 Allergy status to narcotic agent; Z88.8 Allergy status to other drugs, medicaments and biological substances; Z91.040 Latex allergy status
CPT/HCPCS: 81025; 88304; 47562; J2250; J1200; J1644; J1100; J2710; J2405; J2001; J3010; J1170; J0330; J2704; J0690

== ENCOUNTER → 2018-10-10 | Day surgery (SDC) | payer OTHER, BC ==
[2018-10-08 15:16] VITALS: BMI 21.4
[~2018-10-10] MED LIST changes: -BUPIVACAIN-EPI 0.5%-1:200,000 30 ML VIAL SQ ONE; -DEXAMETHASONE SOD PHOSPHATE 10 MG/ML 1 ML VIAL IV ONE; -ESMOLOL 100 MG/10 ML VIAL ONE; -GLYCOPYRROLATE 0.2 MG/ML 2 ML VIAL ONE; -HEPARIN SODIUM,PORCINE 5,000 UNIT/ML 1 ML VIAL SQ ONE; -HYDROcodone/APAP 7.5-325MG 1 EACH TAB PO ONE; -HYDROmorphone (PF) 1 MG/ML ONE; -LACTATED RINGERS 1,000 ML IV ONE; -LIDOCAINE 1% INJ 10MG/ML (20 ML MDV) ONE; +MIDAZOLAM (PF) 2 MG/2 ML VIAL IVP ONE; -MIDAZOLAM 2 MG/2 ML VIAL IV PRN; -MIDAZOLAM 2 MG/2 ML VIAL ONE; -NEOSTIGMINE 1 MG/ML 10 ML VIAL ONE; -ROCURONIUM BROMIDE 10 MG/ML 10 ML VIAL IV ONE; -SCOPOLAMINE 1.5MG/72HR PATCH TRANSDERM ONE; -SUCCINYLCHOLINE CHLORIDE 100 MG/5 ML SYR IV ONE; -ceFAZolin IN SWFI 2 GM/20 ML SYRINGE IVP ONE; -diphenhydrAMINE 50 MG/ML 1 ML VIAL IVP ONE; -fentaNYL (PF) 50 MCG/ML 2 ML AMP IV PRN; -fentaNYL (PF) 50 MCG/ML 2 ML AMP ONE
[2018-10-10 11:32] VITALS: RESP 18; TEMP 98.1
--- NOTE | 2018-10-10 12:15 | P.PCN ---
Date of Procedure: 10/10/18 Procedure(s) Performed: BRIEF HISTORY: Patient is a 23-year-old, pleasant, white female, scheduled for an upper endoscopy as a part of evaluation of intermittent episodes of severe epigastric pain for the last 3 months duration. These episodes happen once a week and lasts for about 20-30 minutes results. She had gallbladder surgery approximately a year ago for the same symptoms. She also has long-standing history of colon cancer and Zantac 150 milligrams twice daily with no help. Recently her medication was changed to omeprazole 40 mg daily but she had side effects and hence stopped the medication. PROCEDURE PERFORMED: Esophagogastroduodenoscopy with biopsy. PREOPERATIVE DIAGNOSIS: Were/intermittent episodes of epigastric pain for the last 2 months duration. IV sedation per anesthesia. PROCEDURE: After informed consent was obtained, the patient was brought into the endoscopy unit. IV sedation was administered by Anesthesia under continuous monitoring. Initially the Olympus GIF-140 video endoscope was inserted into the mouth. Esophagus intubated without any difficulty. It was gradually advanced into the stomach and duodenum and carefully examined. The bulb and the second part of the duodenum appeared normal. The scope at this time was withdrawn to the stomach, adequately insufflated with air, and upon careful examination, mucosa of the antrum had mild patchy areas of erythema in the pyloric area which was biopsied. The body, cardia and the fundus appeared normal. The scope was then withdrawn into the esophagus. The GE junction was located at 39 cm from the incisors. There were 2 superficial erosions at the GE junction consistent with LA grade A reflux esophagitis. Rest of the esophagus appeared normal nd the patient tolerated the procedure well. IMPRESSION: 1. Mild antral gastritis. 2. LA grade A reflux esophageal. RECOMMENDATIONS: The findings of this examination were discussed with the patient as well as a family. She was advised to follow with the biopsy results. She was given a prescription for Protonix 40 mg daily to be taken half hour before dinnertime and follow antireflux measures. She will be seen in the office in 6 weeks..
[2018-10-10 13:05] VITALS: BP 103/68; PULSE 66
== END ==
LOC: ORWHC2ENDO 11:05
PROVIDERS: ATTEND Internal Medicine Gastroenterology
DX: K29.50 Unspecified chronic gastritis without bleeding (principal); K21.0 Gastro-esophageal reflux disease with esophagitis; Z85.038 Personal history of other malignant neoplasm of large intestine; Z79.3 Long term (current) use of hormonal contraceptives; Z79.899 Other long term (current) drug therapy; Z88.1 Allergy status to other antibiotic agents; Z88.5 Allergy status to narcotic agent; Z91.040 Latex allergy status
CPT/HCPCS: 88305; 43239; J2704; J2250

== ENCOUNTER 2019-09-08 15:50 | Emergency (ER) | payer OTHER, BC ==
[2019-09-08 15:54] VITALS: RESP 18
[2019-09-08] MEDS ORDERED: ONDANSETRON 4 MG/2 ML VIAL IVP STA (15:59)
[2019-09-08] MEDS ORDERED: SODIUM CHLORIDE 0.9% 2,000 ML IV STA (15:59)
[2019-09-08] MEDS ORDERED: FAMOTIDINE 20 MG/2 ML VIAL IV STA (16:00)
[2019-09-08 16:29] LABS: Basophils % (A) 0 %; Eosinophils # (A) 0.1 k/uL (0-0.7); Eosinophils % (A) 1 %; HCT 43.3 % (34.0-46.0); HGB 14.2 gm/dL (11.4-16.0); Lymphocytes # (A) 2.1 k/uL (1.0-4.8); Lymphocytes % (A) 16 %; MCH 30.2 pg (25.0-35.0); MCHC 32.7 g/dL (31.0-37.0); MCV 92.4 fL (80.0-100.0); Mean Platelet Volume 7.5; Monocytes # (A) 0.6 k/uL (0-1.0); Monocytes % (A) 5 %; Neutrophils # (A) 10.4 k/uL (1.3-7.7); Neutrophils % (A) 78 %; Platelet Count 290 k/uL (150-450); RBC 4.69 m/uL (3.80-5.40); RDW 12.3 % (11.5-15.5); WBC 13.3 k/uL (3.8-10.6)
[2019-09-08 16:38] LABS: ALT 12 U/L (4-34); AST 19 U/L (14-36); African American GFR (CKD) >90 (>60 ml/min/1.73 sqM); Albumin 4.5 g/dL (3.5-5.0); Alkaline Phosphatase 41 U/L (38-126); Amylase 64 U/L (30-110); Anion Gap 10 mmol/L; Blood Urea Nitrogen 16 mg/dL (7-17); Calcium 9.3 mg/dL (8.4-10.2); Carbon Dioxide 25 mmol/L (22-30); Chloride 102 mmol/L (98-107); Glucose 92 mg/dL (74-99); Non-African American GFR(CKD) >90 (>60 ml/min/1.73 sqM); Potassium 3.6 mmol/L (3.5-5.1); Sodium 137 mmol/L (137-145); Total Bilirubin 0.8 mg/dL (0.2-1.3); Total Protein 7.6 g/dL (6.3-8.2)
--- NOTE | 2019-09-08 16:38 | ED ---
General Adult HPI - General Chief complaint: Nausea/Vomiting/Diarrhea Stated complaint: Vomiting Time Seen by Provider: 09/08/19 15:55 Source: patient, RN notes reviewed Mode of arrival: ambulatory Limitations: no limitations - History of Present Illness Initial comments: 24-year-old female presents emergency Department chief complaint of nausea vomiting. Patient states it started earlier today. Patient states that he declined at this time. Denies any abdominal pain. Patient has a significant diarrhea. She states she normally has one bowel movement every week states that this is normal for her. Patient denies any dysuria hematuria denies any chance . She's had a prior appendectomy and cholecystectomy. She reports no fever, chills, chest pain, headache, dizziness. Patient does admit that she was on steroids up until yesterday. She had a rash but states it was upsetting her stomach. - Related Data Home Medications Medication Instructions Recorded Confirmed Ranitidine HCl [Zantac] 150 mg PO BID 11/23/17 10/10/18 Control (Unknown Name) 1 tab PO HS 10/08/18 10/10/18 Previous Rx's Medication Instructions Recorded Ondansetron Odt [Zofran Odt] 4 mg PO Q8HR PRN #10 tab 09/08/19 Allergies Allergy/AdvReac Type Severity Reaction Status Date / Time azithromycin [From Zithromax] Allergy Unknown Verified 10/10/18 11:18 hydromorphone [From Dilaudid] Allergy Nausea & Verified 10/10/18 11:18 Vomiting latex Allergy Rash/Hives Verified 10/10/18 11:18 tramadol [From Ultram] Allergy Rash/Hives Verified 10/10/18 11:18 Review of Systems ROS Statement: Those systems with pertinent positive or pertinent negative responses have been documented in the HPI. ROS Other: All systems not noted in ROS Statement are negative. Past Medical History Past Medical History: GERD/Reflux Additional Past Medical History / Comment(s): STATES VOMITING WEEKLY., STATES DERMAL PIERCINGS (UNREMOVABLE)- IN-BETWEEN BREASTS, (2) ON EACH HIP AND (2) ON HER BACK. History of Any Multi-Drug Resistant Organisms: None Reported Past Surgical History: Appendectomy, Cholecystectomy, Tonsillectomy Additional Past Surgical History / Comment(s): MARIA L -FEB 2018 Past Anesthesia/Blood Transfusion Reactions: No Reported Reaction Past Psychological History: No Psychological Hx Reported Smoking Status: Never smoker Past Alcohol Use History: None Reported Past Drug Use History: None Reported - Past Family History Mother Family Medical History: No Reported History Additional Family Medical History / Comment(s): GRANDMOTHER = COLON CANCER General Exam Limitations: no limitations General appearance: alert, in no apparent distress Head exam: Present: atraumatic, normocephalic, normal inspection Eye exam: Present: normal appearance, PERRL, EOMI. Absent: scleral icterus, conjunctival injection, periorbital swelling ENT exam: Present: normal exam, normal oropharynx, mucous membranes moist Neck exam: Present: normal inspection. Absent: tenderness, meningismus, lymphadenopathy Respiratory exam: Present: normal lung sounds bilaterally. Absent: respiratory distress, wheezes, rales, rhonchi, stridor Cardiovascular Exam: Present: normal rhythm, tachycardia (Heart rate 53 ), normal heart sounds. Absent: systolic murmur, diastolic murmur, rubs, gallop, clicks GI/Abdominal exam: Present: soft, tenderness (Minimal diffuse there is no localized tenderness.), normal bowel sounds. Absent: distended, guarding, rebound, rigid Back exam: Absent: CVA tenderness (R), CVA tenderness (L) Neurological exam: Present: alert, oriented X3 Skin exam: Present: warm, dry, intact, normal color. Absent: rash Course Vital Signs 09/08/19 15:51 Temperature 98.0 F Pulse Rate 53 L Respiratory 18 Rate Blood Pressure 108/67 O2 Sat by Pulse 95 Oximetry - Reevaluation(s) Reevaluation #1: 09/08/19 16:37 Patient reevaluated at this time after antiemetics given she states her nausea has resolved pending lab work Reevaluation #2: 09/08/19 17:19 Patient reevaluated again she states that she has no nausea no abdominal pain. Patient updated on lab results. Medical Decision Making - Medical Decision Making Patient presented for nausea vomiting labs are unremarkable. Patient is improved after IV fluids and Zofran. This may be related to her steroid use or just a viral GI bug. Patient will be discharged in stable condition return parameters discussed. - Lab Data Result diagrams: 09/08/19 16:12 09/08/19 16:12 Lab Results 09/08/19 09/08/19 09/08/19 Range/Units 16:12 16:12 17:02 WBC 13.3 H (3.8-10.6) k/uL RBC 4.69 (3.80-5.40) m/uL Hgb 14.2 (11.4-16.0) gm/dL Hct 43.3 (34.0-46.0) % MCV 92.4 (80.0-100.0) fL MCH 30.2 (25.0-35.0) pg MCHC 32.7 (31.0-37.0) g/dL RDW 12.3 (11.5-15.5) % Plt Count 290 (150-450) k/uL Neutrophils % 78 % Lymphocytes % 16 % Monocytes % 5 % Eosinophils % 1 % Basophils % 0 % Neutrophils # 10.4 H (1.3-7.7) k/uL Lymphocytes # 2.1 (1.0-4.8) k/uL Monocytes # 0.6 (0-1.0) k/uL Eosinophils # 0.1 (0-0.7) k/uL Basophils # 0.0 (0-0.2) k/uL Sodium 137 (137-145) mmol/L Potassium 3.6 (3.5-5.1) mmol/L Chloride 102 (98-107) mmol/L Carbon Dioxide 25 (22-30) mmol/L Anion Gap 10 mmol/L BUN 16 (7-17) mg/dL Creatinine 0.62 (0.52-1.04) mg/dL Est GFR (CKD-EPI)AfAm >90 (>60 ml/min/1.73 sqM) Est GFR (CKD-EPI)NonAf >90 (>60 ml/min/1.73 sqM) Glucose 92 (74-99) mg/dL Calcium 9.3 (8.4-10.2) mg/dL Total Bilirubin 0.8 (0.2-1.3) mg/dL AST 19 (14-36) U/L ALT 12 (4-34) U/L Alkaline Phosphatase 41 (38-126) U/L Total Protein 7.6 (6.3-8.2) g/dL Albumin 4.5 (3.5-5.0) g/dL Amylase 64 (30-110) U/L Lipase 202 (23-300) U/L Urine Color Yellow Urine Appearance Cloudy H (Clear) Urine pH 5.5 (5.0-8.0) Ur Specific [place] 1.024 (1.001-1.035) Urine Protein Negative (Negative) Urine Glucose (UA) Negative (Negative) Urine Ketones Negative (Negative) Urine Blood Negative (Negative) Urine Nitrite Negative (Negative) Urine Bilirubin Negative (Negative) Urine Urobilinogen <2.0 (<2.0) mg/dL Ur Leukocyte Esterase Negative (Negative) Urine RBC 1 (0-5) /hpf Urine WBC 3 (0-5) /hpf Ur Squamous Epith Cells 6 H (0-4) /hpf Hyaline Casts 1 (0-2) /lpf Urine Mucus Occasional H (None) /hpf Urine HCG, Qual (Not Detectd) 09/08/19 Range/Units 17:02 WBC (3.8-10.6) k/uL RBC (3.80-5.40) m/uL Hgb (11.4-16.0) gm/dL Hct (34.0-46.0) % MCV (80.0-100.0) fL MCH (25.0-35.0) pg MCHC (31.0-37.0) g/dL RDW (11.5-15.5) % Plt Count (150-450) k/uL Neutrophils % % Lymphocytes % % Monocytes % % Eosinophils % % Basophils % % Neutrophils # (1.3-7.7) k/uL Lymphocytes # (1.0-4.8) k/uL Monocytes # (0-1.0) k/uL Eosinophils # (0-0.7) k/uL Basophils # (0-0.2) k/uL Sodium (137-145) mmol/L Potassium (3.5-5.1) mmol/L Chloride (98-107) mmol/L Carbon Dioxide (22-30) mmol/L Anion Gap mmol/L BUN (7-17) mg/dL Creatinine (0.52-1.04) mg/dL Est GFR (CKD-EPI)AfAm (>60 ml/min/1.73 sqM) Est GFR (CKD-EPI)NonAf (>60 ml/min/1.73 sqM) Glucose (74-99) mg/dL Calcium (8.4-10.2) mg/dL Total Bilirubin (0.2-1.3) mg/dL AST (14-36) U/L ALT (4-34) U/L Alkaline Phosphatase (38-126) U/L Total Protein (6.3-8.2) g/dL Albumin (3.5-5.0) g/dL Amylase (30-110) U/L Lipase (23-300) U/L Urine Color Urine Appearance (Clear) Urine pH (5.0-8.0) Ur Specific [place] (1.001-1.035) Urine Protein (Negative) Urine Glucose (UA) (Negative) Urine Ketones (Negative) Urine Blood (Negative) Urine Nitrite (Negative) Urine Bilirubin (Negative) Urine Urobilinogen (<2.0) mg/dL Ur Leukocyte Esterase (Negative) Urine RBC (0-5) /hpf Urine WBC (0-5) /hpf Ur Squamous Epith Cells (0-4) /hpf Hyaline Casts (0-2) /lpf Urine Mucus (None) /hpf Urine HCG, Qual Not Detected (Not Detectd) Disposition Clinical Impression: Nausea & vomiting Disposition: HOME SELF-CARE Condition: Stable Instructions (If sedation given, give patient instructions): Acute Nausea and Vomiting (ED) Additional Instructions: Please return to the Emergency Department if symptoms worsen or any other concerns. Prescriptions: Ondansetron Odt [Zofran Odt] 4 mg PO Q8HR PRN #10 tab PRN Reason: Nausea Is patient prescribed a controlled substance at d/c from ED?: No Referrals: Byron Leslie MD [Primary Care Provider] - 1-2 days Time of Disposition: 17:20
[2019-09-08 17:14] LABS: Appearance,Urine Cloudy (Clear); Bilirubin,Urine Negative (Negative); Blood,Urine Negative (Negative); Color,Urine Yellow; Glucose,Urine (UA) Negative (Negative); Hyaline Casts,Urine 1 /lpf (0-2); Ketones,Urine Negative (Negative); Leukocyte Esterase,Urine Negative (Negative); Mucus,Urine Occasional /hpf; Nitrite,Urine Negative (Negative); PH, Urine 5.5 (5.0-8.0); Protein,Urine Negative (Negative); RBC,Urine 1 /hpf (0-5); Specific Gravity,Urine 1.024 (1.001-1.035); Squamous Epithelial Cell,Urine 6 /hpf (0-4); Urobilinogen,Urine <2.0 mg/dL (<2.0); WBC,Urine 3 /hpf (0-5)
[2019-09-08] MEDS ORDERED: ONDANSETRON 4 MG ODT STARTER PACK 2 TAB BTL PO STA (17:19)
[2019-09-08 17:40] VITALS: BP 111/71; PULSE 111; TEMP 98.9
== END 2019-09-08 17:45 | disposition home or self-care (01) ==
LOC: EC 15:50
DX: R11.2 Nausea with vomiting, unspecified (principal); R19.7 Diarrhea, unspecified; K21.9 Gastro-esophageal reflux disease without esophagitis; Z79.899 Other long term (current) drug therapy; Z88.1 Allergy status to other antibiotic agents; Z88.5 Allergy status to narcotic agent; Z91.040 Latex allergy status
CPT/HCPCS: 36415; 80053; 82150; 83690; 85025; 81001; 81025; 99284; 96374; 96375; 96361; J2405; S0119

== ENCOUNTER 2021-12-04 09:11 | Inpatient (IN) | payer BC, OTHER ==
[2021-12-04] MEDS ORDERED: TERBUTALINE 1 MG/ML VIAL SQ PRN (10:01)
[2021-12-04] MEDS ORDERED: OXYTOCIN 10 UNIT/ML 1 ML VIAL IM PRN (10:01)
[2021-12-04] MEDS ORDERED: METHYLERGONOVINE 0.2 MG/ML 1 ML AMP IM PRN (10:01)
[2021-12-04] MEDS ORDERED: CARBOPROST TROMETHAMINE 250 MCG/ML 1 ML AMP IM PRN (10:01)
[2021-12-04] MEDS ORDERED: LIDOCAINE 0.5% (PF) 5 MG/ML (50 ML SDV) SQ PRN (10:01)
[2021-12-04] MEDS: LACTATED RINGERS 1,000 ML IV SCH ×2 (10:14→10:22)
[2021-12-04 10:29] LABS: Basophils # (A) 0.1 k/uL (0-0.2); Basophils % (A) 1 %; Eosinophils # (A) 0.1 k/uL (0-0.7); Eosinophils % (A) 0 %; HCT 36.7 % (34.0-46.0); HGB 11.6 gm/dL (11.4-16.0); Lymphocytes # (A) 2.4 k/uL (1.0-4.8); Lymphocytes % (A) 21 %; MCH 27.7 pg (25.0-35.0); MCHC 31.4 g/dL (31.0-37.0); MCV 88.2 fL (80.0-100.0); Mean Platelet Volume 9.9; Monocytes # (A) 0.5 k/uL (0-1.0); Monocytes % (A) 4 %; Neutrophils # (A) 7.8 k/uL (1.3-7.7); Neutrophils % (A) 70 %; Platelet Count 241 k/uL (150-450); RBC 4.17 m/uL (3.80-5.40); WBC 11.1 k/uL (3.8-10.6)
[2021-12-04] MEDS ORDERED: ROPIVACAINE 100 MG, fentaNYL (PF). 200 MCG in SODIUM CHLORIDE 0.9% 76 ML EPIDURAL ONE (10:47)
[2021-12-04 10:54] LABS: ALT 11 U/L (4-34); AST 20 U/L (14-36); African American GFR (CKD) >90 (>60 ml/min/1.73 sqM); Blood Urea Nitrogen 4 mg/dL (7-17); LDH 477 U/L (313-618); Non-African American GFR(CKD) >90 (>60 ml/min/1.73 sqM); Uric Acid 5.4 mg/dL (3.7-7.4)
[2021-12-04 11:55] LABS: Appearance,Urine Clear (Clear); Bilirubin,Urine Negative (Negative); Blood,Urine Small (Negative); Color,Urine Yellow; Glucose,Urine (UA) Negative (Negative); Ketones,Urine Negative (Negative); Leukocyte Esterase,Urine Negative (Negative); Mucus,Urine Moderate /hpf; Nitrite,Urine Negative (Negative); PH, Urine 6.5 (5.0-8.0); Protein,Urine Trace (Negative); RBC,Urine 41 /hpf (0-5); Specific Gravity,Urine 1.015 (1.001-1.035); Squamous Epithelial Cell,Urine 2 /hpf (0-4); Urobilinogen,Urine <2.0 mg/dL (<2.0); WBC,Urine 8 /hpf (0-5)
[2021-12-04 12:11] LABS: Creatinine,Urine Random 120.4 mg/dL; Protein/Creatinine Ratio,Urine 0.183
[2021-12-04] MEDS ORDERED: OXYTOCIN 30 UNITS/500 ML NS 30 UNIT in SALINE 1 500ML.BAG IV SCH ×2 (12:15→14:00)
[2021-12-04] MEDS ORDERED: LANOLIN CREAM 5 GM TUBE TOPICAL PRN (13:56)
[2021-12-04] MEDS ORDERED: diphenhydrAMINE 50 MG/ML 1 ML VIAL IVP PRN ×2 (13:56)
[2021-12-04] MEDS ORDERED: diphenhydrAMINE 50 MG CAP PO PRN (13:56)
[2021-12-04] MEDS ORDERED: SIMETHICONE 80 MG CHEWABLE PO PRN (13:56)
[2021-12-04] MEDS ORDERED: diphenhydrAMINE 25 MG CAP PO PRN (13:56)
[2021-12-04] MEDS ORDERED: ACETAMINOPHEN TAB 325 MG TAB PO PRN (13:56)
[2021-12-04] MEDS ORDERED: ZOLPIDEM 5 MG TAB PO PRN (13:56)
[2021-12-04] MEDS ORDERED: HYDROCORTISONE 2.5% RECTAL CREAM 30 GM TUBE RECTAL PRN (13:56)
[2021-12-04] MEDS ORDERED: BENZOCAINE/MENTHOL SPRAY 1 GM/SPRAY AEROSOL TOPICAL PRN (13:56)
--- NOTE | 2021-12-04 14:00 | P.HPOB ---
History of Present Illness H&P Date: 12/04/21 Chief Complaint: IUP at 38 and 6, labor, vaginal bleeding This is a 26-year-old 1 para 0 at 38-6/7 weeks, estimated due date of 12/12 presents to labor and delivery with complaints of regular painful contractions that began around 3 AM. Patient denied rupture of membranes, she noted good movement. Patient did complain of increased vaginal bleeding prior to presentation. Patient has been receiving routine care which has been essentially uncomplicated. Patient is known blood type of A+, rubella status nonimmune, hep Margret surface antigen negative, HIV negative, RPR is nonreactive, group beta strep is negative. Review of Systems Constitutional: Denies chills, Denies fatigue, Denies fever Ears, nose, mouth and throat: Denies headache Cardiovascular: Reports leg edema Respiratory: Denies dyspnea Gastrointestinal: Denies constipation, Denies diarrhea, Denies nausea, Denies vomiting Genitourinary: Reports Past Medical History Past Medical History: GERD/Reflux Additional Past Medical History / Comment(s): STATES VOMITING WEEKLY., STATES DERMAL PIERCINGS (UNREMOVABLE)- IN-BETWEEN BREASTS, (2) ON EACH HIP AND (2) ON HER BACK. History of Any Multi-Drug Resistant Organisms: None Reported Past Surgical History: Appendectomy, Cholecystectomy, Tonsillectomy Additional Past Surgical History / Comment(s): MARIA L -FEB 2018 Past Anesthesia/Blood Transfusion Reactions: No Reported Reaction Past Psychological History: Anxiety Smoking Status: Never smoker Past Alcohol Use History: None Reported Past Drug Use History: None Reported - Past Family History Mother Family Medical History: No Reported History Additional Family Medical History / Comment(s): GRANDMOTHER = COLON CANCER Medications and Allergies Home Medications Medication Instructions Recorded Confirmed Type Ranitidine HCl [Zantac] 150 mg PO BID 11/23/17 12/04/21 History Ondansetron Odt [Zofran Odt] 8 mg PO Q8HR PRN 12/04/21 12/04/21 History Allergies Allergy/AdvReac Type Severity Reaction Status Date / Time azithromycin [From Zithromax] Allergy Unknown Verified 12/04/21 09:28 hydromorphone [From Dilaudid] Allergy Nausea & Verified 12/04/21 09:28 Vomiting latex Allergy Rash/Hives Verified 12/04/21 09:28 tramadol [From Ultram] Allergy Rash/Hives Verified 12/04/21 09:28 Exam Osteopathic Statement: *. No significant issues noted on an osteopathic structural exam other than those noted in the History and Physical/Consult. 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 Patient received epidural prior to my presentation to the room. Reading is nonlabored, heart has regular rate and rhythm, abdomen is gravid and appropriate for gestational age, on cervical exam she was 5 cm 100% effaced at -1 station, rupture of membranes during epidural was appreciated with thick stained meconium fluid, category 1 heart tones were appreciated throughout, she was mohsen every 2-5 minutes. Results Result Diagrams: 12/04/21 10:00 12/04/21 10:00 Abnormal Lab Results - Last 24 Hours (Table) 12/04/21 12/04/21 12/04/21 Range/Units 10:00 10:00 11:04 WBC 11.1 H (3.8-10.6) k/uL Neutrophils # 7.8 H (1.3-7.7) k/uL BUN 4 L (7-17) mg/dL Urine Protein Trace H (Negative) Urine Blood Small H (Negative) Urine RBC 41 H (0-5) /hpf Urine WBC 8 H (0-5) /hpf Urine Mucus Moderate H (None) /hpf Assessment and Plan (1) Term Current Visit: Yes Status: Acute Code(s): Z34.90 - ENCNTR FOR SUPRVSN OF NORMAL , UNSP, UNSP TRIMESTER SNOMED Code(s): 55254651 (2) Active labor Current Visit: Yes Status: Acute Code(s): AXY4611 - SNOMED Code(s): 716150541 (3) Vaginal bleeding Current Visit: Yes Status: Acute Code(s): N93.9 - ABNORMAL UTERINE AND VAGINAL BLEEDING, UNSPECIFIED SNOMED Code(s): 439803730 Plan: 26-year-old 1 para 0 at 38-6/7 weeks presents to labor and delivery in active labor. Patient is admitted to labor and delivery, vaginal bleeding is monitored. Patient did quickly requested epidural which was placed by the anesthesia department after admission. Anticipate spontaneous vaginal delivery later today.
--- NOTE | 2021-12-04 14:03 | P.PROBDLV ---
Vaginal Delivery Note - . Vaginal Delivery Note: Twin 6-year-old 1 para 0 at 38-6/7 weeks that presented to labor and delivery this a.m. with complaints of increasing pain with contractions and vaginal bleeding. Patient was noted to be 2-3 cm upon admission. Vaginal bleeding was appreciated bright red in nature. Patient was admitted for expectant management. Patient was quite uncomfortable and did request epidural placement. Epidural was placed without difficulty by the anesthesia department, rupture of membranes was appreciated during anesthesia placement, thick meconium-stained fluid was appreciated.. Patient progressed through labor, quickly progressing to complete. Patient was placed in the modified lithotomy position and with excellent maternal effort did bring the infant down to a presentation. heart tones are noted to be in the 50s therefore patient was consented for vacuum assist vaginal delivery secondary to nonreassuring heart tones. Vacuum was placed and with one pull with a contraction the head was delivered section was deactivated, the anterior/p osterior shoulder were delivered along with the body. A loose nuchal was delivered through. Spontaneous cry was appreciated. The local cord was doubly clamped and cut and the was handed to awaiting RN. The placenta was then delivered spontaneously intact with three-vessel cord being noted. The uterus is noted to be firm and below the umbilicus at this time. The bladder was then drained for 200 mL of clear yellow urine via [place] catheter. On inspection the patient's vaginal vault a first 3 vaginal laceration was appreciated this was instilled with lidocaine and repaired in the usual fashion with 3-0 Rapide. Uterus once again was noted to be firm and below the umbilicus. Estimated blood loss 300 mL. Upon inspection of the vaginal laceration hemostasis was noted, all counts were noted to be correct 2 patient tolerated delivery well and are resting comfortably. Infant was noted to be 2 Therefore he was taken to the nursery for further monitoring.
[2021-12-04] MEDS: IBUPROFEN 600 MG TAB PO SCH ×3 (16:42→23:48)
[2021-12-04] MEDS ORDERED: SENNOSIDES-DOCUSATE SODIUM 1 EACH TAB PO SCH (20:00)
[2021-12-05] MEDS: IBUPROFEN 600 MG TAB PO SCH (06:44)
[2021-12-05 08:03] LABS: Basophils % (A) 0 %; Eosinophils % (A) 0 %; HCT 29.9 % (34.0-46.0); Hypochromasia Slight; Lymphocytes # (A) 2.1 k/uL (1.0-4.8); Lymphocytes % (A) 17 %; MCH 28.8 pg (25.0-35.0); MCV 90.1 fL (80.0-100.0); Mean Platelet Volume 9.9; Monocytes # (A) 0.4 k/uL (0-1.0); Monocytes % (A) 3 %; Neutrophils # (A) 9.7 k/uL (1.3-7.7); Neutrophils % (A) 77 %; Platelet Count 213 k/uL (150-450); RBC 3.32 m/uL (3.80-5.40); WBC 12.6 k/uL (3.8-10.6)
[2021-12-05 08:07] LABS: HGB 9.6 gm/dL (11.4-16.0)
--- NOTE | 2021-12-05 08:40 | P.PNOBGVD ---
Subjective - Subjective Principal diagnosis: day 1 Interval history: Patient is doing well , she is ambulating and voiding without difficulty. She states her lochia is moderate. She is pumping as the infant remains in the nursery on oxygen. She states her pain is controlled with oral ibuprofen. Patient reports: Reports appetite normal, Reports voiding normally, Reports pain well controlled, Reports ambulating normally : doing well (In the nursery on O2.) Objective - Latest Vital Signs Latest vital signs: Vital Signs Temp Pulse Resp BP Pulse Ox 12/05/21 04:00 98.2 F 75 14 109/75 98 12/04/21 23:57 98.2 F 83 14 131/85 98 12/04/21 20:22 98.3 F 76 14 125/81 98 12/04/21 16:00 96.8 F L 75 16 123/87 12/04/21 15:30 70 16 124/81 12/04/21 15:00 84 16 129/85 12/04/21 14:45 73 16 135/87 12/04/21 14:30 70 16 130/82 12/04/21 14:15 74 16 128/84 12/04/21 14:00 97.8 F 75 16 127/74 98 12/04/21 10:01 97.0 F L 67 18 140/95 12/04/21 09:45 97.2 F L 80 18 140/100 99 Intake and Output 12/04/21 12/05/21 12/05/21 22:59 06:59 14:59 Output Total 1803 Balance -1803 Output: Output, Quantitative 1803 Blood Loss Other: # Voids 1 - Exam Extremities: Present: normal - Labs Labs: Abnormal Lab Results - Last 24 Hours (Table) 12/04/21 12/04/21 12/04/21 Range/Units 10:00 10:00 11:04 WBC 11.1 H (3.8-10.6) k/uL RBC (3.80-5.40) m/uL Hgb (11.4-16.0) gm/dL Hct (34.0-46.0) % Neutrophils # 7.8 H (1.3-7.7) k/uL BUN 4 L (7-17) mg/dL Urine Protein Trace H (Negative) Urine Blood Small H (Negative) Urine RBC 41 H (0-5) /hpf Urine WBC 8 H (0-5) /hpf Urine Mucus Moderate H (None) /hpf 12/05/21 Range/Units 07:25 WBC 12.6 H (3.8-10.6) k/uL RBC 3.32 L (3.80-5.40) m/uL Hgb 9.6 L D (11.4-16.0) gm/dL Hct 29.9 L (34.0-46.0) % Neutrophils # 9.7 H (1.3-7.7) k/uL BUN (7-17) mg/dL Urine Protein (Negative) Urine Blood (Negative) Urine RBC (0-5) /hpf Urine WBC (0-5) /hpf Urine Mucus (None) /hpf Assessment and Plan (1) Term Current Visit: Yes Status: Acute Code(s): Z34.90 - ENCNTR FOR SUPRVSN OF NORMAL , UNSP, UNSP TRIMESTER SNOMED Code(s): 50007764 (2) Active labor Current Visit: Yes Status: Acute Code(s): NNT6787 - SNOMED Code(s): 435106813 (3) Vaginal bleeding Current Visit: Yes Status: Acute Code(s): N93.9 - ABNORMAL UTERINE AND VAGINAL BLEEDING, UNSPECIFIED SNOMED Code(s): 654737444 (4) Non-reassuring electronic monitoring tracing Current Visit: Yes Status: Acute Code(s): O36.8390 - MATERN CARE FOR ABNLT FETL HRT RATE OR RHYM, UNSP TRI, UNSP SNOMED Code(s): 474991286 (5) Status post vacuum-assisted vaginal delivery Current Visit: Yes Status: Acute Code(s): Z87.59 - PERSONAL HISTORY OF COMP OF PREG, CHLDBRTH AND THE PUERP SNOMED Code(s): 056306970 Plan: 26-year-old G1 now P1 status post vacuum-assisted vaginal delivery for nonreassuring heart tones, bradycardia at delivery. Patient is doing well this morning. remains in the nursery on oxygen therapy, thick meconium-stained fluid was appreciated when rupture of membranes was noted during delivery. We'll continue routine care and anticipate discharge home tomorrow for mom. Await pediatrics update on infant.
[2021-12-05 09:08] VITALS: BP 125/73; PULSE 99; RESP 16; TEMP 98.8
== END 2021-12-05 09:57 | disposition home or self-care (01) | DRG 806 ==
LOC: FBPOP 09:11 → 4FBP 09:32
PROVIDERS: ADMIT Obstetrics & Gynecology Obstetrics; ATTEND Obstetrics & Gynecology Obstetrics
PROC: 10E0XZZ Delivery of Products of Conception, External Approach (ICD-10-PCS; principal; 2021-12-04)
PROC: 0UQG7ZZ Repair Vagina, Via Natural or Artificial Opening (ICD-10-PCS; 2021-12-04)
DX: O77.0 Labor and delivery complicated by meconium in amniotic fluid (principal); O71.4 Obstetric high vaginal laceration alone; Z37.0 Single live birth; O76 Abnormality in fetal heart rate and rhythm complicating labor and delivery; Z3A.38 38 weeks gestation of pregnancy
CPT/HCPCS: 59025; 81001; 82565; 82570; 83615; 84156; 84450; 84460; 84520; 84550; 85025; 86850; 86900; 86901; 88307; 99213

== ENCOUNTER → 2023-05-20 | Outpatient (CLI) | payer OTHER ==
[2023-05-20 17:09] LABS: Basophils # (A) 0.07 X 10*3/uL (0.00-0.10); Basophils % (A) 0.9 %; Eosinophils # (A) 0.08 X 10*3/uL (0.04-0.35); Eosinophils % (A) 1.1 %; HCT 40.2 % (37.2-46.3); HGB 13.1 g/dL (12.0-15.0); Lymphocytes # (A) 3.18 X 10*3/uL (0.90-5.00); Lymphocytes % (A) 42.4 %; MCHC 32.6 g/dL (32.0-37.0); MCV 92.2 FL (80.0-97.0); Mean Platelet Volume 11.8 FL (9.5-12.2); Monocytes # (A) 0.48 X 10*3/uL (0.20-1.00); Monocytes % (A) 6.4 %; NRBC Per 100 WBC 0 X 10*3/uL (0.00-0.01); Neutrophils # (A) 3.68 X 10*3/uL (1.80-7.70); Neutrophils % (A) 49.1 %; Platelet Count 312 X 10*3/uL (140-440); RBC 4.36 X 10*6/uL (4.10-5.20); RDW 12.9 % (11.5-14.5)
== END | disposition home or self-care (01) ==
LOC: LABPAT 12:22
PROVIDERS: ATTEND Obstetrics & Gynecology Obstetrics
DX: Z01.812 Encounter for preprocedural laboratory examination (principal)
CPT/HCPCS: 85025

== ENCOUNTER 2023-06-07 09:58 | Day surgery (SDC) | payer BC, OTHER ==
[2023-06-03 16:06] VITALS: BMI 22.6
--- NOTE | 2023-06-07 08:40 | P.HPOB ---
History of Present Illness H&P Date: 06/07/23 Chief Complaint: Undesired fertility, family planning complete This is a 28-year-old that presented to the office for counseling regarding tubal ligation. Patient states she is done with childbearing and desires permanent sterilization. SAUTE CHEF history 12/04/2021, normal spontaneous vaginal delivery Review of Systems Constitutional: Denies chills, Denies fatigue, Denies fever Ears, nose, mouth and throat: Denies headache Cardiovascular: Denies leg edema Respiratory: Denies dyspnea Gastrointestinal: Denies nausea, Denies vomiting Genitourinary: Denies Past Medical History Past Medical History: GERD/Reflux Additional Past Medical History / Comment(s): STATES DERMAL PIERCINGS (UNREMOVABLE)- , (2) ON EACH HIP AND (2) ON HER BACK. History of Any Multi-Drug Resistant Organisms: None Reported Past Surgical History: Appendectomy, Cholecystectomy, Tonsillectomy Additional Past Surgical History / Comment(s): MARIA L -FEB 2018 Past Anesthesia/Blood Transfusion Reactions: No Reported Reaction Smoking Status: Never smoker - Past Family History Mother Family Medical History: No Reported History Additional Family Medical History / Comment(s): GRANDMOTHER = COLON CANCER Medications and Allergies Home Medications Medication Instructions Recorded Confirmed Type busPIRone HCl [Buspar] 5 mg PO DAILY 06/03/23 06/03/23 History Allergies Allergy/AdvReac Type Severity Reaction Status Date / Time azithromycin [From Zithromax] Allergy Rash/Hives Verified 06/03/23 15:34 hydromorphone [From Dilaudid] Allergy Nausea & Verified 06/03/23 15:34 Vomiting latex Allergy Rash/Hives Verified 06/03/23 15:34 tramadol [From Ultram] Allergy Rash/Hives Verified 06/03/23 15:34 Exam Osteopathic Statement: *. No significant issues noted on an osteopathic structural exam other than those noted in the History and Physical/Consult. 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 Vaginal Mucosa Is Noted Be [place] and Well Rugated, Cervix Is without Lesion and No Adnexal Masses Are Appreciated. Uterus Feels Normal in Size and Midplane. Assessment and Plan (1) Family planning Status: Acute Code(s): Z30.09 - ENCOUNTER FOR OT GENERAL CNSL AND ADVICE ON CONTRACEPTION SNOMED Code(s): 583259035 Plan: 28-year-old presents for operative laparoscopy with bilateral salpingectomy, options for contraception were reviewed including oral contraceptive pills, IUD, nexplanon, Depo-Provera. Patient states she wishes permanent sterilization as she is done with childbearing. Patient does struggle with her mental health, and states it is stable on BuSpar. Surgery is reviewed and questions are answered. Patient does have a history of an appendectomy which could've caused scarring therefore delayed to procedure secondary to adhesions is discussed. Patient states if unable to do a salpingectomy she does not desire Filshie clips. We'll proceed with planned operative laparoscopy with bilateral salpingectomy.
[~2023-06-07 09:58] MED LIST changes: +DEXAMETHASONE SOD PHOSPHATE 4 MG/ML 1 ML VIAL IV ONE; -LACTATED RINGERS 1,000 ML IV SCH; +LIDOCAINE 1% (10MG/ML) FOR IV START INTRADERMA PRN; -LIDOCAINE 1% 20 ML VIAL (10MG/ML) FOR IV START INTRADERMA ONE; -MIDAZOLAM (PF) 2 MG/2 ML VIAL IVP ONE; +ONDANSETRON 4 MG/2 ML VIAL IVP ONE; -PROPOFOL 10 MG/ML 20 ML VIAL IV ONE; +Pre Op ABX Message 1 EACH MISC MISCELLANE ONE; +SCOPOLAMINE 1 MG/72 HR PATCH TRANSDERM ONE; +droPERidol 5 MG/2 ML VIAL IVP ONE
[2023-06-07] MEDS ORDERED: MIDAZOLAM 2 MG/2 ML VIAL IVP ONE ×2 (10:40→11:00)
[2023-06-07] MEDS ORDERED: LACTATED RINGERS 1,000 ML IV ONE (10:40)
[2023-06-07 11:04] VITALS: RESP 16
[2023-06-07] MEDS ORDERED: BUPIVACAINE (PF) 0.25% 30 ML VIAL SQ ONE ×2 (11:22)
[2023-06-07] MEDS ORDERED: fentaNYL (PF) 50 MCG/ML 2 ML AMP ONE (11:36)
[2023-06-07] MEDS ORDERED: KETOROLAC 15 MG/ML 1 ML VIAL ONE (11:36)
[2023-06-07] MEDS ORDERED: MIDAZOLAM 2 MG/2 ML VIAL ONE (11:36)
[2023-06-07] MEDS ORDERED: ROCURONIUM 10 MG/ML (5 ML VIAL) IV ONE (11:36)
[2023-06-07] MEDS ORDERED: SUCCINYLCHOLINE CHLORIDE 200 MG/10 ML VIAL IV ONE (11:36)
[2023-06-07] MEDS ORDERED: PHENYLEPHRINE 10 MG/ML VIAL ONE (11:36)
[2023-06-07] MEDS ORDERED: PROPOFOL 10 MG/ML 20 ML VIAL IV ONE (11:36)
[2023-06-07] MEDS ORDERED: GLYCOPYRROLATE 0.2 MG/ML 2 ML VIAL ONE (11:36)
[2023-06-07] MEDS ORDERED: LIDOCAINE 1% INJ 10MG/ML (20 ML MDV) ONE (11:36)
[2023-06-07] MEDS ORDERED: NEOSTIGMINE 1 MG/ML 10 ML VIAL ONE (11:36)
--- NOTE | 2023-06-07 12:39 | P.OP ---
Date of Procedure: 06/07/23 Preoperative Diagnosis: Tired fertility, family status complete Postoperative Diagnosis: Same Procedure(s) Performed: Operative laparoscopy with bilateral salpingectomy Anesthesia: CINDYA Surgeon: Yamile Ng Estimated Blood Loss (ml): 5 IV fluids (ml): 700 Urine output (ml): 100 Pathology: other (Bilateral fallopian tubes) Condition: stable Disposition: PACU Indications for Procedure: Undesired fertility desires permanent sterilization Operative Findings: Filmy omental adhesions in the right mid abdomen normal uterus tubes and ovaries were appreciated. Description of Procedure: Patient was taken back to the operating suite were general anesthesia was obtained without difficulty by the anesthesia department. She was prepped and draped in normal sterile fashion in the dorsal lithotomy position. Latex free catheter was used to drain the bladder clear yellow urine. A speculum was placed the cervix was visualized, and the anterior lip of the cervix was grasped with a single-tooth tenaculum. An acorn uterine and bladder was advanced into the cervix as a means to miniplate the uterus throughout the procedure. Attention was then turned the patient's abdomen where approximately one finger breadth above the umbilicus a small skin incision is made. Through this incision the Veress needles placed. Once the Veress needle deemed to be in the proper position with a drop of CO2 pressure CO2 insufflation was allowed to occur. Proximally 3 L of gas or used to obtain pneumoperitoneum. At this time a 5 mm trocar and sleeve is placed through the skin incision and toward the pneumoperitoneum with the laparoscope in the trocar, direct visualization. The above-noted findings were then visualized. Additional 8 mm port site is placed in the right mid abdomen with good visualization of placement. The right fallopian tube fimbria is elevated and transected with the LigaSure this continued through the mesosalpinx and toward the cornual. This segment of fall opian tube was then removed through the 8 mm trocar site without difficulty and passed off. This was then repeated on the opposite side with the LigaSure starting at the cornual region through the mesosalpinx toward the fimbriated and this segment of fallopian tube was then passed off field. Tubal site was inspected hemostasis was appreciated. All instrument removed from the patient's abdomen the skin incisions were closed with 4-0 Vicryl in a subcuticular fashion. Steri-Strips and sterile dressings were applied. All counts noted correct 2 at the end of the procedure. Patient tolerated procedure well and was taken the recovery room awake in stable condition.
[2023-06-07 12:45] VITALS: TEMP 97.4
[2023-06-07] MEDS: fentaNYL (PF) 50 MCG/ML 2 ML AMP IV PRN ×2 (12:56→13:09)
[2023-06-07] MEDS: LACTATED RINGERS 1,000 ML IV SCH ×2 (13:00→13:39)
[2023-06-07] MEDS ORDERED: Acetaminophen-Codeine 300-30mg TAB ONE (14:13)
[2023-06-07] MEDS ORDERED: Acetaminophen-Codeine 300-30mg TAB PO ONE (14:15)
[2023-06-07] MEDS ORDERED: ONDANSETRON 4 MG/2 ML VIAL ONE (14:27)
[2023-06-07] MEDS ORDERED: ONDANSETRON 4 MG/2 ML VIAL IVP ONE (14:30)
[2023-06-07 15:13] VITALS: BP 112/71; PULSE 81
== END 2023-06-07 15:15 | disposition home or self-care (01) ==
LOC: OR 09:58
PROVIDERS: ATTEND Obstetrics & Gynecology Obstetrics
DX: Z30.2 Encounter for sterilization (principal); Z90.49 Acquired absence of other specified parts of digestive tract; Z98.890 Other specified postprocedural states; Z80.0 Family history of malignant neoplasm of digestive organs; Z79.899 Other long term (current) drug therapy; Z88.1 Allergy status to other antibiotic agents; Z88.5 Allergy status to narcotic agent; Z91.040 Latex allergy status; Z88.8 Allergy status to other drugs, medicaments and biological substances
CPT/HCPCS: 58661; 81025; 88302; J2250; J0330; J1100; J2710; J2405; J2001; J3010; J1885; J2704; J2371; J0665